=== PATIENT | male | born 1955 | race Caucasian/White ===

== ENCOUNTER 2019-08-31 09:15 | Emergency (ER) | payer OTHER, SELFPAY ==
[2019-08-31 09:16] VITALS: BP 130/77; PULSE 88; RESP 16; TEMP 36.9; O2SAT 96; BMI 35.1
--- NOTE | 2019-08-31 09:27 | RAD_ITS ---
STUDY: X-RAY - RIGHT KNEE REASON FOR EXAM: Male, 64 years old. Pain and swelling TECHNIQUE: 3 view(s) of the knee. COMPARISON: None. FINDINGS: There is demineralization of the visualized distal femur. There is demineralization of the tibia and fibula. Normal proximal tibiofibular articulation. Normal medial femorotibial compartment. Normal lateral femorotibial compartment. There is mild degenerative arthrosis of the patellofemoral articulation. There is focal superficial soft tissue edema anterior to the patella. RAD/Knee 3 Views IMPRESSION: Bony osteopenia. No visualized fracture. Superficial soft tissue edema. Electronically Signed: Maggie Augustine MD at 10:06 EST Tel , Service support ,
--- NOTE | 2019-08-31 09:29 | ED.VIS.GEN ---
History of Present Illness Informant: Patient Onset: Days - 2 Narrative: 64-year-old male with no reported past medical history presents with right knee pain. Patient dates of last 2 days has been having gradually worsening pain in his right knee. Denies any definite falls or injuries. However, he states that he does frequently bump it at work. States that last night he began to have worsening swelling. Denies any fever. Denies any nausea vomiting or diarrhea. Has been taking Tylenol with minimal relief. <Herminio Ascencio - Last Filed: 08/31/19 10:35> Context: Gradual Onset Current Severity: Moderate Maximum Severity: Moderate <Victoria Holman - Last Filed: 08/31/19 17:11> Chief Complaint: Lower Extremity Injury Past Medical History Surgical History: herniorrhaphy - R inguinal, - - metal plate in head, R temporal area. Had a colonoscopy in 2012 which was normal Smoking Status: Never smoker <Herminio Ascencio - Last Filed: 08/31/19 10:35> Past Medical History: None Lives: Spouse/ Significant Other <Victoria Holman - Last Filed: 08/31/19 17:11> - Allergies and Home Meds Allergies/Adverse Reactions: Allergies No Known Allergies Allergy (Verified 08/31/19 09:18) Primary Care Physician: Riki Pepper MD [STAFF PHYSICIAN] - 10-14 Days if not better Albert James MD [STAFF PHYSICIAN] - 3-5 Days Care Physician,No Primary [Primary Care Provider] - Review of Systems General: Denies: Chills, Fever Eyes: Denies: Visual changes - bilaterally Cardiovascular: Denies: Chest pain Respiratory: Denies: Dyspnea, Cough Gastrointestinal: Denies: Abdominal pain, Nausea, Diarrhea Musculoskeletal: Reports: Arthralgias, Swelling Skin: Denies: Rash, Abscess <Herminio Ascencio - Last Filed: 08/31/19 10:35> Neurological: Denies: Weakness, Parasthesia Hematologic: Denies: Easy bruising, Easy bleeding Allergy: Denies: Uticaria <Victoria Holman - Last Filed: 08/31/19 17:11> Physical Exam Vital Signs/Narrative: Vital Signs Temp Pulse Resp BP Pulse Ox 08/31/19 09:16 98.4 F 88 16 130/77 H 96 Inital Vital Signs reviewed: Yes General: Well nourished, Well developed Head: Normocephalic Eyes: Perrl, EOMI ENT: Moist mucous membranes Cardiovascular: Regular rate, Regular rhythm Respiratory: No distress, CTA bilaterally Abdomen: Soft, Nontender Extremities: - - Patient has what appears to be a prepatellar bursitis. Fluctuance over the patella. No warmth or erythema. Full range of motion of his right knee. No short arc range of motion pain. Distal pulses intact. Skin: Normal color, No rash <HollyHerminio kraus - Last Filed: 08/31/19 10:35> Neurological: Alert, Oriented x3 Psychological: Normal affect <Victoria Holman - Last Filed: 08/31/19 17:11> Diagnostic/Tx/Re-eval - Medical Decision Making Evaluated for right knee swelling and pain. On exam he appears to have a prepatellar bursitis. I do not suspect a septic arthritis. He has no short arc pain with range of motion. X-ray obtained. His x-ray is unremarkable. Knee was cleaned with chlorhexidine. 18-gauge needle was used to aspirate 10 cc of non-turbid fluid from patella bursa. Knee then wrapped with Hunter wrap. Patient tolerated procedure well She is given naproxen and prednisone. Given orthopedic and primary care doctor referral. Patient was then discharged home. Patient was given strict return precautions <Herminio Ascencio - Last Filed: 08/31/19 10:35> Impressions Knee X-Ray 08/31/19 09:27 IMPRESSION: Bony osteopenia. No visualized fracture. Superficial soft tissue edema. Electronically Signed: Maggie Augustine MD at 10:06 EST Tel , Service support , 08/31/19 09:27 Xray Knee [Knee 3 Views] [RAD] Stat - Medical Decision Making Patient seen and evaluated with resident. Patient presents with a couple day history of increasing right knee pain. This morning he was seen feeling more swollen. 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 Denies any specific injury. Patient sitting upright in bed no acute distress. Head neck examination unremarkable. Heart is regular rate and rhythm. Lung sounds are clear. Abdomen is soft and nontender. Right lower extremity examination reveals prepatellar swelling consistent with bursitis. Minimal erythema. No significant warmth. Patient has slow range of motion of the right knee secondary to swelling and pain. Strong distal pulses are noted. Right knee x-rays are obtained. Fluid is withdrawn from the bursal sac. It does not appear hazy. Hunter wrap was applied over the knee. He is given naproxen and prednisone. He is referred to local PCP and orthopedics for follow-up. <Victoria Holman - Last Filed: 08/31/19 17:11> ED Disposition <Herminio Ascencio - Last Filed: 08/31/19 10:35> <Victoria Holman - Last Filed: 08/31/19 17:11> - Plan for ED Patient: Disposition: Home or Assisted Living Diagnosis: Bursitis Instructions: Bursitis Prescriptions: Naproxen [Naprosyn] 500 mg PO BID PRN #20 tab Prescription Printed predniSONE tablet 60 mg PO DAILY #12 tab Prescription Printed Referrals: Care Physician,No Primary [Primary Care Provider] - Riki Pepper MD [STAFF PHYSICIAN] - 10-14 Days if not better Albert James MD [STAFF PHYSICIAN] - 3-5 Days
[2019-08-31] MEDS: Naproxen 500 MG Tablet PO (11:13)
[2019-08-31] MEDS: predniSONE 20 MG Tablet 40 MG PO (11:13)
== END 2019-08-31 11:25 | disposition home or self-care (01) ==
PROVIDERS: Emergency Provider Emergency Medicine
DX: M70.41 Prepatellar bursitis, right knee (principal)
CPT/HCPCS: 20610; 73562; 99283

== ENCOUNTER 2019-09-16 12:31 | Emergency (ER) | payer OTHER, SELFPAY ==
[2019-09-16 12:31] VITALS: BP 130/79; PULSE 74; RESP 18; TEMP 36.6; O2SAT 96; BMI 38.3
--- NOTE | 2019-09-16 15:06 | ED.VISSUMM ---
- ER Visit Summary Date of Service: 09/16/19 Chief Complaint: Right knee pain History of Present Illness: The patient is a 64 M history of prior bursitis. States he states that this is swollen in the past. In the last 2 days it swollen again. Smiling and comfortable. He does kneel on his knees from time to time. He denies any fall or trauma. No fever or chills. No prior knee surgery. No other complaints. Physical Examination: Older male no acute distress vital signs stable afebrile. H EENT exam unremarkable. Lungs are clear. Heart regular rhythm. Abdomen soft nontender. Extremities moves all 4. Neurovascular intact. He is an obvious right knee prepatellar bursitis. Mildly tender. Mildly swollen. There is no signs of septic joint. No cellulitis. No significant redness. He has normal range of motion to his knee. There is no gross bony deformity. Right foot is neurovascular intact. There is no edema or calf tenderness in the right lower leg. Test Results: None Emergency Department Course and Treatment: Procedure note: Right knee was cleaned with Shur-Clens washed and then cleaned with iodine. I withdrew about 15 cc of straw-colored bursa fluid but also had a small amount of blood consistent with a traumatic bursitis. There is no pus. It was not cloudy. I then injected 10 mg of Kenalog. Patient tolerated procedure well. He was warned to watch for any signs of infection. Treatment Plan: Ice the knee. Elevate. Follow-up with orthopedics. Jer for pain and inflammation. Disposition: Discharge Impression: Right knee prepatellar bursitis Bursa aspiration and bursa steroid injection with Kenalog by ER This note was generated with [employer] dictation software. It may contain incorrect words, spelling, and punctuation that were not noted in review of the chart prior to signing ED Disposition - Plan for ED Patient: Referrals: Care Physician,No Primary [Primary Care Provider] -
--- NOTE | 2019-09-16 15:09 | ED.DEP ---
ED Disposition - Plan for ED Patient: Disposition: Home or Assisted Living Instructions: Bursitis Referrals: Garrett Gan DO [STAFF PHYSICIAN] - 1 Week if not improving Additional Instructions: Ice and elevate your right knee to decrease inflammation of the bursa sac. Aleve for pain and inflammation. Watch for any signs of infection such as pain fever or chills or severe redness about your knee. Is seen return. Follow-up with a local orthopedic surgeon to discuss further treatment of your right knee prepatellar bursitis if it returns or gets worse.
[2019-09-16] MEDS: Triamcinolone Acetonide 40 MG/ML Vial IU (15:24)
== END 2019-09-16 15:27 | disposition home or self-care (01) ==
PROVIDERS: Emergency Provider Emergency Medicine
DX: M70.41 Prepatellar bursitis, right knee (principal)
CPT/HCPCS: 20610; 99282

== ENCOUNTER 2019-11-22 11:47 | Emergency (ER) | payer SELFPAY ==
[2019-11-22 11:48] VITALS: BP 118/64; PULSE 75; RESP 16; TEMP 36.3; O2SAT 97; BMI 36.3
--- NOTE | 2019-11-22 12:42 | ED.VIS.GEN ---
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 States is on his knees a lot. He has had this drained several times in the past. He presents because of swelling and slight discomfort. There is no history of diabetes. He is not on an anticoagulant. He denies paresthesia, anesthesia or motor weakness. Prior similar symptoms: No Recent Illness/Hospitalization: No - Past Medical History (1) Bursitis of right knee Status: Acute (2) Chest pain Status: Acute (3) GERD (gastroesophageal reflux disease) Status: Chronic Past Medical History - Allergies and Home Meds Allergies/Adverse Reactions: Allergies No Known Allergies Allergy (Verified 11/22/19 11:50) Primary Care Physician: Care Physician,No Primary [Primary Care Provider] - Prior records reviewed: Yes Surgical History: herniorrhaphy - R inguinal, - - metal plate in head, R temporal area. Had a colonoscopy in 2013 which was normal Lives: Spouse/ Significant Other Smoking Status: Never smoker Alcohol: None Drugs: None Review of Systems General: Denies: Chills, Fever, Subjective, Sweats Musculoskeletal: Reports: Swelling, Extremity Pain. Denies: Myalgias, Arthralgias, Neck pain, Back pain, -, - Skin: Denies: Rash, Wounds Neurological: Denies: Weakness, Parasthesia, Numbness Hematologic: Denies: Easy bruising, Easy bleeding Allergy: Denies: Uticaria, Swelling of the mouth, Swelling of the tongue Physical Exam Vital Signs/Narrative: Vital Signs Temp Pulse Resp BP Pulse Ox 11/22/19 11:48 97.4 F L 75 16 118/64 97 Inital Vital Signs reviewed: Yes General: Well nourished, Well developed, Obese, No Acute Distress Head: Normocephalic, Atraumatic Eyes: Perrl, EOMI ENT: Moist mucous membranes, No rhinorrhea Cardiovascular: Regular rate Respiratory: Diminished Extremities: Nontender, No edema, - - Has a prepatellar bursitis on the right. There is no erythema, warmth, induration or lymphangitis. There is no inguinal adenopathy. There is fluctuance. Skin: Normal color, No rash Neurological: Alert, Oriented x3, Cranial nerves II-XII grossly intact, Normal Strength, Normal Sensation Psychological: Normal affect, Normal Mood Diagnostic/Tx/Re-eval - Medical Decision Making Traumatic versus septic bursitis Procedures Procedure(s): He was prepped draped. Using an 18-gauge needle 26 cc of bloody serous fluid was aspirated. It does not appear turbid. ED Disposition - Plan for ED Patient: Disposition: Home or Assisted Living Diagnosis: Bursitis of right patella Instructions: Bursitis Referrals: Care Physician,No Primary [Primary Care Provider] - Additional Instructions: She do not have a primary care physician you were referred to Dr. Danilo Lechuga
[2019-11-22 12:56] VITALS: RESP 18
== END 2019-11-22 12:58 | disposition home or self-care (01) ==
LOC: ED 12:57
PROVIDERS: Emergency Provider Emergency Medicine
DX: M70.41 Prepatellar bursitis, right knee (principal); Y93.9 Activity, unspecified; R07.9 Chest pain, unspecified; K21.9 Gastro-esophageal reflux disease without esophagitis; E66.9 Obesity, unspecified
CPT/HCPCS: 20610; 99282

== ENCOUNTER 2021-09-29 09:52 | Emergency (ER) | payer OTHER, SELFPAY ==
[2021-09-29 09:54] VITALS: BP 142/92; PULSE 101; RESP 18; TEMP 36.8; O2SAT 95; BMI 39.6
--- NOTE | 2021-09-29 10:09 | RAD_ITS ---
STUDY: X-RAY CHEST REASON FOR EXAM: Male, 66 years old. Cough TECHNIQUE: Single AP portable view of the chest. COMPARISON: Comparison is made with prior study 02/03/2014. FINDINGS: There is hyperinflation of the lungs consistent with chronic obstructive lung disease (COPD). There is no demonstrated pleural abnormality. Normal size heart. Normal mediastinum and meagan. Normal visualized pulmonary arteries. Normal visualized aortic arch and descending thoracic aorta. There are diffuse degenerative changes of the visualized thoracic spine. Normal visualized ribs, clavicles, and shoulders. There is no demonstrated abnormality of the visualized soft tissue structures of the upper abdomen. RAD/Chest 1 View (Portable) IMPRESSION: Hyperinflation. Electronically Signed: Mega Jones MD at 11:33 EST , Service support ,
--- NOTE | 2021-09-29 10:13 | EDS_ITS ---
HPI History of Present Illness Chief Complaint: General Illness Narrative Narrative: for about 1 week. Patient states he had a low-grade fever but he has been taking Tylenol and this is improved.66-year-old male presenting with a cough. Patient admits to body aches and chills that are mild. He states that he really came in today because his back hurts from coughing so much. It is left lower back. Patient denies any trauma. No loss of bladder or bowel control. Patient denies any chest pain he does not have any significant shortness of breath. Patient was not vaccinated for COVID-19. He states he is unsure if he is interested in monoclonal antibody treatment. PFSH PFSH Home Medications naproxen 500 mg PO BID PRN #20 tab 08/31/19 [Rx Last Taken Unknown] prednisone 60 mg PO DAILY #12 tab 08/31/19 [Rx Last Taken Unknown] cyclobenzaprine 10 mg PO TID PRN #20 tablet 09/29/21 [Rx Last Taken Unknown] naproxen [Naprosyn] 500 mg PO BID PRN #20 tab 09/29/21 [Rx Last Taken Unknown] promethazine-DM 5 ml PO Q6H PRN #118 ml 09/29/21 [Rx Last Taken Unknown] Allergy/AdvReac Type Severity Reaction Status Date / Time No Known Allergies Allergy Verified 09/29/21 09:57 Social History Smoking Status: Never smoker ROS ROS ED Constitutional Constitutional ED: Reports chills and fever(s) Eyes Eyes: Denies blurry vision or diplopia ENT ENT ED: Reports rhinorrhea and sore throat Cardiovascular Cardiovascular: Denies chest pain or palpitations Respiratory/Chest Respiratory/Chest: Reports cough; Denies dyspnea Gastrointestinal Gastrointestinal: Denies abdominal pain, nausea or vomiting Genitourinary Genitourinary ED: Denies dysuria or hematuria Musculoskeletal Musculoskeletal: Reports back pain and myalgias; Denies arthralgias or neck pain Integumentary Denies Abrasions or rash Neurologic Neurologic: Denies headache(s) or paresthesias EXAM Physical Exam Const Vital Signs: 09/29/21 09:54 09/29/21 11:23 09/29/21 12:08 Temperature 98.2 F Temperature Source Temporal Pulse Rate 101 H 60 Respiratory Rate 18 18 Respiratory Pattern Normal Blood Pressure 142/92 H 116/67 Blood Pressure Mean 108 83 Pulse Ox 95 97 Oxygen Delivery Method Room Air Room Air 09/29/21 12:34 Temperature Temperature Source Pulse Rate 80 Respiratory Rate 18 Respiratory Pattern Blood Pressure 140/78 H Blood Pressure Mean Pulse Ox 96 Oxygen Delivery Method Positive well nourished General Appearance ED: NAD; Negative for pallor HEENT Reports moist mucous membranes Negative for trauma Eyes PERRL and EOMs intact bilaterally General Eye ED: Negative for pale conjunctiva or scleral icterus Chest Wall inspection of chest normal and palpation of chest normal Resp normal respiratory effort and clear to auscultation bilaterally Cardio regular rate and regular rhythm GI normal to inspection, nondistended, normoactive bowel sounds Back/Spine no CVA tenderness Back/Spine Narrative: Left lumbar paraspinal muscular tenderness. No midline spinal deformity, step-off Neuro oriented x3 and CN's II-XII intact bilaterally Sensorium / Orientation: alert Psych mental status grossly normal Skin General Skin Exam: Negative for jaundice or pallor MDM MDM MDM Narrative Medical decision making narrative: Patient presenting with a slight cough only has normal vital signs. He states that his heart symptoms goes he just had a low-grade fever and feels otherwise well. He is not dyspneic and is not having chest pain. He does complain of back pain and he is given Toradol and Norflex IM in the ED. This did help his back pain. I obtained a chest x-ray which on my interpretation shows no acute cardiopulmonary process and the radiologist does agree. I did not believe he needs back films I think I can treat this symptomatically. I did test him for COVID-19 with a PCR test which is pending but given his normal vital signs and the fact that he does not want to be treated with monoclonal antibodies I feel he is stable to be discharged home. Patient did come back positive for COVID-19. Patient was given information on monoclonal antibodies prior to leaving. I did put in a referral for the monoclonal antibodies just in case he changes his mind. Impression: 1. COVID-19 2. Lumbar strain Lab Data Labs: Laboratory Results - last 24 hr 09/29/21 10:45 COVID-19 (JACY) Detected Radiography Diagnostic Testing: Clinical Impression(s) from Imaging Studies Chest X-Ray 09/29/21 10:09 IMPRESSION: Hyperinflation. Electronically Signed: Mega Jones MD at 11:33 EST , Service support , Discharge Plan Triage Chief Complaint: General Illness ED Provider: Yazan Blunt Dx/Rx/DC Orders Instructions: ED Viral Syndrome (Adult) Prescriptions: New promethazine-DM 6.25-15 mg/5 mL syrup 5 ml PO Q6H PRN (Reason: cough) Qty: 118 RF: 0 cyclobenzaprine 10 mg tablet 10 mg PO TID PRN (Reason: Muscle Spasm) Qty: 20 RF: 0 naproxen [Naprosyn] 500 mg tablet 500 mg PO BID PRN (Reason: pain) Qty: 20 RF: 0 No Action prednisone 20 MG tablet 60 mg PO DAILY Qty: 12 RF: 0 naproxen 500 MG tablet 500 mg PO BID PRN Qty: 20 RF: 0 Other Ambulatory Orders: COVID Outpatient Monoclonal Antibody Referral (Routine) Timeframe: 1 Day Facility: [facility] - Location: [facility] Ordered By: Dr. Yazan Blunt Primary Care Provider: Care Physician,No Primary Referrals: Care Physician,No Primary [Primary Care Provider] - Disposition Disposition: Home, Self Care Discharge Date/Time: 09/29/21 12:35
[2021-09-29] MEDS: Ketorolac 15 MG/ML Vial IM (11:32)
[2021-09-29] MEDS: Orphenadrine 60 MG/2 ML Ampul IM (11:35)
[2021-09-29 12:08] VITALS: BP 116/67; PULSE 60; RESP 18; O2SAT 97
[2021-09-29 12:34] VITALS: BP 140/78; PULSE 80; RESP 18; O2SAT 96
== END 2021-09-29 12:35 | disposition home or self-care (01) ==
PROVIDERS: Emergency Provider Student in an Organized Health Care Education/Training Program
DX: U07.1 COVID-19 (principal); S39.012A Strain of muscle, fascia and tendon of lower back, initial encounter; X58.XXXA Exposure to other specified factors, initial encounter
CPT/HCPCS: 71045; 87635; 96372; 99282; U0005; U0003

== ENCOUNTER 2021-10-03 14:38 | Emergency (ER) | payer OTHER, SELFPAY ==
[2021-10-03 14:39] VITALS: BP 138/80; PULSE 125; RESP 18; TEMP 36.3; O2SAT 91; BMI 39.1
--- NOTE | 2021-10-03 14:57 | EKG12_ITS ---
Test Reason : Blood Pressure : / mmHG Vent. Rate : 113 BPM Atrial Rate : 113 BPM P-R Int : 130 ms QRS Dur : 082 ms QT Int : 304 ms P-R-T Axes : 047 027 052 degrees QTc Int : 416 ms Sinus tachycardia Otherwise normal ECG Confirmed by REJI WATSON, MARGOT ([id number]), social media editor MIRTHA MAURO ([id number]) on 10/05/2021 9:55:30 AM Referred By: NIK Confirmed By:MARGOT MENDOZA MD
--- NOTE | 2021-10-03 14:57 | EX.ED.DYSGE1 ---
HPI History of Present Illness Chief Complaint: Nausea/Vomiting Informant: patient Onset/Context/Timing Onset: Days Context: Gradual Onset Current Severity: Moderate Maximum Severity: Moderate Narrative Narrative: Patient presents on day 6 of Covid symptoms. Patient was here last week and diagnosed. He states he still has low-grade fever that resolved with Tylenol. He has mild cough. His primary concern today is nausea and vomiting preventing him from eating. He states he is still urinating normally. [facility] Medical History (Updated 10/03/21 @ 16:[address] Victoria Holman MD) GERD (gastroesophageal reflux disease) Home Medications cyclobenzaprine 10 mg PO TID PRN #20 tablet 09/29/21 [Rx Last Taken Unknown] promethazine-DM 5 ml PO Q6H PRN #118 ml 09/29/21 [Rx Last Taken Unknown] ondansetron 4 mg PO Q8H PRN #10 tab 10/03/21 [Rx Last Taken Unknown] Allergy/AdvReac Type Severity Reaction Status Date / Time No Known Allergies Allergy Verified 10/03/21 14:41 Social History Smoking Status: Never smoker ROS ROS ED Constitutional Constitutional ED: Reports fever(s); Denies chills Eyes Eyes: Denies change in vision ENT ENT ED: Reports other Details: Dry mucous membrane ; Denies sore throat Cardiovascular Cardiovascular: Denies chest pain Respiratory/Chest Respiratory/Chest: Reports dyspnea; Denies cough Gastrointestinal Gastrointestinal: Reports nausea and vomiting; Denies abdominal pain or diarrhea Genitourinary Genitourinary ED: Denies dysuria Musculoskeletal Musculoskeletal: Denies back pain Integumentary Denies rash Neurologic Neurologic: Denies headache(s) or weakness Allergic/Immunologic Allergic/Immunologic ED: Denies urticaria EXAM Physical Exam Const Vital Signs: 10/03/21 14:39 Temperature 97.4 F L Temperature Source Temporal Pulse Rate 125 H Respiratory Rate 18 Blood Pressure 138/80 H Blood Pressure Mean 99 Pulse Ox 91 Oxygen Delivery Method Room Air Positive well nourished and well developed General Appearance ED: well developed HEENT Reports dry mucous membranes Mouth ED: Yes dry mucous membranes Mouth: dry mucous membranes Eyes PERRL and EOMs intact bilaterally Neck supple Chest Wall inspection of chest normal and palpation of chest normal Resp normal respiratory effort and clear to auscultation bilaterally Cardio regular rate and regular rhythm GI non-tender Auscultation: hypoactive bowel sounds Palpation: soft Extremity normal to inspection Neuro oriented x3 Sensorium / Orientation: alert Skin no rashes or lesions noted MDM MDM MDM Narrative Medical decision making narrative: Patient given 500 cc IV fluid bolus. BMP and EKG obtained. Following EKG Zofran given. Lab Data Labs: Laboratory Results - last 24 hr 10/03/21 15:20 Sodium 133 L Potassium 4.7 Chloride 99 Carbon Dioxide 25.0 Anion Gap 9 BUN 24 H Creatinine 1.37 H Estim Creat Clear Calc 50.93 Est GFR (MDRD) Af Amer 67 Est GFR (MDRD) Non-Af 56 L BUN/Creatinine Ratio 17.5 Glucose 114 H Calcium 8.5 EKG Initial EKG: Attestation: I personally reviewed and interpreted this EKG as follows: Interpretation: Sinus Tachycardia (Sinus tach at 113. No acute ischemia.) Treatment and Re-Evaluation Comments:: Repeat evaluation patient feels improved. He will be given prescription for Zofran. He declines referral for monoclonal antibodies. He does have a pulse ox at home and has been watching his pulse ox. He will return for oxygen saturations below 88%. Discharge Plan Triage Chief Complaint: Nausea/Vomiting ED Provider: Victoria Holman Dx/Rx/DC Orders Clinical Impression: COVID-19, Vomiting, Dehydration Instructions: Coronavirus Disease 2019 (COVID-19): Caring for Yourself or Others, ED Vomiting (Adult) Prescriptions: New ondansetron 4 mg tablet,disintegrating 4 mg PO Q8H PRN (Reason: nausea and vomiting) Qty: 10 RF: 0 No Action promethazine-DM 6.25-15 mg/5 mL syrup 5 ml PO Q6H PRN (Reason: cough) Qty: 118 RF: 0 cyclobenzaprine 10 mg tablet 10 mg PO TID PRN (Reason: Muscle Spasm) Qty: 20 RF: 0 Primary Care Provider: Care Physician,No Primary Referrals: Alicia Chambers MD [STAFF PHYSICIAN] - As Needed Care Physician,No Primary [Primary Care Provider] - Disposition Disposition: Home, Self Care
[2021-10-03 15:41] LABS: Anion Gap 9 (5-15); BUN 24 mg/dL (7-18); BUN/Creat Ratio 17.5 RATIO (10-20); Calcium,Total 8.5 mg/dL (8.5-10.1); Chloride 99 mmol/L (98-107); Creatinine, Serum 1.37 mg/dL (0.70-1.30); EST Glomerular Filtration Rate 56 mL/min (>60); Est Glom Filt Rate - Afr Amer 67 mL/min (>60); Estimated Creatinine Clearance 50.93 ml/min; Glucose 114 mg/dL (74-106); Potassium 4.7 mmol/L (3.5-5.1); Sodium Level 133 mmol/L (136-145)
[2021-10-03] MEDS: Ondansetron 4 MG/2 ML Vial IV (15:46)
[2021-10-03 16:58] VITALS: BP 117/73; PULSE 93; RESP 18; O2SAT 93
== END 2021-10-03 17:00 | disposition home or self-care (01) ==
PROVIDERS: Emergency Provider Emergency Medicine
DX: U07.1 COVID-19 (principal); R11.2 Nausea with vomiting, unspecified; E86.0 Dehydration; K21.9 Gastro-esophageal reflux disease without esophagitis; Z79.899 Other long term (current) drug therapy
CPT/HCPCS: 80048; 93005; 96374; 99283; J7040; A4216; J2405

== ENCOUNTER 2021-10-09 13:55 | Inpatient (IN) | payer OTHER, SELFPAY ==
[2021-10-09] VITALS (8 sets, daily range): BP systolic 109–128; BP diastolic 71–86; PULSE 89–137; RESP 15–20; TEMP 36.2–37.1; O2SAT 83–96; BMI 39.1; BMI 32.9
--- NOTE | 2021-10-09 14:49 | EDS_ITS ---
HPI HPI - URI History of Present Illness Chief Complaint: Shortness of Breath Informant: patient Onset/Context/Timing Onset: Days Context: Gradual Onset Timing: Continuous Current Severity: Mild Maximum Severity: Mild Associated Symptoms Associated Symptoms: Positive for Nasal Congestion, Myalgias, Nausea, Vomiting, Shortness of Breath and Nonproductive cough; Negative for Diarrhea Narrative Narrative: 66-year-old male no significant past medical history according to him. On 1214 he was diagnosed as a Covid positive with testing. Said he had symptoms 5 to 7 days before that so he is around 19 days now. Just feeling worse she has had decreased intake and has had nausea. No vomiting or diarrhea. Intermittent fevers. He is normally not on oxygen. He denies being a smoker. He was unvaccinated. Denies any leg pain, swelling, hemoptysis nor recent admissions nor surgery. No DVT or PE history. Prior similar symptoms: No Recent Illness/Hospitalization: No ROS ROS ED ROS Narrative Cough, shortness of breath, nausea. Body aches. Review of Systems ROS Unobtainable: Denies due to encephalopathy Constitutional Constitutional ED: Reports chills, fever(s) and subjective Eyes Eyes: Denies change in vision ENT ENT ED: Denies ear pain or sore throat Cardiovascular Cardiovascular: Denies chest pain or palpitations Respiratory/Chest Respiratory/Chest: Reports cough and dyspnea Gastrointestinal Gastrointestinal: Reports nausea; Denies abdominal pain, constipation, diarrhea or vomiting Genitourinary Genitourinary ED: Denies dysuria Musculoskeletal Musculoskeletal: Reports myalgias Integumentary Denies rash Neurologic Neurologic: Denies headache(s) Psychiatric Psychiatric: Denies depression Endocrine Endocrinology: Denies polyuria Hematologic/Lymphatic Hematologic/Lymphatic: Denies easy bruising Allergic/Immunologic Allergic/Immunologic ED: Denies urticaria [facility] Medical History GERD (gastroesophageal reflux disease) Home Medications cyclobenzaprine 10 mg PO TID PRN #20 tablet 09/29/21 [Rx Last Taken Unknown] promethazine-DM 5 ml PO Q6H PRN #118 ml 09/29/21 [Rx Last Taken Unknown] ondansetron 4 mg PO Q8H PRN #10 tab 10/03/21 [Rx Last Taken Unknown] dexamethasone [Decadron] 6 mg PO DAILY 10 Days #10 tab 10/09/21 [Rx Last Taken Unknown] Allergy/AdvReac Type Severity Reaction Status Date / Time No Known Allergies Allergy Verified 10/09/21 13:57 Social History Smoking Status: Never smoker EXAM Physical Exam Narrative Exam Narrative: 66-year-old male vital signs tachycardia 137 and hypoxic at 83% on room air consistent with hypoxia. Clinically looks dehydrated with dry mucous membranes. HEENT exam dry mucous memories. Neck nontender no JVD. Lungs clear to auscultation bilaterally. Heart tachycardic no murmur. Abdomen soft nondistended normal bowel sounds no peritoneal signs. Moving all 4 extremities. Nontender no edema. Neurologically is awake and alert. On my exam he is on oxygen. Const Vital Signs: 10/09/21 13:57 10/09/21 15:13 Temperature 97.1 F L Temperature Source Temporal Pulse Rate 137 H Respiratory Rate 20 H 18 Blood Pressure 110/86 H Blood Pressure Mean 94 Pulse Ox 83 Oxygen Delivery Method Room Air Positive well nourished and well developed; Negative for obese, cachectic or contractures General Appearance ED: well developed; Negative for cachectic, contractures, cyanotic, diaphoretic or pallor Nutritional Appearance: Negative for cachectic or obese HEENT Reports dry mucous membranes normocephalic and atraumatic External Ear: external ears normal Mouth ED: Yes dry mucous membranes Mouth: dry mucous membranes Neck no lymphadenopathy, supple, no meningeal signs and no JVD General: Negative for anterior neck swelling or lymphadenopathy Resp normal respiratory effort and clear to auscultation bilaterally Auscultation: Negative for rales, rhonchi or wheezes Cardio S1 normal heart sound, S2 normal heart sound and no murmurs Rate: tachycardic; Negative for regular rate Rhythm: regular rhythm GI non-tender, non-distended and no masses Inspection: Negative for abdominal distention Auscultation: normoactive bowel sounds Palpation: soft; Negative for tender or guarding Back/Spine no CVA tenderness and normal ROM General Back: Negative for CVA tenderness Extremity normal to inspection and full ROM General Extremety ED: Negative for cyanosis or tenderness General Extremity: Negative for cyanosis Neuro oriented x3 Sensorium / Orientation: alert, oriented to person, oriented to place and oriented to time; Negative for orientation impaired, lethargic or stuporous Motor Exam: strength 5/5 throughout; Negative for general weakness or strength abnormal Psych mental status grossly normal Mood & Affect: Negative for depressed Skin General Skin Exam: Negative for jaundice or pallor Lesions: no lesions Rashes: no rashes MDM MDM MDM Narrative Medical decision making narrative: 66-year-old male has had symptoms for about 18 to 19 days and Covid positive on 27 September. Clinically looks dehydrated he is tachycardic. Hypoxic. Labs and x-ray are being obtained. Repeat exam at 4:08 PM unchanged. Discussed with patient his lab results and chest x-ray. We were considering discharging patient home and setting up home oxygen on 4 L he is only in the mid 80s and he will need to be admitted to the hospital. His is also Covid positive and also being admitted. Lab Data Attestation: I reviewed the patient's lab results. Lab results narrative: CBC shows a normal white count of 7. Hemoglobin 15. Platelets 266. Electrolytes sodium 134 gap of 8 BUN 19 creatinine 1 liver enzymes total bilirubin slightly elevated 1.3. Chest x-ray consistent with bilateral Covid pneumonitis Labs: Laboratory Results - last 24 hr 10/09/21 10/09/21 15:08 15:08 WBC 7.6 RBC 5.38 Hgb 15.7 Hct 46.5 MCV 86.4 MCH 29.2 MCHC 33.8 RDW Std Deviation 40.4 RDW Coeff of Eryn 12.8 Plt Count 266 MPV 10.3 Immature Gran % (Auto) 1.600 H Neut % (Auto) 85.6 H Lymph % (Auto) 7.6 L Estill % (Auto) 4.3 Eos % (Auto) 0.4 Baso % (Auto) 0.5 Absolute Neuts (auto) 6.5 Absolute Lymphs (auto) 0.58 L Nucleated RBC % 0 Differential Comment SCANNED Sodium 134 L Potassium 4.3 Chloride 101 Carbon Dioxide 25.0 Anion Gap 8 BUN 19 H Creatinine 1.00 Estim Creat Clear Calc 69.77 Est GFR (MDRD) Af Amer 97 Est GFR (MDRD) Non-Af 80 BUN/Creatinine Ratio 19.0 Glucose 110 H Calcium 8.9 Total Bilirubin 1.30 H AST 61 H ALT 59 Alkaline Phosphatase 85 Total Protein 6.8 Albumin 2.2 L Globulin 4.6 H Albumin/Globulin Ratio 0.5 L Radiography Diagnostic Testing: Clinical Impression(s) from Imaging Studies Chest X-Ray 10/09/21 15:20 IMPRESSION: Interval development of multifocal Covid 19 pneumonia bilaterally. Electronically Signed: Moy Rodriguez MD at 16:10 EST Tel , Service support , Discharge Plan Triage Chief Complaint: Shortness of Breath ED Provider: Yariel Hinton Dx/Rx/DC Orders Clinical Impression: COVID-19, Hypoxia Instructions: Human Coronaviruses Prescriptions: New dexamethasone [Decadron] 6 mg tablet 6 mg PO DAILY 10 Days Qty: 10 RF: 0 No Action promethazine-DM 6.25-15 mg/5 mL syrup 5 ml PO Q6H PRN (Reason: cough) Qty: 118 RF: 0 cyclobenzaprine 10 mg tablet 10 mg PO TID PRN (Reason: Muscle Spasm) Qty: 20 RF: 0 ondansetron 4 mg tablet,disintegrating 4 mg PO Q8H PRN (Reason: nausea and vomiting) Qty: 10 RF: 0 Primary Care Provider: Care Physician,No Primary Referrals: Kenneth Jensen MD [STAFF PHYSICIAN] - 1 Week if not improving Care Physician,No Primary [Primary Care Provider] - Activity Restrictions/Additional Instructions: Plenty of fluids and rest. Tylenol for any fever. Use oxygen all the time currently while you are still ill because your oxygen is running low due to the Covid inflammation in your lungs. If you are not already on it start the prescription Decadron which is a steroid which she will take once a day for the next 10 days to try to help decrease the inflammation in your lungs. If you are feeling a lot worse return to the emergency department you might need to be admitted. Disposition Disposition: Acute Care [facility]
[2021-10-09] MEDS: 0.9% Normal Saline 1,000 ML 1000 ML IV (15:15)
[2021-10-09] MEDS: Ondansetron 4 MG/2 ML Vial IV (15:15)
[2021-10-09 15:19] LABS: Absolute Lymphocyte Count 0.58 X10^3/uL (0.83-4.51); Absolute Neutrophil Count 6.5 X10^3/uL (2.0-7.7); Basophil# 0.04 X10^3/uL; Basophil% 0.5 % (0-1); Eosinophil# 0.03 X10^3/uL; Eosinophils% 0.4 % (0-5); Hematocrit 46.5 % (40-54); Hemoglobin 15.7 g/dL (13.0-16.5); Lymphocyte # 0.58 X10^3/ul (0.83-4.51); Lymphocyte % 7.6 % (19-41); Mean Corp Hgb Conc 33.8 g/dL (32-36); Mean Corpuscular Hgb 29.2 pg (27.0-32.0); Mean Corpuscular Volume 86.4 fL (80-94); Mean Platelet Vol. 10.3 fl (6.2-12.0); Monocyte# 0.33 X10^3/uL; Monocyte% 4.3 % (0-10); NRBC Flagged by Analyzer 0 % (0-5); Neutrophil # 6.49 X10^3/uL (2.7-7.7); Neutrophil % 85.6 % (47-70); POSITIVE DIFFERENTIAL YES; Platelet Count 266 K/mm3 (150-450); RBC Distribution Width CV 12.8 % (11.6-14.6); RBC Distribution Width SD 40.4 fl (35.1-43.9); Red Blood Count 5.38 M/mm3 (4.6-6.2); White Blood Count 7.6 K/mm3 (4.4-11.0)
[2021-10-09 15:20] LABS: Differential Indicated SCAN CRITERIA MET
--- NOTE | 2021-10-09 15:20 | RAD_ITS ---
STUDY: X-RAY CHEST REASON FOR EXAM: Male, 66 years old. covid shortness of breath. TECHNIQUE: One view COMPARISON: 09/29/2021 FINDINGS: Cardiomediastinal silhouette is unremarkable. Costophrenic angles are sharp. There has been interval development of multiple peripheral patchy opacities throughout the bilateral lungs. The trachea is midline. There is no pneumothorax. Multilevel thoracic spondylosis noted. RAD/Chest 1 View (Portable) IMPRESSION: Interval development of multifocal Covid 19 pneumonia bilaterally. Electronically Signed: Moy Rodriguez MD at 16:10 EST Tel , Service support ,
[2021-10-09 15:47] LABS: ALB/GLOB Ratio 0.5 RATIO (0.9-2.4); AST(SGOT) 61 U/L (15-37); Alanine Aminotransfer ALT/SGPT 59 U/L (16-61); Albumin, Serum 2.2 g/dL (3.2-5.0); Alkaline Phosphatase 85 U/L (45-117); Anion Gap 8 (5-15); BUN 19 mg/dL (7-18); Calcium,Total 8.9 mg/dL (8.5-10.1); Chloride 101 mmol/L (98-107); EST Glomerular Filtration Rate 80 mL/min (>60); Est Glom Filt Rate - Afr Amer 97 mL/min (>60); Estimated Creatinine Clearance 69.77 ml/min; Globulin 4.6 g/dL (2.2-4.2); Glucose 110 mg/dL (74-106); Potassium 4.3 mmol/L (3.5-5.1); Protein, Total 6.8 g/dL (6.4-8.2); Sodium Level 134 mmol/L (136-145)
[2021-10-09 16:03] LABS: Differential Comment SCANNED
--- NOTE | 2021-10-09 16:29 | ED.RN ---
pt pulse ox at rest 88%. ambulated about 8-10 ft. pulse ox 83 post ambulated on RA. 4 l nc applied. waited 5 minutes at rest. pulse ox 85%. HR 133. Dr. Hinton aware.,
--- NOTE | 2021-10-09 16:52 | HP.PCM.HOS_ITS ---
HPI - General General Date of Admission: 10/09/21 HPI Narrative AVILA OLIVER, is a 66 M with a pMH as outlined who presents with a complaint of shortness of breath, nasal congestion, nausea and vomiting. He tested positive for COVID on 09/27/2021, and his symptoms had started ~ 7 days before then, ~ 09/20/2021. His symptoms have been worsening at home, so he came in to the hospital. He denied any chest pain, nausea, vomiting or diarrhea. Review of systems was otherwise negative. Patient is unvaccinated. Vitals were temperature of 97.1F, OR of 127, RR of 15 and he was saturating at 87% on 4L of oxygen. CBC and BMP were essentially unremarkable and total bilirubin was mildly elevated at 1.3. Chest x-ray showed interval development of multifocal COVID-19 pneumonia bilaterally. He has been admitted to be managed for acute hypoxic respiratory failure due to COVID-19 pneumonia. [facility] Medical History GERD (gastroesophageal reflux disease) Home Medications cyclobenzaprine 10 mg PO TID PRN #20 tablet 09/29/21 [Rx Last Taken Unknown] promethazine-DM 5 ml PO Q6H PRN #118 ml 09/29/21 [Rx Last Taken Unknown] ondansetron 4 mg PO Q8H PRN #10 tab 10/03/21 [Rx Last Taken Unknown] dexamethasone [Decadron] 6 mg PO DAILY 10 Days #10 tab 10/09/21 [Rx Last Taken Unknown] Allergy/AdvReac Type Severity Reaction Status Date / Time No Known Allergies Allergy Verified 10/09/21 13:57 Social History Smoking Status: Never smoker ROS Constitutional Constitutional: Reports chills, fatigue, malaise and weakness; Denies fever(s) Eyes Eyes: Denies change in vision ENT HEENT: Reports nasal congestion and nasal discharge; Denies ear pain, headache(s) or sore throat Cardiovascular Cardiovascular: Reports dyspnea on exertion, palpitations and rapid heart rate; Denies chest pain, edema, lightheadedness, orthopnea, paroxysmal nocturnal dyspnea or syncope Respiratory/Chest Respiratory/Chest: Reports cough, dyspnea, shortness of breath at rest and shortness of breath with exertion; Denies excessive phlegm production, hemoptysis, productive cough or wheezing Gastrointestinal Gastrointestinal: Denies constipation or diarrhea Genitourinary Genitourinary: Denies burning urination or dysuria Musculoskeletal Musculoskeletal: Denies arthralgias Neurologic Neurologic: Denies confusion, dizziness, focal weakness or numbness Psychiatric Psychiatric: Denies anxiety or depression Vital Signs Vital Signs Vital Signs: 10/09/21 13:57 10/09/21 15:13 10/09/21 16:33 Temperature 97.1 F L Temperature Source Temporal Pulse Rate 137 H 127 H Respiratory Rate 20 H 18 15 Blood Pressure 110/86 H Blood Pressure Mean 94 Pulse Ox 83 87 Oxygen Delivery Method Room Air Nasal Cannula Oxygen Flow Rate (L/min) 4 Weight Weight: 250 lb Body Mass Index (BMI) 39.1 Physical Exam Const alert and oriented x3 General Appearance: cooperative HEENT normocephalic, head/scalp atraumatic and hearing grossly normal bilaterally HEENT Narrative: dry oral mucosa Eyes PERRL, EOMs intact bilaterally and conjunctivae normal Neck no lymphadenopathy and supple Resp Resp Narrative: diminished breath sounds bibasally, no wheezes or crackles. on 4L of oxygen by nasal canula. GI normal to inspection, nondistended, normoactive bowel sounds, soft to palpation, non-tender, non-distended and hepatosplenomegaly Extremity normal to inspection, full ROM and no clubbing, cyanosis or edema Peripheral Pulses: Yes pulses 2+ throughout Skin no rashes or lesions noted Neuro oriented x3, CN's II-XII intact bilaterally and moves all extremities Sensorium / Orientation: awake and alert Psych affect normal Results Lab / Micro Data Result Diagrams: 10/09/21 15:08 10/09/21 15:08 Labs: Laboratory Results - last 24 hr 10/09/21 15:08: WBC 7.6, RBC 5.38, Hgb 15.7, Hct 46.5, MCV 86.4, MCH 29.2, MCHC 33.8, RDW Std Deviation 40.4, RDW Coeff of Eryn 12.8, Plt Count 266, MPV 10.3, Immature Gran % (Auto) 1.600 H, Neut % (Auto) 85.6 H, Lymph % (Auto) 7.6 L, Traill % (Auto) 4.3, Eos % (Auto) 0.4, Baso % (Auto) 0.5, Absolute Neuts (auto) 6.5, Absolute Lymphs (auto) 0.58 L, Nucleated RBC % 0, Differential Comment SCANNED 10/09/21 15:08: Sodium 134 L, Potassium 4.3, Chloride 101, Carbon Dioxide 25.0, Anion Gap 8, BUN 19 H, Creatinine 1.00, Estim Creat Clear Calc 69.77, Est GFR (MDRD) Af Amer 97, Est GFR (MDRD) Non-Af 80, BUN/Creatinine Ratio 19.0, Glucose 110 H, Calcium 8.9, Total Bilirubin 1.30 H, AST 61 H, ALT 59, Alkaline Phosphatase 85, Total Protein 6.8, Albumin 2.2 L, Globulin 4.6 H, Albumin/Globulin Ratio 0.5 L Radiology Impression Chest X-Ray 10/09/21 15:20 IMPRESSION: Interval development of multifocal Covid 19 pneumonia bilaterally. Electronically Signed: Moy Rodriguez MD at 16:10 EST Tel , Service support , Assessment & Plan Assessment/Plan (1) COVID-19: (2) Acute respiratory failure with hypoxia: PLAN: #Acute hypoxic respiratory failure due to covid 19 pneumonia * admit to med surg with telemetry * patient out of window for remdesivir as symptoms started ~ 19 days ago * start on decadron 6mg daily * titrate oxygen to maintain sats >90% * breathing treatment with bronchodilators * DVT prophylaxis: lovenox CODE STATUS: Full code * Patient counseled extensively about different types of CODE STATUS including full code, DNR CCA and DNR CCA. Patient elects to be full code. Total geux-ce-pbrw time 16 minutes. Charges/Coding Visit Charges Inpatient E&M: 43123 Init Hosp L3 Procedures Hospitalists Procedures: 23674 Advncd Care Plan 30 Min
[2021-10-09] MEDS: dexAMETHasone 10 MG/ML Vial IV (17:14)
--- NOTE | 2021-10-09 18:18 | PCS.PANDOC ---
PANDEMIC DOCUMENTATION INITIATED: Date: 05/30/2021 Time: 190
[2021-10-09 18:31] LABS: CPK Total, Creatine Kinase 144 U/L (39-308); LDH 606 U/L (87-241)
[2021-10-09 18:34] LABS: BNP,B-Type NATRIURETIC PEPTIDE 8.7 pg/mL (0-100)
[2021-10-09 18:38] LABS: Fibrinogen 815 mg/dl (203-444)
[2021-10-09] MEDS: 0.9% Normal Saline 1,000 ML 125 ML IV (18:38)
--- NOTE | 2021-10-09 18:47 | NURSING ---
Pt used I.S and peep at this time. This nurse educated pt on importance and why to use it Q1hr 10reps. This nurse also explained importance and reason for laying prone in bed as much as possible during and sitting in chair and moving around during the day. Pt seems to understand.
[2021-10-09 19:22] LABS: Procalcitonin 0.18 ng/mL (0.00-0.09)
[2021-10-09] MEDS: Enoxaparin 30 MG/0.3 ML Syringe SC (21:41)
[2021-10-09 22:36] LABS: Bedside Glucose 119 mg/dL (70-110)
[2021-10-10] VITALS (13 sets, daily range): BP systolic 111–122; BP diastolic 60–72; PULSE 67–92; RESP 16–18; TEMP 36.6–36.9; O2SAT 91–94
[2021-10-10] MEDS: 0.9% Normal Saline 1,000 ML 125 ML IV (02:51)
[2021-10-10 08:26] LABS: Absolute Lymphocyte Count 0.61 X10^3/uL (0.83-4.51); Absolute Neutrophil Count 6.7 X10^3/uL (2.0-7.7); Basophil# 0.01 X10^3/uL; Basophil% 0.1 % (0-1); Hematocrit 41.1 % (40-54); Hemoglobin 14.2 g/dL (13.0-16.5); Lymphocyte # 0.61 X10^3/ul (0.83-4.51); Lymphocyte % 7.9 % (19-41); Mean Corp Hgb Conc 34.5 g/dL (32-36); Mean Corpuscular Volume 86.7 fL (80-94); Mean Platelet Vol. 10.4 fl (6.2-12.0); Monocyte# 0.37 X10^3/uL; Monocyte% 4.8 % (0-10); NRBC Flagged by Analyzer 0 % (0-5); Neutrophil # 6.67 X10^3/uL (2.7-7.7); Platelet Count 262 K/mm3 (150-450); RBC Distribution Width SD 41.1 fl (35.1-43.9); Red Blood Count 4.74 M/mm3 (4.6-6.2); White Blood Count 7.8 K/mm3 (4.4-11.0)
[2021-10-10 08:57] LABS: ALB/GLOB Ratio 0.4 RATIO (0.9-2.4); AST(SGOT) 46 U/L (15-37); Alanine Aminotransfer ALT/SGPT 54 U/L (16-61); Albumin, Serum 1.9 g/dL (3.2-5.0); Alkaline Phosphatase 70 U/L (45-117); Anion Gap 7 (5-15); BUN 16 mg/dL (7-18); BUN/Creat Ratio 20.1 RATIO (10-20); Calcium,Total 8.2 mg/dL (8.5-10.1); Chloride 105 mmol/L (98-107); EST Glomerular Filtration Rate 104 mL/min (>60); Est Glom Filt Rate - Afr Amer 126 mL/min (>60); Estimated Creatinine Clearance 87.22 ml/min; Globulin 4.3 g/dL (2.2-4.2); Glucose 126 mg/dL (74-106); Potassium 4.4 mmol/L (3.5-5.1); Protein, Total 6.2 g/dL (6.4-8.2); Sodium Level 137 mmol/L (136-145)
--- NOTE | 2021-10-10 10:03 | PN.HOSP_ITS ---
Subjective Subjective Patient seen and examined. He does say he feels better today. He is however up to 10 L of oxygen. He is still coughing but has no other complaints. Review of systems otherwise negative. Objective Data Objective Data Vital Signs: Vital Signs Temp Pulse Resp BP Pulse Ox 97.9 F 84 16 121/60 H 92 10/10/21 03:39 10/10/21 03:39 10/10/21 03:39 10/10/21 03:39 10/10/21 07:07 Oxygen Flow Rate (L/min) 10 Oxygen Delivery Method Nasal Cannula Weight: 210 lb 5.136 oz Body Mass Index (BMI) 32.9 Intake & Output: Intake and Output for Last 24 Hours 10/08/21 10/09/21 10/10/21 23:59 23:59 23:59 Intake Total 1000 / 1400 1700 / 1700 Output Total 775 / 775 Balance 1000 / 1025 925 / 925 Lab / Micro Data Result Diagrams: 10/10/21 08:03 10/10/21 08:03 Labs: Laboratory Results - last 24 hr 10/09/21 15:08: WBC 7.6, RBC 5.38, Hgb 15.7, Hct 46.5, MCV 86.4, MCH 29.2, MCHC 33.8, RDW Std Deviation 40.4, RDW Coeff of Eryn 12.8, Plt Count 266, MPV 10.3, Immature Gran % (Auto) 1.600 H, Neut % (Auto) 85.6 H, Lymph % (Auto) 7.6 L, Glenn % (Auto) 4.3, Eos % (Auto) 0.4, Baso % (Auto) 0.5, Absolute Neuts (auto) 6.5, Absolute Lymphs (auto) 0.58 L, Nucleated RBC % 0, Differential Comment SCANNED 10/09/21 15:08: Sodium 134 L, Potassium 4.3, Chloride 101, Carbon Dioxide 25.0, Anion Gap 8, BUN 19 H, Creatinine 1.00, Estim Creat Clear Calc 69.77, Est GFR (M DRD) Af Amer 97, Est GFR (MDRD) Non-Af 80, BUN/Creatinine Ratio 19.0, Glucose 110 H, Calcium 8.9, Total Bilirubin 1.30 H, AST 61 H, ALT 59, Alkaline Phosphatase 85, Total Protein 6.8, Albumin 2.2 L, Globulin 4.6 H, Albumin/Globulin Ratio 0.5 L 10/09/21 15:08: Fibrinogen 815 H 10/09/21 15:08: Lactate Dehydrogenase 606 H, Total Creatine Kinase 144, C-React Prot Ext Range 101.00 H 10/09/21 15:08: B-Natriuretic Peptide 8.7 10/09/21 18:26: Procalcitonin 0.18 H 10/09/21 21:38: POC Glucose 119 H 10/10/21 08:03: WBC 7.8, RBC 4.74, Hgb 14.2, Hct 41.1, MCV 86.7, MCH 30.0, MCHC 34.5, RDW Std Deviation 41.1, RDW Coeff of Eryn 13.0, Plt Count 262, MPV 10.4, Immature Gran % (Auto) 1.200 H, Neut % (Auto) 86.0 H, Lymph % (Auto) 7.9 L, Glenn % (Auto) 4.8, Eos % (Auto) 0.0, Baso % (Auto) 0.1, Absolute Neuts (auto) 6.7, Absolute Lymphs (auto) 0.61 L, Nucleated RBC % 0 10/10/21 08:03: Sodium 137, Potassium 4.4, Chloride 105, Carbon Dioxide 25.0, Anion Gap 7, BUN 16, Creatinine 0.80, Estim Creat Clear Calc 87.22, Est GFR (MDRD) Af Amer 126, Est GFR (MDRD) Non-Af 104, BUN/Creatinine Ratio 20.1 H, Glucose 126 H, Calcium 8.2 L, Total Bilirubin 0.80, AST 46 H, ALT 54, Alkaline Phosphatase 70, Total Protein 6.2 L, Albumin 1.9 L, Globulin 4.3 H, Albumin/Globulin Ratio 0.4 L Radiography Diagnostic Testing: Radiology Impression Chest X-Ray 10/09/21 15:20 IMPRESSION: Interval development of multifocal Covid 19 pneumonia bilaterally. Electronically Signed: Moy Rodriguez MD at 16:10 EST Tel , Service support , Physical Exam Const alert, oriented x3 and no apparent distress General Appearance: cooperative Exam Limitations: no limitations HEENT normocephalic, head/scalp atraumatic and hearing grossly normal bilaterally Head and Scalp: normocephalic Eyes PERRL, EOMs intact bilaterally and conjunctivae normal Neck no lymphadenopathy and supple Resp Resp Narrative: diminished breath sounds bibasally, no wheezes or crackles. on 10L of oxygen by nasal canula. Cardio regular rate, regular rhythm, S1 normal heart sound and S2 normal heart sound GI normal to inspection, nondistended, normoactive bowel sounds, soft to palpation, non-tender, non-distended and hepatosplenomegaly Extremity normal to inspection, full ROM and no clubbing, cyanosis or edema Peripheral Pulses: Yes pulses 2+ throughout Skin no rashes or lesions noted Neuro oriented x3, CN's II-XII intact bilaterally and moves all extremities Sensorium / Orientation: awake and alert Psych affect normal Assessment & Plan Assessment/Plan (1) COVID-19: (2) Acute respiratory failure with hypoxia: PLAN: #Acute hypoxic respiratory failure due to covid 19 pneumonia * now on 10L of oxygen, up from 4L on admission * patient out of window for remdesivir as symptoms started ~ 19 days ago * start on decadron 6mg daily * titrate oxygen to maintain sats >90% * breathing treatment with bronchodilators * will consult pulmonology and ID in light of increased oxygen requirements. Patient may benefit from baricitinib; will defer to ID. * check urine for strep and legionella * DVT prophylaxis: lovenox CODE STATUS: Full code * Charges/Coding Visit Charges Inpatient E&M: 94588 Subs Hosp L3
--- NOTE | 2021-10-10 10:50 | CASEMGMT ---
Addendum entered by Lilliana Rizo 10/10/21 11:20: Looked up pt insurance card on website, did not find [facility] as a provider. Earnest and Junie, however did show up. Original Note: CHLOÉ COLLAZO Assessment: Face to Face with pt for initial transition planning/care coordination assessment. CHLOÉ COLLAZO introduced self and role at [facility], pt voices understanding and consents to assessment. Pt is A/O x4 and answers all questions appropriately at this time. Pt sitting up in bed with O2 on in no distress watching tv. Care providers, pharmacy, and demographics verified/updated. Admitting Dx: acute hypoxic resp failure d/t COVID 19 PCP:Pt denies but was given a list of local healthcare providers in ER. Specialists: Pt denies. Preferred Pharmacy: [facility] Insurance: One Share Prescription Benefit: yes LW/HPOA: Pt denies having a LW/DPOA and denies need for info regarding AD. LNOK: Amber Aguilera, Living Arrangements: Pt lives with in a two story house with 3 steps to enter. Pt reports he was I in ADL's and denies concerns at home. Transportation: Pt drives self and denies concerns with transportation. DME/HHC/SNF: Pt has a walker at home, but does not use. Denies hx of HHC or SNF stays. Pt was first tested for COVID at [facility]. His is also hospitalized with same. Pt has family who can provide him with groceries and supplies while he is in quarantine. Pt states should he need home O2, he would like the same O2 company his has if it is in network with his insurance. She has [facility]. CHLOÉ COLLAZO to check on in network DME. Otherwise, pt states he has no preference. Pt states no concerns with going home at time of dc. Pt states no further concerns/needs. CM to follow. Advised pt to ask CM if any further question/concerns/needs arise, voices understanding. Pt Goal: Home Plan: Home
[2021-10-10] MEDS: 0.9% Saline Lock 10 ML Syringe IV (12:23)
[2021-10-10] MEDS: dexAMETHasone 10 MG/ML Vial 6 MG IV (12:24)
[2021-10-10] MEDS: Enoxaparin 30 MG/0.3 ML Syringe SC ×2 (12:25→20:03)
--- NOTE | 2021-10-10 13:06 | CON.PCM.ID_ITS ---
Assessment & Plan Assessment/Plan (1) COVID-19: PLAN: Sx started around 09/20. Unvaccinated. Likely can stop isolation soon. On dex. Worsening O2. Reviewed EUA and risks/benefits of baricitinib, he is going to think about it. Emphasized time-limited nature of its usefulness. Will follow, thank you (2) Hypoxia: HPI Consult Data Date of Consult: 10/10/21 HPI Narrative HPI Narrative: AVILA OLIVER, is a 66 M who presented 10/09 to ED with worsening dyspnea, O2. Sick since around 09/20, unvaccinated. C/o fever, chills, cough with minimal yellow sputum (improving). also sick and admitted to hospital. Tested (+) 09/27. Now admitted with worsening O2. Feeling better. Full ROS performed and neg except as noted above. [facility], [facility] Medical History GERD (gastroesophageal reflux disease) Home Medications cyclobenzaprine 10 mg PO TID PRN #20 tablet 09/29/21 [Rx Last Taken Unknown] promethazine-DM 5 ml PO Q6H PRN #118 ml 09/29/21 [Rx Last Taken Unknown] ondansetron 4 mg PO Q8H PRN #10 tab 10/03/21 [Rx Last Taken Unknown] dexamethasone [Decadron] 6 mg PO DAILY 10 Days #10 tab 10/09/21 [Rx Last Taken Unknown] Allergy/AdvReac Type Severity Reaction Status Date / Time No Known Allergies Allergy Verified 10/09/21 13:57 Social History Smoking Status: Never smoker Physical Exam Const alert, oriented x3 and no apparent distress General Appearance: cooperative Exam Limitations: no limitations HEENT normocephalic and head/scalp atraumatic Eyes PERRL and EOMs intact bilaterally Neck supple and No nodes Resp Auscultation: diminished lung sounds Cardio regular rate and regular rhythm GI normal to inspection, nondistended, normoactive bowel sounds Extremity no clubbing, cyanosis or edema Skin no rashes or lesions noted Neuro CN's II-XII intact bilaterally Lab / Micro Data Result Diagrams: 10/10/21 08:03 10/10/21 08:03 Labs: Laboratory Results - last 24 hr 10/09/21 15:08: WBC 7.6, RBC 5.38, Hgb 15.7, Hct 46.5, MCV 86.4, MCH 29.2, MCHC 33.8, RDW Std Deviation 40.4, RDW Coeff of Eryn 12.8, Plt Count 266, MPV 10.3, Immature Gran % (Auto) 1.600 H, Neut % (Auto) 85.6 H, Lymph % (Auto) 7.6 L, [place] % (Auto) 4.3, Eos % (Auto) 0.4, Baso % (Auto) 0.5, Absolute Neuts (auto) 6.5, Absolute Lymphs (auto) 0.58 L, Nucleated RBC % 0, Differential Comment SCANNED 10/09/21 15:08: Sodium 134 L, Potassium 4.3, Chloride 101, Carbon Dioxide 25.0, Anion Gap 8, BUN 19 H, Creatinine 1.00, Estim Creat Clear Calc 69.77, Est GFR (MDRD) Af Amer 97, Est GFR (MDRD) Non-Af 80, BUN/Creatinine Ratio 19.0, Glucose 110 H, Calcium 8.9, Total Bilirubin 1.30 H, AST 61 H, ALT 59, Alkaline Phosphatase 85, Total Protein 6.8, Albumin 2.2 L, Globulin 4.6 H, Albumin/Globulin Ratio 0.5 L 10/09/21 15:08: Fibrinogen 815 H 10/09/21 15:08: Lactate Dehydrogenase 606 H, Total Creatine Kinase 144, C-React Prot Ext Range 101.00 H 10/09/21 15:08: B-Natriuretic Peptide 8.7 10/09/21 18:26: Procalcitonin 0.18 H 10/09/21 21:38: POC Glucose 119 H 10/10/21 08:03: WBC 7.8, RBC 4.74, Hgb 14.2, Hct 41.1, MCV 86.7, MCH 30.0, MCHC 34.5, RDW Std Deviation 41.1, RDW Coeff of Eryn 13.0, Plt Count 262, MPV 10.4, Immature Gran % (Auto) 1.200 H, Neut % (Auto) 86.0 H, Lymph % (Auto) 7.9 L, [place] % (Auto) 4.8, Eos % (Auto) 0.0, Baso % (Auto) 0.1, Absolute Neuts (auto) 6.7, Absolute Lymphs (auto) 0.61 L, Nucleated RBC % 0 10/10/21 08:03: Sodium 137, Potassium 4.4, Chloride 105, Carbon Dioxide 25.0, Anion Gap 7, BUN 16, Creatinine 0.80, Estim Creat Clear Calc 87.22, Est GFR (MDRD) Af Amer 126, Est GFR (MDRD) Non-Af 104, BUN/Creatinine Ratio 20.1 H, Glucose 126 H, Calcium 8.2 L, Total Bilirubin 0.80, AST 46 H, ALT 54, Alkaline Phosphatase 70, Total Protein 6.2 L, Albumin 1.9 L, Globulin 4.3 H, Albumin/Glob ulin Ratio 0.4 L Radiology Impression Chest X-Ray 10/09/21 15:20 IMPRESSION: Interval development of multifocal Covid 19 pneumonia bilaterally. Electronically Signed: Moy Rodriguez MD at 16:10 EST Tel , Service support ,
--- NOTE | 2021-10-10 13:20 | CON.PCM.CC_ITS ---
Assessment & Plan Assessment/Plan (1) COVID-19: (2) Acute respiratory failure with hypoxia: PLAN: RECOMMENDATIONS: 1. Wean supplemental oxygen to maintain saturations at or above 90%. 2. Patient refused baricitinib. 3. Continue Decadron to complete 10 days of therapy. 4. Check D-dimer. If elevated, obtain CTA chest. 5. Continue Lovenox as ordered for now. 6. Encourage incentive spirometer use and mobilize patient as tolerated. IMPRESSIONS: 1. Acute hypoxemic respiratory failure secondary to COVID-19 pneumonia The patient was admitted to the hospital on October 09 with worsening dyspnea in the setting of COVID-19. He was not deemed to be a candidate for remdesivir given delayed presentation. Therefore, he was started on Decadron and Lovenox. Following evaluation by infectious diseases, the patient refused baricitinib. For now, I would recommend obtaining a D-dimer, and if elevated, obtain CTA chest. Continue to wean supplemental oxygen to maintain saturations at or above 90%. Encourage incentive spirometer use and mobilize patient as tolerated. This note was generated with [employer] dictation software. It may contain incorrect words, spelling, and punctuation that were not noted in checking the note before signing. HPI Consult Data Date of Consult: 10/11/21 HPI Narrative Reason for Consultation: Acute hypoxemic respiratory failure secondary to COVID- 19 pneumonia HPI Narrative: The patient is a 66-year-old male, with a history as outlined below, who presented to the emergency department on October 09 with worsening dyspnea and upper respiratory symptoms including nasal congestion and rhinorrhea. The patient also had some associated nausea and vomiting. The patient had previously tested positive for COVID-19 on September 27. The patient is currently un vaccinated. On presentation to the emergency department, the patient was noted to be afebrile but was tachycardic and initially saturating 91% on room air. Initial laboratory evaluation revealed no evidence of a leukocytosis. Chemistry profile was largely unrevealing. CRP was elevated at 101. The patient was placed on Decadron and and Lovenox. He was subsequently admitted to the medical surgical floor for further management. The patient was evaluated by infectious diseases and apparently refused baricitinib. [facility] Medical History GERD (gastroesophageal reflux disease) Home Medications cyclobenzaprine 10 mg PO TID PRN #20 tablet 09/29/21 [Rx Last Taken Unknown] promethazine-DM 5 ml PO Q6H PRN #118 ml 09/29/21 [Rx Last Taken Unknown] ondansetron 4 mg PO Q8H PRN #10 tab 10/03/21 [Rx Last Taken Unknown] dexamethasone [Decadron] 6 mg PO DAILY 10 Days #10 tab 10/09/21 [Rx Last Taken Unknown] Allergy/AdvReac Type Severity Reaction Status Date / Time No Known Allergies Allergy Verified 10/09/21 13:57 Social History Smoking Status: Never smoker ROS Constitutional Constitutional: Reports fatigue, headache(s) and malaise Eyes Eyes: Denies blurry vision or change in vision ENT HEENT: Reports nasal congestion and nasal discharge Cardiovascular Cardiovascular: Denies chest pain or dizziness Respiratory/Chest Respiratory/Chest: Reports cough and dyspnea Gastrointestinal Gastrointestinal: Denies abdominal pain, diarrhea, nausea or vomiting Genitourinary Genitourinary: Denies difficulty urinating Musculoskeletal Musculoskeletal: Denies arthralgias or back pain Integumentary Integumentary: Denies lesions, rash or skin ulcer Neurologic Neurologic: Denies abnormal gait or abnormal speech Psychiatric Psychiatric: Denies anxiety or depression Endocrine Endocrinology: Reports fatigue Hematologic/Lymphatic Hematologic/Lymphatic: Denies easy bleeding or easy bruising Physical Exam Const alert and no apparent distress Constitutional Narrative: Sitting in bedside recliner. General Appearance: cooperative Nutritional Appearance: obese HEENT normocephalic, head/scalp atraumatic and moist oral mucous membranes Eyes PERRL, EOMs intact bilaterally and conjunctivae normal Neck supple General: trachea midline Chest inspection of chest normal Resp Auscultation: diminished lung sounds Cardio regular rate and regular rhythm GI normal to inspection, nondistended, normoactive bowel sounds Extremity no clubbing, cyanosis or edema Skin no rashes or lesions noted Neuro CN's II-XII intact bilaterally, moves all extremities and no focal motor deficits Psych cooperative and affect normal Lab / Micro Data Result Diagrams: 10/10/21 08:03 10/10/21 08:03 Labs: Laboratory Results - last 24 hr 10/09/21 15:08: WBC 7.6, RBC 5.38, Hgb 15.7, Hct 46.5, MCV 86.4, MCH 29.2, MCHC 33.8, RDW Std Deviation 40.4, RDW Coeff of Eryn 12.8, Plt Count 266, MPV 10.3, Immature Gran % (Auto) 1.600 H, Neut % (Auto) 85.6 H, Lymph % (Auto) 7.6 L, [place] % (Auto) 4.3, Eos % (Auto) 0.4, Baso % (Auto) 0.5, Absolute Neuts (auto) 6.5, Absolute Lymphs (auto) 0.58 L, Nucleated RBC % 0, Differential Comment SCANNED 10/09/21 15:08: Sodium 134 L, Potassium 4.3, Chloride 101, Carbon Dioxide 25.0, Anion Gap 8, BUN 19 H, Creatinine 1.00, Estim Creat Clear Calc 69.77, Est GFR (MDRD) Af Amer 97, Est GFR (MDRD) Non-Af 80, BUN/Creatinine Ratio 19.0, Glucose 110 H, Calcium 8.9, Total Bilirubin 1.30 H, AST 61 H, ALT 59, Alkaline Phos phatase 85, Total Protein 6.8, Albumin 2.2 L, Globulin 4.6 H, Albumin/Globulin Ratio 0.5 L 10/09/21 15:08: Fibrinogen 815 H 10/09/21 15:08: Lactate Dehydrogenase 606 H, Total Creatine Kinase 144, C-React Prot Ext Range 101.00 H 10/09/21 15:08: B-Natriuretic Peptide 8.7 10/09/21 18:26: Procalcitonin 0.18 H 10/09/21 21:38: POC Glucose 119 H 10/10/21 08:03: WBC 7.8, RBC 4.74, Hgb 14.2, Hct 41.1, MCV 86.7, MCH 30.0, MCHC 34.5, RDW Std Deviation 41.1, RDW Coeff of Eryn 13.0, Plt Count 262, MPV 10.4, Immature Gran % (Auto) 1.200 H, Neut % (Auto) 86.0 H, Lymph % (Auto) 7.9 L, [place] % (Auto) 4.8, Eos % (Auto) 0.0, Baso % (Auto) 0.1, Absolute Neuts (auto) 6.7, Absolute Lymphs (auto) 0.61 L, Nucleated RBC % 0 10/10/21 08:03: Sodium 137, Potassium 4.4, Chloride 105, Carbon Dioxide 25.0, Anion Gap 7, BUN 16, Creatinine 0.80, Estim Creat Clear Calc 87.22, Est GFR (M DRD) Af Amer 126, Est GFR (MDRD) Non-Af 104, BUN/Creatinine Ratio 20.1 H, Glucose 126 H, Calcium 8.2 L, Total Bilirubin 0.80, AST 46 H, ALT 54, Alkaline Phosphatase 70, Total Protein 6.2 L, Albumin 1.9 L, Globulin 4.3 H, Albumi n/Globulin Ratio 0.4 L Radiology Impression Chest X-Ray 10/09/21 15:20 IMPRESSION: Interval development of multifocal Covid 19 pneumonia bilaterally. Electronically Signed: Moy Rodriguez MD at 16:10 EST Tel , Service support , Charges/Coding Visit Charges Inpatient E&M: 43779 Init Hosp L3
[2021-10-10 14:42] LABS: D-Dimer Quantitative (DVT/PE) 3.09 FEU/ug/m (0.27-0.49)
[2021-10-11] VITALS (14 sets, daily range): BP systolic 108–144; BP diastolic 65–82; PULSE 59–100; RESP 16–18; TEMP 36.7–37; O2SAT 92–95
--- NOTE | 2021-10-11 07:24 | PN.CC_ITS ---
Assessment & Plan Assessment/Plan (1) COVID-19: (2) Acute respiratory failure with hypoxia: PLAN: RECOMMENDATIONS: 1. Wean supplemental oxygen to maintain saturations at or above 90%. 2. Continue Decadron to complete 10 days of therapy. 3. Continue Lovenox as ordered for now. 4. Encourage incentive spirometer use and mobilize patient as tolerated. 5. Awake prone positioning was encouraged. IMPRESSIONS: 1. Acute hypoxemic respiratory failure secondary to COVID-19 pneumonia The patient was admitted to the hospital on October 09 with worsening dyspnea in the setting of COVID-19. He was not deemed to be a candidate for remdesivir given delayed presentation. Therefore, he was started on Decadron and Lovenox. Following evaluation by infectious diseases, the patient refused baricitinib. Although the patient had an elevated D-dimer, subsequent CTA chest was nondiagnostic for PE due to motion artifact and suboptimal contrast bolus. Therefore, if the patient's oxygenation status were to worsen precipitously, recommend transitioning him to therapeutic Lovenox. Continue to wean supplemental oxygen to maintain saturations at or above 90%. Encourage incentive spirometer use and mobilize patient as tolerated. This note was generated with [employer] dictation software. It may contain incorrect words, spelling, and punctuation that were not noted in checking the note before signing. Subjective Subjective The patient was seen and examined at the bedside this morning. Events from the last 24 hours have been reviewed. The patient is currently afebrile, hemodynamically stable and maintaining appropriate oxygen saturations on 10 L/min via nasal cannula. The patient is currently documented to be overall net +3 L for the hospitalization. He remains on Decadron and prophylactic Lovenox. D-dimer yesterday was elevated at 3.09. However, CTA chest obtained this morning was nondiagnostic for PE due to suboptimal contrast bolus. Objective Data Objective Data The patient's most recent lab work, culture data and imaging studies have all been personally reviewed. Coronavirus PCR was positive on September 29. Vital Signs: Vital Signs Temp Pulse Resp BP Pulse Ox 98.0 F 59 L 16 125/82 H 95 10/11/21 02:01 10/11/21 04:06 10/11/21 02:01 10/11/21 02:01 10/11/21 05:49 Oxygen Flow Rate (L/min) 10 Oxygen Delivery Method Nasal Cannula Weight: 95.4 kg Body Mass Index (BMI) 32.9 Intake & Output: Intake and Output for Last 24 Hours 10/09/21 10/10/21 10/11/21 23:59 23:59 23:59 Intake Total 1000 / 1400 3600.00 / 3600.00 200 / 200 Output Total 1225 / 1625 600 / 600 Balance 1000 / 1025 2375.00 / 1975.00 -400 / -400 Lab / Micro Data Attestation: I reviewed the patient's lab results. Result Diagrams: 10/12/21 06:45 10/12/21 06:45 Labs: Laboratory Results - last 24 hr 10/10/21 08:03: WBC 7.8, RBC 4.74, Hgb 14.2, Hct 41.1, MCV 86.7, MCH 30.0, MCHC 34.5, RDW Std Deviation 41.1, RDW Coeff of Eryn 13.0, Plt Count 262, MPV 10.4, Immature Gran % (Auto) 1.200 H, Neut % (Auto) 86.0 H, Lymph % (Auto) 7.9 L, [place] % (Auto) 4.8, Eos % (Auto) 0.0, Baso % (Auto) 0.1, Absolute Neuts (auto) 6.7, Absolute Lymphs (auto) 0.61 L, Nucleated RBC % 0 10/10/21 08:03: Sodium 137, Potassium 4.4, Chloride 105, Carbon Dioxide 25.0, Anion Gap 7, BUN 16, Creatinine 0.80, Estim Creat Clear Calc 87.22, Est GFR (MDRD) Af Amer 126, Est GFR (MDRD) Non-Af 104, BUN/Creatinine Ratio 20.1 H, Glucose 126 H, Calcium 8.2 L, Total Bilirubin 0.80, AST 46 H, ALT 54, Alkaline Phosphatase 70, Total Protein 6.2 L, Albumin 1.9 L, Globulin 4.3 H, Albumin/Globulin Ratio 0.4 L 10/10/21 13:53: D-Dimer Quant (PE/DVT) 3.09 H* Micro: Microbiology 10/10/21 13:20 Urine, Random Streptococcus pneumoniae Antigen (M - Final 10/10/21 13:20 Urine, Random Legionella Antigen - Final Physical Exam Const alert and no apparent distress General Appearance: cooperative Nutritional Appearance: obese HEENT normocephalic, head/scalp atraumatic and moist oral mucous membranes Eyes PERRL, EOMs intact bilaterally and conjunctivae normal Neck supple General: trachea midline Chest inspection of chest normal Resp Auscultation: diminished lung sounds Cardio regular rate and regular rhythm GI normal to inspection, nondistended, normoactive bowel sounds Extremity no clubbing, cyanosis or edema Skin no rashes or lesions noted Neuro CN's II-XII intact bilaterally, moves all extremities and no focal motor deficits Psych cooperative and affect normal Charges/Coding Visit Charges Inpatient E&M: 85837 Subs Hosp L2
--- NOTE | 2021-10-11 07:25 | CT_ITS ---
HISTORY: Elevated D dimer, COVID. TECHNIQUE: Helically acquired images were obtained of the chest following IV contrast as per pulmonary angiogram protocol with 2D/3D reconstructions. A radiation dose optimization technique was used for this scan. IV Contrast dosage and agent: 100 mL [id number]. Number of images including paperwork: [id number]. COMPARISON: XR 10/09/2021. FINDINGS: LARGE AIRWAYS: Patent. LUNGS: Moderate bilateral groundglass and alveolar opacities with mild septal thickening and peripheral distribution throughout the bilateral lungs. Consolidation most confluent in the lower lobes is cystic change. PLEURA: No pneumothorax or pleural effusion. PULMONARY ARTERIES: Nondiagnostic opacification, also limited by motion artifact. AORTA/GREAT VESSELS: No aortic aneurysm or dissection. HEART AND PERICARDIUM: No cardiomegaly or pericardial effusion. No signs of right heart strain. MEDIASTINUM AND PREM: Scattered small lymph nodes. BONES: Diffuse idiopathic skeletal hyperostosis. UPPER ABDOMEN: Mild hiatal hernia. Hepatic steatosis. CT/CTA Chest W/WO Contrast IMPRESSION: Nondiagnostic examination of the pulmonary arteries due to suboptimal contrast bolus and motion artifact. Cannot exclude pulmonary embolism. If symptomatology persists, either a repeat study or V/Q scan should be considered. Moderate bilateral pneumonia with features of COVID-19 infection. Individualized dose optimization techniques were used for this CT. at 0916 Reported and signed by: Quyen Childress MD Electronically Signed: Quyen Childress MD at 9:15 EST Tel , Service support ,
[2021-10-11 08:01] LABS: Absolute Neutrophil Count 7.9 X10^3/uL (2.0-7.7); Basophil# 0.02 X10^3/uL; Basophil% 0.2 % (0-1); Eosinophil# 0.15 X10^3/uL; Eosinophils% 1.6 % (0-5); Hematocrit 41.8 % (40-54); Hemoglobin 13.9 g/dL (13.0-16.5); Lymphocyte % 9.3 % (19-41); Mean Corp Hgb Conc 33.3 g/dL (32-36); Mean Corpuscular Hgb 29.4 pg (27.0-32.0); Mean Corpuscular Volume 88.6 fL (80-94); Mean Platelet Vol. 10.8 fl (6.2-12.0); Monocyte# 0.52 X10^3/uL; Monocyte% 5.4 % (0-10); NRBC Flagged by Analyzer 0 % (0-5); Neutrophil # 7.93 X10^3/uL (2.7-7.7); Neutrophil % 82.4 % (47-70); Platelet Count 283 K/mm3 (150-450); RBC Distribution Width CV 13.1 % (11.6-14.6); RBC Distribution Width SD 42.5 fl (35.1-43.9); Red Blood Count 4.72 M/mm3 (4.6-6.2); White Blood Count 9.6 K/mm3 (4.4-11.0)
[2021-10-11 08:41] LABS: ALB/GLOB Ratio 0.5 RATIO (0.9-2.4); AST(SGOT) 41 U/L (15-37); Alanine Aminotransfer ALT/SGPT 58 U/L (16-61); Albumin, Serum 1.9 g/dL (3.2-5.0); Alkaline Phosphatase 65 U/L (45-117); Anion Gap 5 (5-15); BUN 15 mg/dL (7-18); BUN/Creat Ratio 19.5 RATIO (10-20); Calcium,Total 8.5 mg/dL (8.5-10.1); Chloride 104 mmol/L (98-107); Creatinine, Serum 0.77 mg/dL (0.70-1.30); EST Glomerular Filtration Rate 108 mL/min (>60); Est Glom Filt Rate - Afr Amer 131 mL/min (>60); Estimated Creatinine Clearance 90.61 ml/min; Globulin 4.2 g/dL (2.2-4.2); Glucose 88 mg/dL (74-106); Potassium 4.3 mmol/L (3.5-5.1); Protein, Total 6.1 g/dL (6.4-8.2); Sodium Level 136 mmol/L (136-145)
[2021-10-11 09:05] LABS: D-Dimer Quantitative (DVT/PE) 2.05 FEU/ug/m (0.27-0.49)
[2021-10-11 09:34] LABS: BNP,B-Type NATRIURETIC PEPTIDE 42.6 pg/mL (0-100)
[2021-10-11] MEDS: Enoxaparin 30 MG/0.3 ML Syringe SC ×2 (09:52→21:12)
--- NOTE | 2021-10-11 10:11 | PN.HOSP_ITS ---
Subjective Subjective Patient seen and examined. He had no active complaints. D dimer was more elevated yesterday, so he had a CTA of the chest today. He is on 12L of oxygen today. Objective Data Objective Data Vital Signs: Vital Signs Temp Pulse Resp BP Pulse Ox 98.4 F 76 18 125/71 H 93 10/11/21 09:35 10/11/21 09:35 10/11/21 09:35 10/11/21 09:35 10/11/21 09:35 Oxygen Flow Rate (L/min) 12 Oxygen Delivery Method High Flow Weight: 210 lb 5.136 oz Body Mass Index (BMI) 32.9 Intake & Output: Intake and Output for Last 24 Hours 10/09/21 10/10/21 10/11/21 23:59 23:59 23:59 Intake Total 1000 / 1400 3600.00 / 3600.00 200 / 200 Output Total 1225 / 1625 600 / 600 Balance 1000 / 1025 2375.00 / 1975.00 -400 / -400 Lab / Micro Data Result Diagrams: 10/11/21 06:35 10/11/21 06:35 Labs: Laboratory Results - last 24 hr 10/10/21 13:53: D-Dimer Quant (PE/DVT) 3.09 H* 10/11/21 06:35: WBC 9.6, RBC 4.72, Hgb 13.9, Hct 41.8, MCV 88.6, MCH 29.4, MCHC 33.3, RDW Std Deviation 42.5, RDW Coeff of Eryn 13.1, Plt Count 283, MPV 10.8, Immature Gran % (Auto) 1.100 H, Neut % (Auto) 82.4 H, Lymph % (Auto) 9.3 L, [place] % (Auto) 5.4, Eos % (Auto) 1.6, Baso % (Auto) 0.2, Absolute Neuts (auto) 7.9 H, Absolute Lymphs (auto) 0.90, Nucleated RBC % 0 10/11/21 06:35: Sodium 136, Potassium 4.3, Chloride 104, Carbon Dioxide 27.0, Anion Gap 5, BUN 15, Creatinine 0.77, Estim Creat Clear Calc 90.61, Est GFR (MDRD) Af Amer 131, Est GFR (MDRD) Non-Af 108, BUN/Creatinine Ratio 19.5, Glucose 88, Calcium 8.5, Total Bilirubin 0.60, AST 41 H, ALT 58, Alkaline Reshma sphatase 65, Total Protein 6.1 L, Albumin 1.9 L, Globulin 4.2, Albumin/Globulin Ratio 0.5 L 10/11/21 06:35: D-Dimer Quant (PE/DVT) 2.05 H* 10/11/21 06:35: B-Natriuretic Peptide 42.6 Micro: Microbiology 10/10/21 13:20 Urine, Random Streptococcus pneumoniae Antigen (M - Final 10/10/21 13:20 Urine, Random Legionella Antigen - Final Radiography Diagnostic Testing: Radiology Impression Chest CTA 10/11/21 07:25 IMPRESSION: Nondiagnostic examination of the pulmonary arteries due to suboptimal contrast bolus and motion artifact. Cannot exclude pulmonary embolism. If symptomatology persists, either a repeat study or V/Q scan should be considered. Moderate bilateral pneumonia with features of COVID-19 infection. Individualized dose optimization techniques were used for this CT. at 0916 Reported and signed by: Quyen Childress MD Electronically Signed: Quyen Childress MD at 9:15 EST Tel , Service support , Physical Exam Const alert, oriented x3 and no apparent distress General Appearance: cooperative Exam Limitations: no limitations HEENT normocephalic, head/scalp atraumatic and hearing grossly normal bilaterally Head and Scalp: normocephalic Eyes PERRL, EOMs intact bilaterally and conjunctivae normal Neck no lymphadenopathy and supple Resp Resp Narrative: diminished breath sounds bibasally, no wheezes or crackles. on 12L of oxygen by nasal canula. Cardio regular rate, regular rhythm, S1 normal heart sound and S2 normal heart sound GI normal to inspection, nondistended, normoactive bowel sounds, soft to palpation, non-tender, non-distended and hepatosplenomegaly Extremity normal to inspection, full ROM and no clubbing, cyanosis or edema Skin no rashes or lesions noted Neuro oriented x3, CN's II-XII intact bilaterally and moves all extremities Sensorium / Orientation: awake and alert Psych affect normal Assessment & Plan Assessment/Plan (1) COVID-19: (2) Acute respiratory failure with hypoxia: PLAN: #Acute hypoxic respiratory failure due to covid 19 pneumonia * now up to 12L of oxygen. * patient out of window for remdesivir * on decadron 6mg daily * titrate oxygen to maintain sats >90% * breathing treatment with bronchodilators * ID and pulmonology on board; ID discussed risk/benefit of baricitinib, patient wants to think about it. * urine for strep and Legionella are negative * #Elevated D dimer * D dimer trended upwards yesterday to 3. * CTA of the chest done was nondiagnostic for PE due to the suboptimal contrast bolus and motion artifact, and moderate bilateral pneumonia with features of covid 19 infection. * DVT prophylaxis: lovenox 30mg bid CODE STATUS: Full code * Charges/Coding Visit Charges Inpatient E&M: 89941 Subs Hosp L3
[2021-10-11] MEDS: 0.9% Saline Lock 10 ML Syringe IV (12:50)
[2021-10-11] MEDS: dexAMETHasone 10 MG/ML Vial 6 MG IV (12:50)
[2021-10-12] VITALS (16 sets, daily range): BP systolic 97–138; BP diastolic 64–77; PULSE 64–116; RESP 16–20; TEMP 36.6–37.2; O2SAT 86–99
[2021-10-12 07:02] LABS: Absolute Lymphocyte Count 0.82 X10^3/uL (0.83-4.51); Absolute Neutrophil Count 5.8 X10^3/uL (2.0-7.7); Basophil# 0.01 X10^3/uL; Basophil% 0.1 % (0-1); Eosinophil# 0.17 X10^3/uL; Eosinophils% 2.3 % (0-5); Hematocrit 42.2 % (40-54); Hemoglobin 13.9 g/dL (13.0-16.5); Lymphocyte # 0.82 X10^3/ul (0.83-4.51); Lymphocyte % 10.9 % (19-41); Mean Corp Hgb Conc 32.9 g/dL (32-36); Mean Corpuscular Hgb 28.8 pg (27.0-32.0); Mean Corpuscular Volume 87.6 fL (80-94); Mean Platelet Vol. 10.3 fl (6.2-12.0); Monocyte# 0.62 X10^3/uL; Monocyte% 8.3 % (0-10); NRBC Flagged by Analyzer 0 % (0-5); Neutrophil % 77.5 % (47-70); Platelet Count 325 K/mm3 (150-450); RBC Distribution Width CV 12.9 % (11.6-14.6); RBC Distribution Width SD 41.3 fl (35.1-43.9); Red Blood Count 4.82 M/mm3 (4.6-6.2); White Blood Count 7.5 K/mm3 (4.4-11.0)
[2021-10-12 07:39] LABS: ALB/GLOB Ratio 0.4 RATIO (0.9-2.4); AST(SGOT) 46 U/L (15-37); Alanine Aminotransfer ALT/SGPT 66 U/L (16-61); Albumin, Serum 1.9 g/dL (3.2-5.0); Alkaline Phosphatase 64 U/L (45-117); Anion Gap 6 (5-15); BUN 13 mg/dL (7-18); BUN/Creat Ratio 15.3 RATIO (10-20); Calcium,Total 8.6 mg/dL (8.5-10.1); Chloride 101 mmol/L (98-107); Creatinine, Serum 0.85 mg/dL (0.70-1.30); EST Glomerular Filtration Rate 97 mL/min (>60); Est Glom Filt Rate - Afr Amer 117 mL/min (>60); Estimated Creatinine Clearance 82.08 ml/min; Globulin 4.6 g/dL (2.2-4.2); Glucose 87 mg/dL (74-106); Potassium 4.2 mmol/L (3.5-5.1); Protein, Total 6.5 g/dL (6.4-8.2); Sodium Level 133 mmol/L (136-145)
--- NOTE | 2021-10-12 08:45 | NURSING ---
Patient is sitting in bed eating breakfast. Oxygen saturations are in the low 80's on 12L. This RN enters room and placed 02 up to 15L. Asked patient to stop eating and asked him to take deep breaths, in nose and out mouth. HR tachy into the 120's at times. 02 saturations remains low in the 80's. RT called to evaluate patient and possibly place on Airvo. Dr. Taylor was in room and aware of same. Will monitor.
[2021-10-12] MEDS: dexAMETHasone 10 MG/ML Vial 6 MG IV (08:46)
[2021-10-12] MEDS: Enoxaparin 30 MG/0.3 ML Syringe SC ×2 (08:46→22:13)
[2021-10-12] MEDS: 0.9% Saline Lock 10 ML Syringe IV ×2 (08:46→22:14)
--- NOTE | 2021-10-12 09:15 | NURSING ---
RT placed patient of Airvo. 02 sats in the mid 90's.
--- NOTE | 2021-10-12 11:26 | PN.HOSP_ITS ---
Subjective Subjective Patient seen and examined. He has no complaints and feels well. His oxygen requirements have increased to 15L of oxygen. He is being transitioned to AirVo. Objective Data Objective Data Vital Signs: Vital Signs Temp Pulse Resp BP Pulse Ox 98.9 F 116 H 20 H 115/64 86 10/12/21 08:41 10/12/21 08:41 10/12/21 08:41 10/12/21 08:41 10/12/21 08:41 Oxygen Flow Rate (L/min) 15 Oxygen Delivery Method High Flow Weight: 210 lb 5.136 oz Body Mass Index (BMI) 32.9 Intake & Output: Intake and Output for Last 24 Hours 10/10/21 10/11/21 10/12/21 23:59 23:59 23:59 Intake Total 3600.00 / 3600.00 1850 / 1850 120 / 120 Output Total 1225 / 1625 1200 / 1200 Balance 2375.00 / 1975.00 650 / 650 120 / 120 Lab / Micro Data Result Diagrams: 10/12/21 06:45 10/12/21 06:45 Labs: Laboratory Results - last 24 hr 10/12/21 06:45: WBC 7.5, RBC 4.82, Hgb 13.9, Hct 42.2, MCV 87.6, MCH 28.8, MCHC 32.9, RDW Std Deviation 41.3, RDW Coeff of Eryn 12.9, Plt Count 325, MPV 10.3, Immature Gran % (Auto) 0.900, Neut % (Auto) 77.5 H, Lymph % (Auto) 10.9 L, [place] % (Auto) 8.3, Eos % (Auto) 2.3, Baso % (Auto) 0.1, Absolute Neuts (auto) 5.8, Absolute Lymphs (auto) 0.82 L, Nucleated RBC % 0 10/12/21 06:45: Sodium 133 L, Potassium 4.2, Chloride 101, Carbon Dioxide 26.0, Anion Gap 6, BUN 13, Creatinine 0.85, Estim Creat Clear Calc 82.08, Est GFR (MDRD) Af Amer 117, Est GFR (MDRD) Non-Af 97, BUN/Creatinine Ratio 15.3, Glucose 87, Calcium 8.6, Total Bilirubin 0.70, AST 46 H, ALT 66 H, Alkaline Phosphatase 64, Total Protein 6.5, Albumin 1.9 L, Globulin 4.6 H, Albumin/Globulin Ratio 0.4 L Micro: Microbiology 10/10/21 13:20 Urine, Random Streptococcus pneumoniae Antigen (M - Final 10/10/21 13:20 Urine, Random Legionella Antigen - Final Physical Exam Const alert, oriented x3 and no apparent distress General Appearance: cooperative Exam Limitations: no limitations HEENT normocephalic, head/scalp atraumatic and hearing grossly normal bilaterally Head and Scalp: normocephalic Eyes PERRL, EOMs intact bilaterally and conjunctivae normal Neck no lymphadenopathy and supple Resp Resp Narrative: diminished breath sounds bibasally, no wheezes or crackles. on 15L of oxygen by nasal canula. Cardio regular rate, regular rhythm, S1 normal heart sound and S2 normal heart sound GI normal to inspection, nondistended, normoactive bowel sounds, soft to palpation, non-tender, non-distended and hepatosplenomegaly Extremity normal to inspection, full ROM and no clubbing, cyanosis or edema Peripheral Pulses: Yes pulses 2+ throughout Skin no rashes or lesions noted Neuro oriented x3, CN's II-XII intact bilaterally and moves all extremities Sensorium / Orientation: awake and alert Psych affect normal Assessment & Plan Assessment/Plan (1) COVID-19: (2) Acute respiratory failure with hypoxia: PLAN: #Acute hypoxic respiratory failure due to covid 19 pneumonia * now up to 15L of oxygen. * patient out of window for remdesivir * on decadron 6mg daily * titrate oxygen to maintain sats >90%; will transition to AirVO due to increased oxygen requirements. * breathing treatment with bronchodilators * ID and pulmonology on board; patient still refuses baricitinib. * urine for strep and Legionella are negative * #Elevated D dimer * CTA of the chest done was nondiagnostic for PE due to the suboptimal contrast bolus and motion artifact, and moderate bilateral pneumonia with features of covid 19 infection. * DVT prophylaxis: lovenox 30mg bid CODE STATUS: Full code * Charges/Coding Visit Charges Inpatient E&M: 12826 Subs Hosp L3
[2021-10-13] VITALS (22 sets, daily range): BP systolic 91–117; BP diastolic 53–65; PULSE 69–109; RESP 18–19; TEMP 36.9–37.6; O2SAT 88–100
[2021-10-13 05:56] LABS: Absolute Lymphocyte Count 0.93 X10^3/uL (0.83-4.51); Absolute Neutrophil Count 5.2 X10^3/uL (2.0-7.7); Basophil# 0.02 X10^3/uL; Basophil% 0.3 % (0-1); Eosinophil# 0.18 X10^3/uL; Eosinophils% 2.6 % (0-5); Hematocrit 42.1 % (40-54); Hemoglobin 13.9 g/dL (13.0-16.5); Lymphocyte # 0.93 X10^3/ul (0.83-4.51); Lymphocyte % 13.3 % (19-41); Mean Corpuscular Hgb 28.8 pg (27.0-32.0); Mean Corpuscular Volume 87.3 fL (80-94); Mean Platelet Vol. 9.9 fl (6.2-12.0); Monocyte# 0.55 X10^3/uL; Monocyte% 7.9 % (0-10); NRBC Flagged by Analyzer 0 % (0-5); Neutrophil # 5.21 X10^3/uL (2.7-7.7); Neutrophil % 74.6 % (47-70); Platelet Count 323 K/mm3 (150-450); RBC Distribution Width CV 12.6 % (11.6-14.6); RBC Distribution Width SD 40.3 fl (35.1-43.9); Red Blood Count 4.82 M/mm3 (4.6-6.2)
[2021-10-13 06:56] LABS: ALB/GLOB Ratio 0.4 RATIO (0.9-2.4); AST(SGOT) 34 U/L (15-37); Alanine Aminotransfer ALT/SGPT 63 U/L (16-61); Albumin, Serum 1.9 g/dL (3.2-5.0); Alkaline Phosphatase 59 U/L (45-117); Anion Gap 5 (5-15); BUN 13 mg/dL (7-18); Calcium,Total 8.8 mg/dL (8.5-10.1); Chloride 102 mmol/L (98-107); Creatinine, Serum 0.76 mg/dL (0.70-1.30); EST Glomerular Filtration Rate 109 mL/min (>60); Est Glom Filt Rate - Afr Amer 132 mL/min (>60); Estimated Creatinine Clearance 91.81 ml/min; Globulin 4.3 g/dL (2.2-4.2); Glucose 94 mg/dL (74-106); Potassium 4.1 mmol/L (3.5-5.1); Protein, Total 6.2 g/dL (6.4-8.2); Sodium Level 134 mmol/L (136-145)
[2021-10-13] MEDS: Enoxaparin 30 MG/0.3 ML Syringe SC (08:43)
[2021-10-13] MEDS: dexAMETHasone 10 MG/ML Vial 6 MG IV (08:44)
[2021-10-13] MEDS: 0.9% Saline Lock 10 ML Syringe IV ×2 (08:44→11:47)
--- NOTE | 2021-10-13 10:45 | PN.HOSP_ITS ---
Subjective Subjective Patient seen and examined. He has no active complaints and feels well. Review of systems is otherwise negative. He is on 60L of oxygen via AirVo and 92% FiO2. Objective Data Objective Data Vital Signs: Vital Signs Temp Pulse Resp BP Pulse Ox 99.1 F 97 18 108/62 95 10/13/21 08:50 10/13/21 08:50 10/13/21 08:50 10/13/21 08:50 10/13/21 10:35 Oxygen Flow Rate (L/min) 60 Oxygen Delivery Method Airvo Weight: 210 lb 5.136 oz Body Mass Index (BMI) 32.9 Intake & Output: Intake and Output for Last 24 Hours 10/11/21 10/12/21 10/13/21 23:59 23:59 23:59 Intake Total 1850 / 1850 770 / 770 Output Total 1200 / 1200 Balance 650 / 650 770 / 770 Lab / Micro Data Result Diagrams: 10/13/21 05:35 10/13/21 05:35 Labs: Laboratory Results - last 24 hr 10/13/21 05:35: WBC 7.0, RBC 4.82, Hgb 13.9, Hct 42.1, MCV 87.3, MCH 28.8, MCHC 33.0, RDW Std Deviation 40.3, RDW Coeff of Eryn 12.6, Plt Count 323, MPV 9.9, Immature Gran % (Auto) 1.300 H, Neut % (Auto) 74.6 H, Lymph % (Auto) 13.3 L, [place] % (Auto) 7.9, Eos % (Auto) 2.6, Baso % (Auto) 0.3, Absolute Neuts (auto) 5.2, Absolute Lymphs (auto) 0.93, Nucleated RBC % 0 10/13/21 05:35: Sodium 134 L, Potassium 4.1, Chloride 102, Carbon Dioxide 27.0, Anion Gap 5, BUN 13, Creatinine 0.76, Estim Creat Clear Calc 91.81, Est GFR (MDRD) Af Amer 132, Est GFR (MDRD) Non-Af 109, BUN/Creatinine Ratio 17.0, Glucose 94, Calcium 8.8, Total Bilirubin 0.70, AST 34, ALT 63 H, Alkaline Phosphatase 59, Total Protein 6.2 L, Albumin 1.9 L, Globulin 4.3 H, Albumin/Globulin Ratio 0.4 L Micro: Microbiology 10/10/21 13:20 Urine, Random Streptococcus pneumoniae Antigen (M - Final 10/10/21 13:20 Urine, Random Legionella Antigen - Final Physical Exam Const alert, oriented x3 and no apparent distress General Appearance: cooperative Exam Limitations: no limitations HEENT normocephalic, head/scalp atraumatic and hearing grossly normal bilaterally Head and Scalp: normocephalic Eyes PERRL, EOMs intact bilaterally and conjunctivae normal Neck no lymphadenopathy and supple Resp Resp Narrative: diminished breath sounds bibasally, no wheezes or crackles. on AirVo. Cardio regular rate, regular rhythm, S1 normal heart sound and S2 normal heart sound GI normal to inspection, nondistended, normoactive bowel sounds, soft to palpation, non-tender, non-distended and hepatosplenomegaly Extremity normal to inspection, full ROM and no clubbing, cyanosis or edema Peripheral Pulses: Yes pulses 2+ throughout Skin no rashes or lesions noted Neuro oriented x3, CN's II-XII intact bilaterally and moves all extremities Sensorium / Orientation: awake and alert Psych affect normal Assessment & Plan Assessment/Plan (1) COVID-19: (2) Acute respiratory failure with hypoxia: PLAN: #Acute hypoxic respiratory failure due to covid 19 pneumonia * now on AirVo * patient out of window for remdesivir * on decadron 6mg daily * titrate oxygen to maintain sats >90%; will transition to AirVO due to incr eased oxygen requirements. * breathing treatment with bronchodilators * ID and pulmonology on board; patient still refuses baricitinib. * urine for strep and Legionella are negative * in positive balance by 4.8L. Will diurese with IV lasix to help maintain euvolemic status * #Elevated D dimer * CTA of the chest done was nondiagnostic for PE due to the suboptimal contrast bolus and motion artifact, and moderate bilateral pneumonia with features of covid 19 infection. * DVT prophylaxis: lovenox 30mg bid CODE STATUS: Full code Charges/Coding Visit Charges Inpatient E&M: 45032 Subs Hosp L3
[2021-10-13] MEDS: Furosemide 40 MG/4 ML Vial IV (11:47)
--- NOTE | 2021-10-13 12:19 | PN.CC_ITS ---
Assessment & Plan Assessment/Plan (1) COVID-19: (2) Acute respiratory failure with hypoxia: PLAN: RECOMMENDATIONS: 1. Continue to wean FiO2 to maintain oxygen saturations at or above 90%. 2. Continue Decadron to complete 10 days of therapy. 3. Given worsening oxygenation status and suboptimal CTA chest, will place the patient on therapeutic Lovenox. 4. Encourage incentive spirometer use and mobilize patient as tolerated. 5. Awake prone positioning was encouraged. 6. Continue attempts at diuresis as tolerated by hemodynamics and renal function. IMPRESSIONS: 1. Acute hypoxemic respiratory failure secondary to COVID-19 pneumonia The patient was admitted to the hospital on October 09 with worsening dyspnea in the setting of COVID-19. He was not deemed to be a candidate for remdesivir given delayed presentation. Therefore, he was started on Decadron and Lovenox. Following evaluation by infectious diseases, the patient refused baricitinib. Although the patient had an elevated D-dimer, subsequent CTA chest was nondiag nostic for PE due to motion artifact and suboptimal contrast bolus. Accordingly, given the patient's worsening oxygenation status, will place him empirically on therapeutic Lovenox. Continue gentle diuresis as tolerated by hemodynamics and renal function. Continue to wean FiO2 for saturations greater than 90%. This note was generated with [employer] dictation software. It may contain incorrect words, spelling, and punctuation that were not noted in checking the note before signing. Subjective Subjective The patient was seen and examined at the bedside this morning. Events from the last 24 hours have been reviewed. The patient is currently afebrile, hemodynamically stable and maintaining appropriate oxygen saturations on Airvo heated high flow with an FiO2 requirement of 93% and flow rate of 60 L/min. The patient is currently documented to be overall net +5.1 L for the hospitalization. The patient remains on Decadron and Lovenox. Creatinine is stable. Objective Data Objective Data The patient's most recent lab work, culture data and imaging studies have all been personally reviewed. Coronavirus PCR was positive on September 29. Vital Signs: Vital Signs Temp Pulse Resp BP Pulse Ox 98.5 F 98 18 106/58 L 93 10/13/21 10:35 10/13/21 10:35 10/13/21 10:35 10/13/21 10:35 10/13/21 10:35 Oxygen Flow Rate (L/min) 60 Oxygen Delivery Method Airvo Weight: 95.4 kg Body Mass Index (BMI) 32.9 Intake & Output: Intake and Output for Last 24 Hours 10/11/21 10/12/21 10/13/21 23:59 23:59 23:59 Intake Total 1850 / 1850 770 / 770 400 / 400 Output Total 1200 / 1200 Balance 650 / 650 770 / 770 400 / 400 Lab / Micro Data Attestation: I reviewed the patient's lab results. Result Diagrams: 10/13/21 05:35 10/13/21 05:35 Labs: Laboratory Results - last 24 hr 10/13/21 05:35: WBC 7.0, RBC 4.82, Hgb 13.9, Hct 42.1, MCV 87.3, MCH 28.8, MCHC 33.0, RDW Std Deviation 40.3, RDW Coeff of Eryn 12.6, Plt Count 323, MPV 9.9, Immature Gran % (Auto) 1.300 H, Neut % (Auto) 74.6 H, Lymph % (Auto) 13.3 L, [place] % (Auto) 7.9, Eos % (Auto) 2.6, Baso % (Auto) 0.3, Absolute Neuts (auto) 5.2, Absolute Lymphs (auto) 0.93, Nucleated RBC % 0 10/13/21 05:35: Sodium 134 L, Potassium 4.1, Chloride 102, Carbon Dioxide 27.0, Anion Gap 5, BUN 13, Creatinine 0.76, Estim Creat Clear Calc 91.81, Est GFR (MDRD) Af Amer 132, Est GFR (MDRD) Non-Af 109, BUN/Creatinine Ratio 17.0, Glucose 94, Calcium 8.8, Total Bilirubin 0.70, AST 34, ALT 63 H, Alkaline Phosphatase 59, Total Protein 6.2 L, Albumin 1.9 L, Globulin 4.3 H, Albumin/Globulin Ratio 0.4 L Micro: Microbiology 10/10/21 13:20 Urine, Random Streptococcus pneumoniae Antigen (M - Final 10/10/21 13:20 Urine, Random Legionella Antigen - Final Physical Exam Const alert and no apparent distress General Appearance: cooperative Nutritional Appearance: obese HEENT normocephalic, head/scalp atraumatic and moist oral mucous membranes Eyes PERRL, EOMs intact bilaterally and conjunctivae normal Neck supple General: trachea midline Chest inspection of chest normal Resp Effort and Inspection: able to speak in complete sentences Auscultation: diminished lung sounds Cardio regular rate and regular rhythm GI normal to inspection, nondistended, normoactive bowel sounds Extremity no clubbing, cyanosis or edema Skin no rashes or lesions noted Neuro CN's II-XII intact bilaterally, moves all extremities and no focal motor deficits Psych cooperative and affect normal Charges/Coding Visit Charges Inpatient E&M: 21396 Subs Hosp L3
[2021-10-13] MEDS: Enoxaparin 100 MG/ML Syringe 90 MG SC (17:36)
[2021-10-14] VITALS (19 sets, daily range): BP systolic 98–108; BP diastolic 62–79; PULSE 69–125; RESP 14–18; TEMP 36.3–37.3; O2SAT 58–98
[2021-10-14 05:21] LABS: Absolute Lymphocyte Count 1.49 X10^3/uL (0.83-4.51); Absolute Neutrophil Count 5.7 X10^3/uL (2.0-7.7); Basophil# 0.05 X10^3/uL; Basophil% 0.6 % (0-1); Eosinophil# 0.16 X10^3/uL; Hemoglobin 14.4 g/dL (13.0-16.5); Lymphocyte # 1.49 X10^3/ul (0.83-4.51); Lymphocyte % 18.3 % (19-41); Mean Corp Hgb Conc 32.7 g/dL (32-36); Mean Corpuscular Hgb 28.9 pg (27.0-32.0); Mean Corpuscular Volume 88.2 fL (80-94); Monocyte# 0.63 X10^3/uL; Monocyte% 7.7 % (0-10); NRBC Flagged by Analyzer 0 % (0-5); Neutrophil # 5.67 X10^3/uL (2.7-7.7); Neutrophil % 69.7 % (47-70); Platelet Count 384 K/mm3 (150-450); RBC Distribution Width CV 12.6 % (11.6-14.6); RBC Distribution Width SD 40.6 fl (35.1-43.9); Red Blood Count 4.99 M/mm3 (4.6-6.2); White Blood Count 8.1 K/mm3 (4.4-11.0)
[2021-10-14] MEDS: Enoxaparin 100 MG/ML Syringe 90 MG SC ×2 (05:52→17:37)
[2021-10-14 05:57] LABS: ALB/GLOB Ratio 0.4 RATIO (0.9-2.4); AST(SGOT) 36 U/L (15-37); Alanine Aminotransfer ALT/SGPT 75 U/L (16-61); Albumin, Serum 2.1 g/dL (3.2-5.0); Alkaline Phosphatase 57 U/L (45-117); Anion Gap 7 (5-15); BUN 14 mg/dL (7-18); BUN/Creat Ratio 14.6 RATIO (10-20); Calcium,Total 9.1 mg/dL (8.5-10.1); Chloride 98 mmol/L (98-107); Creatinine, Serum 0.96 mg/dL (0.70-1.30); EST Glomerular Filtration Rate 84 mL/min (>60); Est Glom Filt Rate - Afr Amer 101 mL/min (>60); Estimated Creatinine Clearance 72.68 ml/min; Globulin 4.8 g/dL (2.2-4.2); Glucose 89 mg/dL (74-106); Potassium 4.1 mmol/L (3.5-5.1); Protein, Total 6.9 g/dL (6.4-8.2); Sodium Level 135 mmol/L (136-145)
--- NOTE | 2021-10-14 07:21 | PCM.PN.INT ---
Assessment & Plan Assessment/Plan (1) COVID-19: (2) Acute respiratory failure with hypoxia: PLAN: RECOMMENDATIONS: 1. Continue to wean FiO2 to maintain oxygen saturations at or above 90%. 2. Continue Decadron to complete 10 days of therapy. 3. Continue therapeutic Lovenox. 4. Encourage incentive spirometer use and mobilize patient as tolerated. 5. Awake prone positioning was encouraged. 6. Continue attempts at diuresis as tolerated by hemodynamics and renal function. IMPRESSIONS: 1. Acute hypoxemic respiratory failure secondary to COVID-19 pneumonia The patient was admitted to the hospital on October 09 with worsening dyspnea in the setting of COVID-19. He was not deemed to be a candidate for remdesivir given delayed presentation. Therefore, he was started on Decadron and Lovenox. Following evaluation by infectious diseases, the patient refused baricitinib. Although the patient had an elevated D-dimer, subsequent CTA chest was nondiagnostic for PE due to motion artifact and suboptimal contrast bolus. Accordingly, given the patient's worsening oxygenation status, he was placed empirically on therapeutic dose Lovenox. Continue gentle diuresis as tolerated by hemodynamics and renal function. Continue to wean FiO2 for saturations greater than 90%. This note was generated with [employer] dictation software. It may contain incorrect words, spelling, and punctuation that were not noted in checking the note before signing. Subjective Subjective The patient was seen and examined at the bedside this morning. Events from the last 24 hours have been reviewed. The patient is currently afebrile, hemodynamically stable and maintaining appropriate oxygen saturations on Airvo heated high flow with an FiO2 requirement of 58% and flow rate of 50 L/min. The patient is documented to be overall net +3.5 L for the hospitalization. The patient remains on Decadron, scheduled IV Lasix and therapeutic Lovenox. Morning labs were unremarkable. Objective Data Objective Data The patient's most recent lab work, culture data and imaging studies have all been personally reviewed. Coronavirus PCR was positive on September 29. Vital Signs: Vital Signs Temp Pulse Resp BP Pulse Ox 99.1 F 80 18 108/70 94 10/14/21 03:40 10/14/21 06:54 10/14/21 03:40 10/14/21 03:40 10/14/21 03:40 Oxygen Flow Rate (L/min) 50 Oxygen Delivery Method Airvo Weight: 95.4 kg Body Mass Index (BMI) 32.9 Intake & Output: Intake and Output for Last 24 Hours 10/12/21 10/13/21 10/14/21 23:59 23:59 23:59 Intake Total 770 / 770 400 / 400 Output Total 1650 / 1650 Balance 770 / 770 -1250 / -1250 Lab / Micro Data Attestation: I reviewed the patient's lab results. Result Diagrams: 10/14/21 04:45 10/14/21 04:45 Labs: Laboratory Results - last 24 hr 10/14/21 04:45: WBC 8.1, RBC 4.99, Hgb 14.4, Hct 44.0, MCV 88.2, MCH 28.9, MCHC 32.7, RDW Std Deviation 40.6, RDW Coeff of Eryn 12.6, Plt Count 384, MPV 10.0, Immature Gran % (Auto) 1.700 H, Neut % (Auto) 69.7, Lymph % (Auto) 18.3 L, [place] % (Auto) 7.7, Eos % (Auto) 2.0, Baso % (Auto) 0.6, Absolute Neuts (auto) 5.7, Absolute Lymphs (auto) 1.49, Nucleated RBC % 0 10/14/21 04:45: Sodium 135 L, Potassium 4.1, Chloride 98, Carbon Dioxide 30.0, Anion Gap 7, BUN 14, Creatinine 0.96, Estim Creat Clear Calc 72.68, Est GFR (MDRD) Af Amer 101, Est GFR (MDRD) Non-Af 84, BUN/Creatinine Ratio 14.6, Glucose 89, Calcium 9.1, Total Bilirubin 0.60, AST 36, ALT 75 H, Alkaline Phosphatase 57, Total Protein 6.9, Albumin 2.1 L, Globulin 4.8 H, Albumin/Globulin Ratio 0.4 L Micro: Microbiology 10/10/21 13:20 Urine, Random Streptococcus pneumoniae Antigen (M - Final 10/10/21 13:20 Urine, Random Legionella Antigen - Final Physical Exam Const alert and no apparent distress Constitutional Narrative: Tolerating Airvo. General Appearance: cooperative Nutritional Appearance: obese HEENT normocephalic, head/scalp atraumatic and moist oral mucous membranes Eyes PERRL, EOMs intact bilaterally and conjunctivae normal Neck supple General: trachea midline Chest inspection of chest normal Resp Effort and Inspection: able to speak in complete sentences Auscultation: diminished lung sounds Cardio regular rate and regular rhythm GI normal to inspection, nondistended, normoactive bowel sounds Extremity no clubbing, cyanosis or edema Skin no rashes or lesions noted Neuro CN's II-XII intact bilaterally, moves all extremities and no focal motor deficits Psych cooperative and affect normal Charges/Coding Visit Charges Inpatient E&M: 05085 Subs Hosp L3
[2021-10-14] MEDS: dexAMETHasone 10 MG/ML Vial 6 MG IV (09:31)
[2021-10-14] MEDS: 0.9% Saline Lock 10 ML Syringe IV (09:32)
--- NOTE | 2021-10-14 12:35 | PN.HOSP_ITS ---
Subjective Subjective Patient seen and examined. He had no complaints. He remains on AirVo. he feels his breathing is improving. REview of systems is otherwise negative. Objective Data Objective Data Vital Signs: Vital Signs Temp Pulse Resp BP Pulse Ox 98.3 F 108 H 18 102/62 58 10/14/21 09:25 10/14/21 09:49 10/14/21 09:25 10/14/21 09:30 10/14/21 09:50 Oxygen Flow Rate (L/min) 50 Oxygen Delivery Method Airvo Weight: 210 lb 5.136 oz Body Mass Index (BMI) 32.9 Intake & Output: Intake and Output for Last 24 Hours 10/12/21 10/13/21 10/14/21 23:59 23:59 23:59 Intake Total 770 / 770 400 / 400 Output Total 1650 / 1650 1800 / 1800 Balance 770 / 770 -1250 / -1250 -1800 / -1800 Lab / Micro Data Result Diagrams: 10/14/21 04:45 10/14/21 04:45 Labs: Laboratory Results - last 24 hr 10/14/21 04:45: WBC 8.1, RBC 4.99, Hgb 14.4, Hct 44.0, MCV 88.2, MCH 28.9, MCHC 32.7, RDW Std Deviation 40.6, RDW Coeff of Eryn 12.6, Plt Count 384, MPV 10.0, Immature Gran % (Auto) 1.700 H, Neut % (Auto) 69.7, Lymph % (Auto) 18.3 L, [place] % (Auto) 7.7, Eos % (Auto) 2.0, Baso % (Auto) 0.6, Absolute Neuts (auto) 5.7, Absolute Lymphs (auto) 1.49, Nucleated RBC % 0 10/14/21 04:45: Sodium 135 L, Potassium 4.1, Chloride 98, Carbon Dioxide 30.0, Anion Gap 7, BUN 14, Creatinine 0.96, Estim Creat Clear Calc 72.68, Est GFR (MDRD) Af Amer 101, Est GFR (MDRD) Non-Af 84, BUN/Creatinine Ratio 14.6, Glucose 89, Calcium 9.1, Total Bilirubin 0.60, AST 36, ALT 75 H, Alkaline Phosphatase 57, Total Protein 6.9, Albumin 2.1 L, Globulin 4.8 H, Albumin/Globulin Ratio 0.4 L Micro: Microbiology 10/10/21 13:20 Urine, Random Streptococcus pneumoniae Antigen (M - Final 10/10/21 13:20 Urine, Random Legionella Antigen - Final Physical Exam Const alert, oriented x3 and no apparent distress General Appearance: cooperative Exam Limitations: no limitations HEENT normocephalic, head/scalp atraumatic and hearing grossly normal bilaterally Head and Scalp: normocephalic Eyes PERRL, EOMs intact bilaterally and conjunctivae normal Neck no lymphadenopathy and supple Resp Resp Narrative: diminished breath sounds bibasally, no wheezes or crackles. on AirVo. Cardio regular rate, regular rhythm, S1 normal heart sound and S2 normal heart sound GI normal to inspection, nondistended, normoactive bowel sounds, soft to palpation, non-tender, non-distended and hepatosplenomegaly Extremity normal to inspection, full ROM and no clubbing, cyanosis or edema Peripheral Pulses: Yes pulses 2+ throughout Skin no rashes or lesions noted Neuro oriented x3, CN's II-XII intact bilaterally and moves all extremities Sensorium / Orientation: awake and alert Psych affect normal Assessment & Plan Assessment/Plan (1) COVID-19: (2) Acute respiratory failure with hypoxia: PLAN: #Acute hypoxic respiratory failure due to covid 19 pneumonia * still on AirVo at 50L/min and FiO2 of 58% * patient out of window for remdesivir * on decadron 6mg daily * titrate oxygen to maintain sats >90%; will transition to AirVO due to increas ed oxygen requirements. * breathing treatment with bronchodilators * ID and pulmonology on board; patient refused baricitinib. * urine for strep and Legionella are negative * in cumulative positive balance by 1.74L. Will diurese with IV lasix to help maintain euvolemic status * #Elevated D dimer * CTA of the chest done was nondiagnostic for PE due to the suboptimal contrast bolus and motion artifact, and moderate bilateral pneumonia with features of covid 19 infection. * on lovenox. * DVT prophylaxis: lovenox 30mg bid CODE STATUS: Full code Charges/Coding Visit Charges Inpatient E&M: 17450 Subs Hosp L2
[2021-10-15] VITALS (21 sets, daily range): BP systolic 102–108; BP diastolic 65–85; PULSE 70–112; RESP 16–20; TEMP 36.4–37.7; O2SAT 92–95
[2021-10-15] MEDS: Enoxaparin 100 MG/ML Syringe 90 MG SC ×2 (05:31→17:00)
[2021-10-15] MEDS: 0.9% Saline Lock 10 ML Syringe IV ×3 (05:32→21:36)
--- NOTE | 2021-10-15 06:56 | PN.CC_ITS ---
Assessment & Plan Assessment/Plan (1) COVID-19: (2) Acute respiratory failure with hypoxia: PLAN: RECOMMENDATIONS: 1. Continue to wean FiO2 to maintain oxygen saturations at or above 90%. 2. Continue Decadron to complete 10 days of therapy. 3. Continue therapeutic Lovenox. 4. Encourage incentive spirometer use and mobilize patient as tolerated. 5. Awake prone positioning was encouraged. 6. Continue attempts at diuresis as tolerated by hemodynamics and renal function. IMPRESSIONS: 1. Acute hypoxemic respiratory failure secondary to COVID-19 pneumonia The patient was admitted to the hospital on October 09 with worsening dyspnea in the setting of COVID-19. He was not deemed to be a candidate for remdesivir given delayed presentation. Therefore, he was started on Decadron and Lovenox. Following evaluation by infectious diseases, the patient refused baricitinib. Although the patient had an elevated D-dimer, subsequent CTA chest was nondiagnostic for PE due to motion artifact and suboptimal contrast bolus. Accordingly, given the patient's worsening oxygenation status, he was placed empirically on therapeutic dose Lovenox. Continue gentle diuresis as tolerated by hemodynamics and renal function. Continue to wean FiO2 for saturations greater than 90%. This note was generated with [employer] dictation software. It may contain incorrect words, spelling, and punctuation that were not noted in checking the note before signing. Subjective Subjective The patient was seen and examined at the bedside this morning. Events from the last 24 hours have been reviewed. The patient is currently afebrile, hemodynamically stable and maintaining appropriate oxygen saturations on Airvo heated high flow with an FiO2 requirement of 60% and flow rate of 50 L/min. The patient is documented to be overall net +1.5 L for the hospitalization. The pat ient remains on Decadron, scheduled IV Lasix and therapeutic Lovenox. He is without any specific complaints this morning. Objective Data Objective Data The patient's most recent lab work, culture data and imaging studies have all been personally reviewed. Coronavirus PCR was positive on September 29. Vital Signs: Vital Signs Temp Pulse Resp BP Pulse Ox 97.6 F L 92 16 108/75 95 10/15/21 04:00 10/15/21 04:08 10/15/21 04:00 10/15/21 04:00 10/15/21 04:00 Oxygen Flow Rate (L/min) 50 Oxygen Delivery Method Airvo Weight: 95.4 kg Body Mass Index (BMI) 32.9 Intake & Output: Intake and Output for Last 24 Hours 10/13/21 10/14/21 10/15/21 23:59 23:59 23:59 Intake Total 400 / 400 320 / 320 Output Total 1650 / 1650 1800 / 1800 550 / 550 Balance -1250 / -1250 -1800 / -1680 -230 / -230 Lab / Micro Data Attestation: I reviewed the patient's lab results. Result Diagrams: 10/14/21 04:45 10/14/21 04:45 Micro: Microbiology 10/10/21 13:20 Urine, Random Streptococcus pneumoniae Antigen (M - Final 10/10/21 13:20 Urine, Random Legionella Antigen - Final Physical Exam Const alert and no apparent distress Constitutional Narrative: Tolerating Airvo. General Appearance: cooperative Nutritional Appearance: obese HEENT normocephalic, head/scalp atraumatic and moist oral mucous membranes Eyes PERRL, EOMs intact bilaterally and conjunctivae normal Neck supple General: trachea midline Chest inspection of chest normal Resp Effort and Inspection: able to speak in complete sentences Auscultation: diminished lung sounds Cardio regular rate and regular rhythm GI normal to inspection, nondistended, normoactive bowel sounds Extremity no clubbing, cyanosis or edema Skin no rashes or lesions noted Neuro CN's II-XII intact bilaterally, moves all extremities and no focal motor deficits Psych cooperative and affect normal Charges/Coding Visit Charges Inpatient E&M: 88368 Subs Hosp L2
[2021-10-15] MEDS: Furosemide 40 MG/4 ML Vial IV (09:07)
[2021-10-15] MEDS: dexAMETHasone 10 MG/ML Vial 6 MG IV (09:07)
[2021-10-15 09:41] LABS: Absolute Lymphocyte Count 1.43 X10^3/uL (0.83-4.51); Absolute Neutrophil Count 4.6 X10^3/uL (2.0-7.7); Basophil# 0.03 X10^3/uL; Basophil% 0.4 % (0-1); Eosinophil# 0.14 X10^3/uL; Hematocrit 42.3 % (40-54); Hemoglobin 14.5 g/dL (13.0-16.5); Lymphocyte # 1.43 X10^3/ul (0.83-4.51); Lymphocyte % 20.9 % (19-41); Mean Corp Hgb Conc 34.3 g/dL (32-36); Mean Corpuscular Hgb 29.8 pg (27.0-32.0); Mean Platelet Vol. 10.2 fl (6.2-12.0); Monocyte# 0.54 X10^3/uL; Monocyte% 7.9 % (0-10); NRBC Flagged by Analyzer 0 % (0-5); Neutrophil # 4.63 X10^3/uL (2.7-7.7); Neutrophil % 67.6 % (47-70); Platelet Count 420 K/mm3 (150-450); RBC Distribution Width CV 12.7 % (11.6-14.6); RBC Distribution Width SD 40.2 fl (35.1-43.9); Red Blood Count 4.86 M/mm3 (4.6-6.2); White Blood Count 6.9 K/mm3 (4.4-11.0)
[2021-10-15 10:01] LABS: Anion Gap 8 (5-15); BUN 18 mg/dL (7-18); BUN/Creat Ratio 20.5 RATIO (10-20); Calcium,Total 9.4 mg/dL (8.5-10.1); Chloride 101 mmol/L (98-107); Creatinine, Serum 0.88 mg/dL (0.70-1.30); EST Glomerular Filtration Rate 93 mL/min (>60); Est Glom Filt Rate - Afr Amer 113 mL/min (>60); Estimated Creatinine Clearance 79.29 ml/min; Glucose 140 mg/dL (74-106); Potassium 3.9 mmol/L (3.5-5.1); Sodium Level 136 mmol/L (136-145)
--- NOTE | 2021-10-15 13:43 | PN.HOSP_ITS ---
Subjective Subjective Patient seen and examined. He feels well and has no active complaints. Review of systems otherwise negative. He was on airflow this morning but was weaned off of AirVo to 11 L of oxygen by nasal cannula. Objective Data Objective Data Vital Signs: Vital Signs Temp Pulse Resp BP Pulse Ox 98.1 F 85 18 104/85 H 92 10/15/21 09:05 10/15/21 10:22 10/15/21 09:05 10/15/21 09:05 10/15/21 13:07 Oxygen Flow Rate (L/min) 11 Oxygen Delivery Method High Flow Weight: 210 lb 5.136 oz Body Mass Index (BMI) 32.9 Intake & Output: Intake and Output for Last 24 Hours 10/13/21 10/14/21 10/15/21 23:59 23:59 23:59 Intake Total 400 / 400 320 / 320 Output Total 1650 / 1650 1800 / 1800 550 / 550 Balance -1250 / -1250 -1800 / -1680 -230 / -230 Lab / Micro Data Result Diagrams: 10/15/21 09:10 10/15/21 09:10 Labs: Laboratory Results - last 24 hr 10/15/21 09:10: WBC 6.9, RBC 4.86, Hgb 14.5, Hct 42.3, MCV 87.0, MCH 29.8, MCHC 34.3, RDW Std Deviation 40.2, RDW Coeff of Eryn 12.7, Plt Count 420, MPV 10.2, Immature Gran % (Auto) 1.200 H, Neut % (Auto) 67.6, Lymph % (Auto) 20.9, [place] % (Auto) 7.9, Eos % (Auto) 2.0, Baso % (Auto) 0.4, Absolute Neuts (auto) 4.6, Absolute Lymphs (auto) 1.43, Nucleated RBC % 0 10/15/21 09:10: Sodium 136, Potassium 3.9, Chloride 101, Carbon Dioxide 27.0, Anion Gap 8, BUN 18, Creatinine 0.88, Estim Creat Clear Calc 79.29, Est GFR (MDR D) Af Amer 113, Est GFR (MDRD) Non-Af 93, BUN/Creatinine Ratio 20.5 H, Glucose 140 H, Calcium 9.4 Micro: Microbiology 10/10/21 13:20 Urine, Random Streptococcus pneumoniae Antigen (M - Final 10/10/21 13:20 Urine, Random Legionella Antigen - Final Physical Exam Const alert, oriented x3 and no apparent distress General Appearance: cooperative Exam Limitations: no limitations HEENT normocephalic, head/scalp atraumatic and hearing grossly normal bilaterally Head and Scalp: normocephalic Eyes PERRL, EOMs intact bilaterally and conjunctivae normal Neck no lymphadenopathy and supple Resp Resp Narrative: diminished breath sounds bibasally, no wheezes or crackles. weaned off AirVo onto oxygen by nasal canula Cardio regular rate, regular rhythm, S1 normal heart sound and S2 normal heart sound GI normal to inspection, nondistended, normoactive bowel sounds, soft to palpation, non-tender, non-distended and hepatosplenomegaly Extremity normal to inspection, full ROM and no clubbing, cyanosis or edema Peripheral Pulses: Yes pulses 2+ throughout Skin no rashes or lesions noted Neuro oriented x3, CN's II-XII intact bilaterally and moves all extremities Sensorium / Orientation: awake and alert Psych affect normal Assessment & Plan Assessment/Plan (1) COVID-19: (2) Acute respiratory failure with hypoxia: PLAN: #Acute hypoxic respiratory failure due to covid 19 pneumonia * off AirVo onto oxygen by nasal canula 11L * patient out of window for remdesivir * on decadron 6mg daily * titrate oxygen to maintain sats >90%; will transition to AirVO due to increased oxygen requirements. * breathing treatment with bronchodilators * ID and pulmonology on board; patient refused baricitinib. * urine for strep and Legionella are negative * in cumulative positive balance by 1.5L. Diurese with IV lasix prn to help maintain euvolemic status * #Elevated D dimer * CTA of the chest done was nondiagnostic for PE due to the suboptimal contrast bolus and motion artifact, and moderate bilateral pneumonia with features of covid 19 infection. * on lovenox. * DVT prophylaxis: lovenox 30mg bid CODE STATUS: Full code Charges/Coding Visit Charges Inpatient E&M: 63529 Subs Hosp L2
[2021-10-16] VITALS (16 sets, daily range): BP systolic 95–117; BP diastolic 67–77; PULSE 63–109; RESP 18–20; TEMP 36.7–37; O2SAT 87–97
[2021-10-16] MEDS: Enoxaparin 100 MG/ML Syringe 90 MG SC ×2 (06:01→17:23)
[2021-10-16 06:58] LABS: Absolute Lymphocyte Count 1.82 X10^3/uL (0.83-4.51); Basophil# 0.04 X10^3/uL; Basophil% 0.5 % (0-1); Eosinophil# 0.14 X10^3/uL; Eosinophils% 1.8 % (0-5); Hematocrit 43.5 % (40-54); Hemoglobin 14.2 g/dL (13.0-16.5); Lymphocyte # 1.82 X10^3/ul (0.83-4.51); Lymphocyte % 23.1 % (19-41); Mean Corp Hgb Conc 32.6 g/dL (32-36); Mean Corpuscular Hgb 29.2 pg (27.0-32.0); Mean Corpuscular Volume 89.3 fL (80-94); Mean Platelet Vol. 10.3 fl (6.2-12.0); Monocyte# 0.77 X10^3/uL; Monocyte% 9.8 % (0-10); NRBC Flagged by Analyzer 0 % (0-5); Neutrophil # 5.01 X10^3/uL (2.7-7.7); Neutrophil % 63.5 % (47-70); Platelet Count 424 K/mm3 (150-450); RBC Distribution Width CV 12.7 % (11.6-14.6); RBC Distribution Width SD 41.5 fl (35.1-43.9); Red Blood Count 4.87 M/mm3 (4.6-6.2); White Blood Count 7.9 K/mm3 (4.4-11.0)
[2021-10-16 07:18] LABS: Anion Gap 6 (5-15); BUN 21 mg/dL (7-18); Calcium,Total 9.1 mg/dL (8.5-10.1); Chloride 97 mmol/L (98-107); EST Glomerular Filtration Rate 80 mL/min (>60); Est Glom Filt Rate - Afr Amer 97 mL/min (>60); Estimated Creatinine Clearance 69.77 ml/min; Glucose 84 mg/dL (74-106); Potassium 4.4 mmol/L (3.5-5.1); Sodium Level 135 mmol/L (136-145)
[2021-10-16] MEDS: 0.9% Saline Lock 10 ML Syringe IV ×2 (08:41→23:31)
[2021-10-16] MEDS: dexAMETHasone 10 MG/ML Vial 6 MG IV (08:41)
[2021-10-16] MEDS: Furosemide 40 MG/4 ML Vial IV (08:41)
--- NOTE | 2021-10-16 09:34 | PN.CC_ITS ---
Assessment & Plan Assessment/Plan (1) COVID-19: (2) Acute respiratory failure with hypoxia: PLAN: RECOMMENDATIONS: 1. Continue to supplemental oxygen to maintain saturations at or above 90%. 2. Continue Decadron to complete 10 days of therapy. 3. Continue therapeutic Lovenox. 4. Encourage incentive spirometer use and mobilize patient as tolerated. 5. Continue attempts at diuresis as tolerated by hemodynamics and renal function. 6. Perform walking oximetry study prior to consideration for discharge home. 7. In light of the patient's improving oxygenation status, will sign off. Please call with any additional questions. IMPRESSIONS: 1. Acute hypoxemic respiratory failure secondary to COVID-19 pneumonia The patient was admitted to the hospital on October 09 with worsening dyspnea in the setting of COVID-19. He was not deemed to be a candidate for remdesivir given delayed presentation. Therefore, he was started on Decadron and Lovenox. Following evaluation by infectious diseases, the patient refused baricitinib. Although the patient had an elevated D-dimer, subsequent CTA chest was nondiagnostic for PE due to motion artifact and suboptimal contrast bolus. Accordingly, he was placed empirically on therapeutic dose Lovenox. Continue gentle diuresis as tolerated by hemodynamics and renal function. Overall, the patient's oxygenation status is improving. Continue to wean supplemental oxygen as tolerated for saturations greater than 90%. This note was generated with [employer] dictation software. It may contain incorrect words, spelling, and punctuation that were not noted in checking the note before signing. Subjective Subjective The patient was seen and examined at the bedside this morning. Events from the last 24 hours have been reviewed. The patient is currently afebrile, hemodynamically stable and maintaining appropriate oxygen saturations on 7 L/min via nasal cannula. The patient is currently documented to be overall net +1.4 L for the hospitalization. The patient remains on Decadron, scheduled Lasix and therapeutic Lovenox. Renal function is stable. Objective Data Objective Data The patient's most recent lab work, culture data and imaging studies have all been personally reviewed. Coronavirus PCR was positive on September 29. Vital Signs: Vital Signs Temp Pulse Resp BP Pulse Ox 98.1 F 96 20 H 106/70 96 10/16/21 08:34 10/16/21 08:34 10/16/21 08:34 10/16/21 08:34 10/16/21 08:34 Oxygen Flow Rate (L/min) 7 Oxygen Delivery Method Nasal Cannula Weight: 95.4 kg Body Mass Index (BMI) 32.9 Intake & Output: Intake and Output for Last 24 Hours 10/14/21 10/15/21 10/16/21 23:59 23:59 23:59 Intake Total 820 / 820 Output Total 1800 / 1800 850 / 850 250 / 250 Balance -1800 / -1680 -30 / -30 -250 / -250 Lab / Micro Data Attestation: I reviewed the patient's lab results. Result Diagrams: 10/16/21 05:38 10/16/21 05:38 Labs: Laboratory Results - last 24 hr 10/15/21 09:10: WBC 6.9, RBC 4.86, Hgb 14.5, Hct 42.3, MCV 87.0, MCH 29.8, MCHC 34.3, RDW Std Deviation 40.2, RDW Coeff of Eryn 12.7, Plt Count 420, MPV 10.2, Immature Gran % (Auto) 1.200 H, Neut % (Auto) 67.6, Lymph % (Auto) 20.9, [place] % (Auto) 7.9, Eos % (Auto) 2.0, Baso % (Auto) 0.4, Absolute Neuts (auto) 4.6, Absolute Lymphs (auto) 1.43, Nucleated RBC % 0 10/15/21 09:10: Sodium 136, Potassium 3.9, Chloride 101, Carbon Dioxide 27.0, Anion Gap 8, BUN 18, Creatinine 0.88, Estim Creat Clear Calc 79.29, Est GFR (MDRD) Af Amer 113, Est GFR (MDRD) Non-Af 93, BUN/Creatinine Ratio 20.5 H, Glucose 140 H, Calcium 9.4 10/16/21 05:38: WBC 7.9, RBC 4.87, Hgb 14.2, Hct 43.5, MCV 89.3, MCH 29.2, MCHC 32.6, RDW Std Deviation 41.5, RDW Coeff of Eryn 12.7, Plt Count 424, MPV 10.3, Immature Gran % (Auto) 1.300 H, Neut % (Auto) 63.5, Lymph % (Auto) 23.1, [place] % (Auto) 9.8, Eos % (Auto) 1.8, Baso % (Auto) 0.5, Absolute Neuts (auto) 5.0, Absolute Lymphs (auto) 1.82, Nucleated RBC % 0 10/16/21 05:38: Sodium 135 L, Potassium 4.4, Chloride 97 L, Carbon Dioxide 32.0, Anion Gap 6, BUN 21 H, Creatinine 1.00, Estim Creat Clear Calc 69.77, Est GFR (MDRD) Af Amer 97, Est GFR (MDRD) Non-Af 80, BUN/Creatinine Ratio 21.0 H, Glucose 84, Calcium 9.1 Micro: Microbiology 10/10/21 13:20 Urine, Random Streptococcus pneumoniae Antigen (M - Final 10/10/21 13:20 Urine, Random Legionella Antigen - Final Physical Exam Const alert and no apparent distress General Appearance: cooperative Nutritional Appearance: obese HEENT normocephalic, head/scalp atraumatic and moist oral mucous membranes Eyes PERRL, EOMs intact bilaterally and conjunctivae normal Neck supple General: trachea midline Chest inspection of chest normal Resp Effort and Inspection: able to speak in complete sentences Auscultation: diminished lung sounds Cardio regular rate and regular rhythm GI normal to inspection, nondistended, normoactive bowel sounds Extremity no clubbing, cyanosis or edema Skin no rashes or lesions noted Neuro CN's II-XII intact bilaterally, moves all extremities and no focal motor deficits Psych cooperative and affect normal Charges/Coding Visit Charges Inpatient E&M: 39387 Subs Hosp L2
--- NOTE | 2021-10-16 10:30 | PN.HOSP_ITS ---
Subjective Subjective Patient seen an examined. He has no active complaints and is feeling much better. Review of systems is otherwise negative. He is on 8L of oxygen by nasal canula now. Objective Data Objective Data Vital Signs: Vital Signs Temp Pulse Resp BP Pulse Ox 98.1 F 96 20 H 106/70 97 10/16/21 08:34 10/16/21 08:34 10/16/21 08:34 10/16/21 08:34 10/16/21 09:41 Oxygen Flow Rate (L/min) 8 Oxygen Delivery Method Nasal Cannula Weight: 210 lb 5.136 oz Body Mass Index (BMI) 32.9 Intake & Output: Intake and Output for Last 24 Hours 10/14/21 10/15/21 10/16/21 23:59 23:59 23:59 Intake Total 820 / 820 Output Total 1800 / 1800 850 / 850 250 / 250 Balance -1800 / -1680 -30 / -30 -250 / -250 Lab / Micro Data Result Diagrams: 10/16/21 05:38 10/16/21 05:38 Labs: Laboratory Results - last 24 hr 10/16/21 05:38: WBC 7.9, RBC 4.87, Hgb 14.2, Hct 43.5, MCV 89.3, MCH 29.2, MCHC 32.6, RDW Std Deviation 41.5, RDW Coeff of Eryn 12.7, Plt Count 424, MPV 10.3, Immature Gran % (Auto) 1.300 H, Neut % (Auto) 63.5, Lymph % (Auto) 23.1, [place] % (Auto) 9.8, Eos % (Auto) 1.8, Baso % (Auto) 0.5, Absolute Neuts (auto) 5.0, Absolute Lymphs (auto) 1.82, Nucleated RBC % 0 10/16/21 05:38: Sodium 135 L, Potassium 4.4, Chloride 97 L, Carbon Dioxide 32.0, Anion Gap 6, BUN 21 H, Creatinine 1.00, Estim Creat Clear Calc 69.77, Est GFR (MDRD) Af Amer 97, Est GFR (MDRD) Non-Af 80, BUN/Creatinine Ratio 21.0 H, Glucose 84, Calcium 9.1 Micro: Microbiology 10/10/21 13:20 Urine, Random Streptococcus pneumoniae Antigen (M - Final 10/10/21 13:20 Urine, Random Legionella Antigen - Final Physical Exam Const alert, oriented x3 and no apparent distress General Appearance: cooperative Exam Limitations: no limitations HEENT normocephalic, head/scalp atraumatic, hearing grossly normal bilaterally and moist oral mucous membranes Head and Scalp: normocephalic Eyes PERRL, EOMs intact bilaterally and conjunctivae normal Neck no lymphadenopathy and supple Resp Resp Narrative: diminished breath sounds bibasally, no wheezes or crackles. on 8L of oxygen by nasal canula Cardio regular rate, regular rhythm, S1 normal heart sound and S2 normal heart sound GI normal to inspection, nondistended, normoactive bowel sounds, soft to palpation, non-tender, non-distended and hepatosplenomegaly Extremity normal to inspection, full ROM and no clubbing, cyanosis or edema Peripheral Pulses: Yes pulses 2+ throughout Skin no rashes or lesions noted Neuro oriented x3, CN's II-XII intact bilaterally and moves all extremities Sensorium / Orientation: awake and alert Psych affect normal Assessment & Plan Assessment/Plan (1) COVID-19: (2) Acute respiratory failure with hypoxia: PLAN: #Acute hypoxic respiratory failure due to covid 19 pneumonia * on 8L of oxygen by nasal canula * patient out of window for remdesivir * on decadron 6mg daily * titrate oxygen to maintain sats >90% * breathing treatment with bronchodilators * ID and pulmonology on board; patient refused baricitinib. * urine for strep and Legionella are negative * in cumulative positive balance by 1.465L. Diurese with IV lasix prn to help maintain euvolemic status * #Elevated D dimer * CTA of the chest done was nondiagnostic for PE due to the suboptimal contrast bolus and motion artifact, and moderate bilateral pneumonia with features of covid 19 infection. * on lovenox. * DVT prophylaxis: lovenox 30mg bid CODE STATUS: Full code Charges/Coding Visit Charges Inpatient E&M: 58051 Subs Hosp L2
[2021-10-17] VITALS (17 sets, daily range): BP systolic 102–118; BP diastolic 66–75; PULSE 67–112; RESP 18–20; TEMP 36.3–36.9; O2SAT 88–94
[2021-10-17] MEDS: Enoxaparin 100 MG/ML Syringe 90 MG SC ×2 (06:16→18:45)
[2021-10-17 06:54] LABS: Absolute Lymphocyte Count 1.96 X10^3/uL (0.83-4.51); Absolute Neutrophil Count 5.3 X10^3/uL (2.0-7.7); Basophil# 0.05 X10^3/uL; Basophil% 0.6 % (0-1); Eosinophil# 0.16 X10^3/uL; Eosinophils% 1.9 % (0-5); Hematocrit 43.5 % (40-54); Hemoglobin 14.5 g/dL (13.0-16.5); Lymphocyte # 1.96 X10^3/ul (0.83-4.51); Lymphocyte % 23.5 % (19-41); Mean Corp Hgb Conc 33.3 g/dL (32-36); Mean Corpuscular Hgb 29.3 pg (27.0-32.0); Mean Corpuscular Volume 87.9 fL (80-94); Mean Platelet Vol. 10.4 fl (6.2-12.0); Monocyte# 0.81 X10^3/uL; Monocyte% 9.7 % (0-10); NRBC Flagged by Analyzer 0 % (0-5); Neutrophil # 5.27 X10^3/uL (2.7-7.7); Neutrophil % 63.3 % (47-70); Platelet Count 434 K/mm3 (150-450); RBC Distribution Width CV 12.6 % (11.6-14.6); RBC Distribution Width SD 40.7 fl (35.1-43.9); Red Blood Count 4.95 M/mm3 (4.6-6.2); White Blood Count 8.3 K/mm3 (4.4-11.0)
[2021-10-17 07:09] LABS: Anion Gap 5 (5-15); BUN 20 mg/dL (7-18); BUN/Creat Ratio 22.9 RATIO (10-20); Calcium,Total 9.5 mg/dL (8.5-10.1); Chloride 99 mmol/L (98-107); Creatinine, Serum 0.87 mg/dL (0.70-1.30); EST Glomerular Filtration Rate 93 mL/min (>60); Est Glom Filt Rate - Afr Amer 113 mL/min (>60); Glucose 84 mg/dL (74-106); Potassium 4.4 mmol/L (3.5-5.1); Sodium Level 135 mmol/L (136-145)
--- NOTE | 2021-10-17 09:50 | NURSING ---
SPO2 STAYED AT 89% W/AMBULATION ON 5L, BUT, HIS HEART RATE WAS IN THE 130S, HIGH 149 BRIEFLY AFTER RESTING. AFTER RESTING FOR A COUPLE MINUTES, SPO2 89-91% AND HR LOW 100S. WILL NOTIFY DR ALFORD
[2021-10-17] MEDS: 0.9% Saline Lock 10 ML Syringe IV (10:15)
[2021-10-17] MEDS: Furosemide 40 MG/4 ML Vial IV (10:15)
[2021-10-17] MEDS: dexAMETHasone 10 MG/ML Vial 6 MG IV (10:16)
--- NOTE | 2021-10-17 17:03 | PN.HOSP_ITS ---
Subjective Subjective Doing well, feels good better than when he came in. He did have an ambulatory pulse ox today of 89% on 5 L however he did have an elevated heart rate at that time Objective Data Objective Data Vital Signs: Vital Signs Temp Pulse Resp BP Pulse Ox 98.5 F 105 H 18 110/75 91 10/17/21 13:29 10/17/21 13:29 10/17/21 13:29 10/17/21 13:29 10/17/21 13:31 Oxygen Flow Rate (L/min) [ 5 AMBULATING with Oxygen #1] Oxygen Flow Rate (L/min) [At 5 REST with Oxygen] Oxygen Flow Rate (L/min) 5 Oxygen Delivery Method Nasal Cannula Weight: 210 lb 5.136 oz Body Mass Index (BMI) 32.9 Intake & Output: Intake and Output for Last 24 Hours 10/16/21 10/17/21 10/18/21 03:59 03:59 03:59 Intake Total 700 / 700 1950 / 1950 300 / 300 Output Total 850 / 850 650 / 650 Balance -150 / -150 1300 / 1300 300 / 300 Medical Nutrition Assessment Dietitian: Malnutrition Criteria Met Start: 10/17/21 11:11 Freq: Status: Active Protocol: Document 10/17/21 11:11 (Rec: 10/17/21 11:11 [id number]) Nutrition Malnutrition Evidence of Malnutrition Exists Yes Malnutrition (moderate): Acute Illness/Injury Evidenced By Suboptimal Energy Intake ( Moderate),Weight Loss (Severe) Intake Problem Inadequate Oral Intake Etiology r/t acute illness, impaired dentition Signs/Symptoms as evidenced by reported decreased appetite, 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 Active Problem Clinical Problem Acute Disease or Injury Related Malnutrition Etiology moderate, acute malnutrition r /t inadequate energy intake w/ acute illness and impaired dentition Signs/Symptoms as evidenced by unintentional wt loss of 34.7#/14% x 2 months, estimated PO intake meeting <75% of estimated energy needs >2 weeks Status Active Problem Recommendation Dietitian Recommendations/Changes continue regular diet as tolerated; pt refusing ensure at this time- will d/c Lab / Micro Data Result Diagrams: 10/17/21 05:46 10/17/21 05:46 Labs: Laboratory Results - last 24 hr 10/17/21 05:46: WBC 8.3, RBC 4.95, Hgb 14.5, Hct 43.5, MCV 87.9, MCH 29.3, MCHC 33.3, RDW Std Deviation 40.7, RDW Coeff of Eryn 12.6, Plt Count 434, MPV 10.4, Immature Gran % (Auto) 1.000 H, Neut % (Auto) 63.3, Lymph % (Auto) 23.5, [place] % (Auto) 9.7, Eos % (Auto) 1.9, Baso % (Auto) 0.6, Absolute Neuts (auto) 5.3, A bsolute Lymphs (auto) 1.96, Nucleated RBC % 0 10/17/21 05:46: Sodium 135 L, Potassium 4.4, Chloride 99, Carbon Dioxide 31.0, Anion Gap 5, BUN 20 H, Creatinine 0.87, Estim Creat Clear Calc 80.20, Est GFR (MDRD) Af Amer 113, Est GFR (MDRD) Non-Af 93, BUN/Creatinine Ratio 22.9 H, Glucose 84, Calcium 9.5 Micro: Microbiology 10/10/21 13:20 Urine, Random Streptococcus pneumoniae Antigen (M - Final 10/10/21 13:20 Urine, Random Legionella Antigen - Final Physical Exam Const alert, oriented x3 and no apparent distress General Appearance: cooperative HEENT normocephalic and moist oral mucous membranes Eyes PERRL, EOMs intact bilaterally and conjunctivae normal Neck supple and no JVD Resp normal respiratory effort, no retractions and no use of accessory muscles Auscultation: diminished lung sounds; Negative for crackles, rales, rhonchi or wheezes Cardio regular rate, regular rhythm, S1 normal heart sound, S2 normal heart sound and no murmurs GI soft to palpation, non-tender and non-distended; Negative for hepatosplenomegaly Extremity no clubbing, cyanosis or edema Skin no rashes or lesions noted Neuro no focal motor deficits and no sensory deficits noted Psych affect normal Appearance: appropriate Assessment & Plan Assessment/Plan (1) COVID-19: (2) Acute respiratory failure with hypoxia: PLAN: #Acute hypoxic respiratory failure due to covid 19 pneumonia * Oxygen requirement is improving * patient out of window for remdesivir * on decadron 6mg daily * titrate oxygen to maintain sats >90% * breathing treatment with bronchodilators * ID and pulmonology on board; patient refused baricitinib. * urine for strep and Legionella are negative * Continue with daily diuresis and monitoring renal function #Elevated D dimer * CTA of the chest done was nondiagnostic for PE due to the suboptimal contrast bolus and motion artifact, and moderate bilateral pneumonia with features of covid 19 infection. * on lovenox. DVT: Lovenox Charges/Coding Visit Charges Inpatient E&M: 48394 Subs Hosp L2
[2021-10-18] VITALS (11 sets, daily range): BP systolic 109–123; BP diastolic 71–84; PULSE 61–102; RESP 18; TEMP 36.5–37.1; O2SAT 85–96
[2021-10-18] MEDS: Enoxaparin 100 MG/ML Syringe 90 MG SC ×2 (06:35→18:00)
--- NOTE | 2021-10-18 06:37 | NURSING ---
went to obtain walking pulse ox this morning, pt was 85% on 5L at rest. pt was just up to bathroom per pt statement.
[2021-10-18 06:41] LABS: Absolute Lymphocyte Count 1.89 X10^3/uL (0.83-4.51); Basophil# 0.07 X10^3/uL; Basophil% 0.7 % (0-1); Hematocrit 43.6 % (40-54); Hemoglobin 14.6 g/dL (13.0-16.5); Lymphocyte # 1.89 X10^3/ul (0.83-4.51); Lymphocyte % 18.5 % (19-41); Mean Corp Hgb Conc 33.5 g/dL (32-36); Mean Corpuscular Hgb 29.6 pg (27.0-32.0); Mean Corpuscular Volume 88.3 fL (80-94); Monocyte% 9.8 % (0-10); NRBC Flagged by Analyzer 0 % (0-5); Neutrophil # 7.03 X10^3/uL (2.7-7.7); Neutrophil % 68.9 % (47-70); Platelet Count 411 K/mm3 (150-450); RBC Distribution Width CV 12.7 % (11.6-14.6); RBC Distribution Width SD 41.1 fl (35.1-43.9); Red Blood Count 4.94 M/mm3 (4.6-6.2); White Blood Count 10.2 K/mm3 (4.4-11.0)
[2021-10-18 07:01] LABS: Anion Gap 7 (5-15); BUN 21 mg/dL (7-18); BUN/Creat Ratio 24.3 RATIO (10-20); Chloride 98 mmol/L (98-107); Creatinine, Serum 0.86 mg/dL (0.70-1.30); EST Glomerular Filtration Rate 95 mL/min (>60); Est Glom Filt Rate - Afr Amer 114 mL/min (>60); Estimated Creatinine Clearance 81.13 ml/min; Glucose 89 mg/dL (74-106); Potassium 4.2 mmol/L (3.5-5.1); Sodium Level 135 mmol/L (136-145)
[2021-10-18] MEDS: dexAMETHasone 10 MG/ML Vial 6 MG IV (09:57)
--- NOTE | 2021-10-18 11:57 | PN.HOSP_ITS ---
Subjective Subjective Doing well, states that his breathing is better. He wants to go home however he still becomes significantly tachycardic when he is upright and ambulating. We will discontinue his Lasix today and monitor Objective Data Objective Data Vital Signs: Vital Signs Temp Pulse Resp BP Pulse Ox 97.7 F L 102 H 18 109/73 93 10/18/21 07:00 10/18/21 11:35 10/18/21 07:00 10/18/21 07:00 10/18/21 08:46 Oxygen Flow Rate (L/min) [ 5 AMBULATING with Oxygen #1] Oxygen Flow Rate (L/min) [At 5 REST with Oxygen] Oxygen Flow Rate (L/min) 5 Oxygen Delivery Method Nasal Cannula Weight: 210 lb 5.136 oz Body Mass Index (BMI) 32.9 Intake & Output: Intake and Output for Last 24 Hours 10/17/21 10/18/21 10/19/21 03:59 03:59 03:59 Intake Total 1950 / 1950 300 / 300 Output Total 650 / 650 Balance 1300 / 1300 300 / 300 Medical Nutrition Assessment Dietitian: Malnutrition Criteria Met Start: 10/17/21 11:11 Freq: Status: Active Protocol: Document 10/17/21 11:11 AG (Rec: 10/17/21 11:11 [id number]) Nutrition Malnutrition Evidence of Malnutrition Exists Yes Malnutrition (moderate): Acute Illness/Injury Evidenced By Suboptimal Energy Intake ( Moderate),Weight Loss (Severe) Intake Problem Inadequate Oral Intake Etiology r/t acute illness, impaired dentition Signs/Symptoms as evidenced by reported decreased appetite, 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 Active Problem Clinical Problem Acute Disease or Injury Related Malnutrition Etiology moderate, acute malnutrition r /t inadequate energy intake w/ acute illness and impaired dentition Signs/Symptoms as evidenced by unintentional wt loss of 34.7#/14% x 2 months, estimated PO intake meeting <75% of estimated energy needs >2 weeks Status Active Problem Recommendation Dietitian Recommendations/Changes continue regular diet as tolerated; pt refusing ensure at this time- will d/c Lab / Micro Data Result Diagrams: 10/18/21 06:10 10/18/21 06:10 Labs: Laboratory Results - last 24 hr 10/18/21 06:10: WBC 10.2, RBC 4.94, Hgb 14.6, Hct 43.6, MCV 88.3, MCH 29.6, MCHC 33.5, RDW Std Deviation 41.1, RDW Coeff of Eryn 12.7, Plt Count 411, MPV 10.0, Immature Gran % (Auto) 1.100 H, Neut % (Auto) 68.9, Lymph % (Auto) 18.5 L, [place] % (Auto) 9.8, Eos % (Auto) 1.0, Baso % (Auto) 0.7, Absolute Neuts (auto) 7.0, Absolute Lymphs (auto) 1.89, Nucleated RBC % 0 10/18/21 06:10: Sodium 135 L, Potassium 4.2, Chloride 98, Carbon Dioxide 30.0, Anion Gap 7, BUN 21 H, Creatinine 0.86, Estim Creat Clear Calc 81.13, Est GFR (MDRD) Af Amer 114, Est GFR (MDRD) Non-Af 95, BUN/Creatinine Ratio 24.3 H, Glucose 89, Calcium 9.0 Micro: Microbiology 10/10/21 13:20 Urine, Random Streptococcus pneumoniae Antigen (M - Final 10/10/21 13:20 Urine, Random Legionella Antigen - Final Physical Exam Const alert, oriented x3 and no apparent distress General Appearance: cooperative HEENT normocephalic and moist oral mucous membranes Eyes PERRL, EOMs intact bilaterally and conjunctivae normal Neck supple and no JVD Resp normal respiratory effort, no retractions and no use of accessory muscles Auscultation: diminished lung sounds; Negative for crackles, rales, rhonchi or wheezes Cardio regular rhythm, S1 normal heart sound, S2 normal heart sound and no murmurs Rate: tachycardic GI soft to palpation, non-tender and non-distended; Negative for hepatosplenomegaly Extremity no clubbing, cyanosis or edema Skin no rashes or lesions noted Neuro no focal motor deficits and no sensory deficits noted Psych affect normal Appearance: appropriate Assessment & Plan Assessment/Plan (1) COVID-19: (2) Acute respiratory failure with hypoxia: PLAN: #Acute hypoxic respiratory failure due to covid 19 pneumonia * Oxygen requirement is improving * patient out of window for remdesivir * on decadron 6mg daily * titrate oxygen to maintain sats >90% * breathing treatment with bronchodilators * ID and pulmonology on board; patient refused baricitinib. * urine for strep and Legionella are negative * Will diuresis today secondary to his tachycardia which is sinus tach #Elevated D dimer * CTA of the chest done was nondiagnostic for PE due to the suboptimal contrast bolus and motion artifact, and moderate bilateral pneumonia with features of covid 19 infection. * on lovenox. DVT: Lovenox Charges/Coding Visit Charges Inpatient E&M: 41520 Subs Hosp L2
[2021-10-19] VITALS (13 sets, daily range): BP systolic 107–116; BP diastolic 69–80; PULSE 62–112; RESP 18; TEMP 36.2–37; O2SAT 4–95
[2021-10-19] MEDS: Enoxaparin 100 MG/ML Syringe 90 MG SC ×2 (05:19→18:00)
[2021-10-19 07:17] LABS: Absolute Lymphocyte Count 2.05 X10^3/uL (0.83-4.51); Absolute Neutrophil Count 6.3 X10^3/uL (2.0-7.7); Basophil# 0.07 X10^3/uL; Basophil% 0.7 % (0-1); Eosinophil# 0.17 X10^3/uL; Eosinophils% 1.8 % (0-5); Hematocrit 41.8 % (40-54); Hemoglobin 13.6 g/dL (13.0-16.5); Lymphocyte # 2.05 X10^3/ul (0.83-4.51); Lymphocyte % 21.3 % (19-41); Mean Corp Hgb Conc 32.5 g/dL (32-36); Mean Corpuscular Hgb 29.1 pg (27.0-32.0); Mean Corpuscular Volume 89.3 fL (80-94); Mean Platelet Vol. 10.8 fl (6.2-12.0); Monocyte# 0.87 X10^3/uL; Monocyte% 9.1 % (0-10); NRBC Flagged by Analyzer 0 % (0-5); Neutrophil # 6.33 X10^3/uL (2.7-7.7); Neutrophil % 65.9 % (47-70); Platelet Count 382 K/mm3 (150-450); RBC Distribution Width CV 12.6 % (11.6-14.6); RBC Distribution Width SD 41.6 fl (35.1-43.9); Red Blood Count 4.68 M/mm3 (4.6-6.2); White Blood Count 9.6 K/mm3 (4.4-11.0)
[2021-10-19 07:38] LABS: Anion Gap 6 (5-15); BUN 22 mg/dL (7-18); BUN/Creat Ratio 24.9 RATIO (10-20); Calcium,Total 8.7 mg/dL (8.5-10.1); Chloride 102 mmol/L (98-107); Creatinine, Serum 0.88 mg/dL (0.70-1.30); EST Glomerular Filtration Rate 92 mL/min (>60); Est Glom Filt Rate - Afr Amer 112 mL/min (>60); Estimated Creatinine Clearance 79.29 ml/min; Glucose 85 mg/dL (74-106); Potassium 4.1 mmol/L (3.5-5.1); Sodium Level 137 mmol/L (136-145)
[2021-10-19] MEDS: Polyethylene Glycol 3350 17 GM PACKET PO (09:52)
--- NOTE | 2021-10-19 11:54 | PN.HOSP_ITS ---
Subjective Subjective Continues to feel like he is improving currently maintaining his oxygen saturations on 4 L however he needed 6 L with ambulation to reach 90% and this is also combined with his intermittent sinus tachycardia. Objective Data Objective Data Vital Signs: Vital Signs Temp Pulse Resp BP Pulse Ox 97.2 F L 108 H 18 115/80 91 10/19/21 09:56 10/19/21 10:24 10/19/21 09:56 10/19/21 09:56 10/19/21 10:00 Oxygen Flow Rate (L/min) [ 6 AMBULATING with Oxygen #2] Oxygen Flow Rate (L/min) [ 4 AMBULATING with Oxygen #1] Oxygen Flow Rate (L/min) [At 4 REST with Oxygen] Oxygen Flow Rate (L/min) 4 Oxygen Delivery Method Nasal Cannula Weight: 210 lb 5.136 oz Body Mass Index (BMI) 32.9 Intake & Output: Intake and Output for Last 24 Hours 10/18/21 10/19/21 10/20/21 03:59 03:59 03:59 Intake Total 300 / 300 Balance 300 / 300 Medical Nutrition Assessment Dietitian: Malnutrition Criteria Met Start: 10/17/21 11:11 Freq: Status: Active Protocol: Document 10/17/21 11:11 (Rec: 10/17/21 11:11 [id number]) Nutrition Malnutrition Evidence of Malnutrition Exists Yes Malnutrition (moderate): Acute Illness/Injury Evidenced By Suboptimal Energy Intake ( Moderate),Weight Loss (Severe) Intake Problem Inadequate Oral Intake Etiology r/t acute illness, impaired dentition Signs/Symptoms as evidenced by reported decreased appetite, unintentional wt loss HELP DESK INTERN of 34.7#/14% x 2 months Status Active Problem Clinical Problem Acute Disease or Injury Related Malnutrition Etiology moderate, acute malnutrition r /t inadequate energy intake w/ acute illness and impaired dentition Signs/Symptoms as evidenced by unintentional wt loss of 34.7#/14% x 2 months, estimated PO intake meeting <75% of estimated energy needs >2 weeks Status Active Problem Recommendation Dietitian Recommendations/Changes continue regular diet as tolerated; pt refusing ensure at this time- will d/c Lab / Micro Data Result Diagrams: 10/19/21 06:01 10/19/21 06:01 Labs: Laboratory Results - last 24 hr 10/19/21 06:01: WBC 9.6, RBC 4.68, Hgb 13.6, Hct 41.8, MCV 89.3, MCH 29.1, MCHC 32.5, RDW Std Deviation 41.6, RDW Coeff of Eryn 12.6, Plt Count 382, MPV 10.8, Immature Gran % (Auto) 1.200 H, Neut % (Auto) 65.9, Lymph % (Auto) 21.3, [place] % (Auto) 9.1, Eos % (Auto) 1.8, Baso % (Auto) 0.7, Absolute Neuts (auto) 6.3, Absolute Lymphs (auto) 2.05, Nucleated RBC % 0 10/19/21 06:01: Sodium 137, Potassium 4.1, Chloride 102, Carbon Dioxide 29.0, Anion Gap 6, BUN 22 H, Creatinine 0.88, Estim Creat Clear Calc 79.29, Est GFR (MDRD) Af Amer 112, Est GFR (MDRD) Non-Af 92, BUN/Creatinine Ratio 24.9 H, Glucose 85, Calcium 8.7 Micro: Microbiology 10/10/21 13:20 Urine, Random Streptococcus pneumoniae Antigen (M - Final 10/10/21 13:20 Urine, Random Legionella Antigen - Final Physical Exam Const alert, oriented x3 and no apparent distress General Appearance: cooperative HEENT normocephalic and moist oral mucous membranes Eyes PERRL, EOMs intact bilaterally and conjunctivae normal Neck supple and no JVD Resp normal respiratory effort, no retractions and no use of accessory muscles Auscultation: diminished lung sounds; Negative for crackles, rales, rhonchi or wheezes Cardio regular rate, regular rhythm, S1 normal heart sound, S2 normal heart sound and no murmurs Rate: tachycardic GI soft to palpation, non-tender and non-distended; Negative for hepatosplenomegaly Extremity no clubbing, cyanosis or edema Skin no rashes or lesions noted Neuro no focal motor deficits and no sensory deficits noted Psych affect normal Appearance: appropriate Assessment & Plan Assessment/Plan (1) COVID-19: (2) Acute respiratory failure with hypoxia: PLAN: #Acute hypoxic respiratory failure due to covid 19 pneumonia * Oxygen requirement is improving * patient out of window for remdesivir * Completed Decadron * titrate oxygen to maintain sats >90% * breathing treatment with bronchodilators * ID and pulmonology on board; patient refused baricitinib. * urine for strep and Legionella are negative * Diuresis is on hold secondary to his sinus tachycardia, he needed 6 L to maintain 90% on ambulation #Elevated D dimer * CTA of the chest done was nondiagnostic for PE due to the suboptimal contrast bolus and motion artifact, and moderate bilateral pneumonia with features of covid 19 infection. * on lovenox. * When we are ready to discharge will likely need to discharge on Eliquis for 3 to 6 months given the suboptimal nondiagnostic CTA for his PE evaluation especially since his D-dimer was significantly elevated at 3.09 on admission DVT: Lovenox Charges/Coding Visit Charges Inpatient E&M: 51903 Subs Hosp L2
[2021-10-20] VITALS (10 sets, daily range): BP systolic 102–113; BP diastolic 57–74; PULSE 74–102; RESP 18; TEMP 36.6–37.2; O2SAT 87–94
[2021-10-20] MEDS: Enoxaparin 100 MG/ML Syringe 90 MG SC (06:33)
[2021-10-20 07:17] LABS: Absolute Neutrophil Count 5.1 X10^3/uL (2.0-7.7); Basophil# 0.05 X10^3/uL; Basophil% 0.6 % (0-1); Eosinophil# 0.17 X10^3/uL; Eosinophils% 2.1 % (0-5); Hematocrit 41.3 % (40-54); Hemoglobin 13.7 g/dL (13.0-16.5); Lymphocyte % 21.3 % (19-41); Mean Corp Hgb Conc 33.2 g/dL (32-36); Mean Corpuscular Hgb 29.4 pg (27.0-32.0); Mean Corpuscular Volume 88.6 fL (80-94); Mean Platelet Vol. 10.3 fl (6.2-12.0); Monocyte# 0.83 X10^3/uL; Monocyte% 10.4 % (0-10); NRBC Flagged by Analyzer 0 % (0-5); Neutrophil # 5.07 X10^3/uL (2.7-7.7); Neutrophil % 63.7 % (47-70); Platelet Count 367 K/mm3 (150-450); RBC Distribution Width CV 12.9 % (11.6-14.6); RBC Distribution Width SD 41.9 fl (35.1-43.9); Red Blood Count 4.66 M/mm3 (4.6-6.2)
--- NOTE | 2021-10-20 07:42 | NURSING ---
walking pulse ox completed this AM. see attached. pts HR stayed around 116-125 during course of ambulation. pt denied dizziness, CP or SOB during this time
[2021-10-20 07:45] LABS: Anion Gap 6 (5-15); BUN 21 mg/dL (7-18); Chloride 104 mmol/L (98-107); Creatinine, Serum 0.96 mg/dL (0.70-1.30); EST Glomerular Filtration Rate 84 mL/min (>60); Est Glom Filt Rate - Afr Amer 102 mL/min (>60); Estimated Creatinine Clearance 72.68 ml/min; Glucose 87 mg/dL (74-106); Potassium 4.3 mmol/L (3.5-5.1); Sodium Level 139 mmol/L (136-145)
[2021-10-20] MEDS: Polyethylene Glycol 3350 17 GM PACKET PO (09:41)
--- NOTE | 2021-10-20 11:03 | DCINST_ITS ---
Discharge Instructions Diet Discharge Diet: No restrictions Activity Discharge Activity: Return to Normal Activity Dressing / Incision Call your doctor if you observe: Fever of 101 or Higher, Shortness of breath, Dizziness, Fainting spells, Swelling in the ankles, Chest pain and Increased palpitations (irregular heartbeat) Follow Up Care Test Results: Test results from this visit will be discussed in further detail at your follow-up appointment, if applicable. Discharge Plan Admission Admit Date/Time: 10/09/21 17:00 Attending Provider: Moisse Olivarez Primary Care Provider: Care Physician,No Primary Consulting Providers: Dio Antunez ; Everett Card ; Wesley Barber ; Sidra Joe AIRCRAFT ELECTRICAL SYSTEMS SPECIALIST Instructions Patient Instructions: Human Coronaviruses Additional Instructions / Restrictions: Plenty of fluids and rest. Tylenol for any fever. Use oxygen all the time currently while you are still ill because your oxygen is running low due to the Covid inflammation in your lungs. If you are not already on it start the prescription Decadron which is a steroid which she will take once a day for the next 10 days to try to help decrease the inflammation in your lungs. If you are feeling a lot worse return to the emergency department you might need to be admitted. Discharge Orders/Prescriptions Prescriptions: New Eliquis 5 mg tablet 5 mg PO BID Qty: 28 RF: 0 Continued promethazine-DM 6.25-15 mg/5 mL syrup 5 ml PO Q6H PRN (Reason: cough) Qty: 118 RF: 0 cyclobenzaprine 10 mg tablet 10 mg PO TID PRN (Reason: Muscle Spasm) Qty: 20 RF: 0 ondansetron 4 mg tablet,disintegrating 4 mg PO Q8H PRN (Reason: nausea and vomiting) Qty: 10 RF: 0 Referrals / Follow Up: Kenneth Jensen MD [STAFF PHYSICIAN] - 1 Week if not improving Care Physician,No Primary [Primary Care Provider] - Disposition Disposition (needs filled in before D/C Order can be placed): Home, Self Care
--- NOTE | 2021-10-20 14:07 | CASEMGMT ---
CHLOÉ COLLAZO NOTE: Ambulatory pulse ox has been completed. Pt qualifies for Home O2: 2 l/m @ rest and 6 l/m w/exertion. CHLOÉ COLLAZO spoke w/ who states the concentrator they have @ home that they purchased only goes up to 5 l/m and they do have a couple portable tanks as well. She was made aware pt is requiring 6 l/m. CHLOÉ COLLAZO placed call to Memorado @ [employer] to inquire about oxygen coverage. She states the type of program pt is enrolled in excludes oxygen and pt is not eligible for sharing. Pt and both made aware. They are both anxious for pt to discharge home today and inquiring if they can pay for larger tank so pt can d/c today. They are aware cost would be approx $200/month supply for concentrator and portable O2 tanks. They are both agreeable to this. Dr Olivarez made aware and script obtained, which has been faxed to [facility]. Portable O2 tank to be provided to pt from [facility] supply. Krysta @ [facility] made aware. inquiring if pt can get any new meds from [facility] pharmacy before going home and would like them delivered to pt's room. Eliquis script has been e-scribed to [facility]. TC to Angelita @ [facility] Retail pharmacy and she was notified would like to have script transferred to [facility] pharmacy. Eliquis 30-day savings card will be applied. Pt denies having any other discharge needs or concerns. Theresa GARCIA RN, CM
--- NOTE | 2021-10-20 19:26 | PCM.DC.SUM ---
Providers Date of Admission: 10/09/21 Primary Care Physician: Dominga Primary Care Phys Consultations 10/10/21 09:29 Consult: Infectious Disease Routine Consulting Provider: Dio Antunez Reason for Consult: respiratory failure due to covid EMERGENT Consult: No Notified: Yes Date Notified: 10/10/21 Time Notified: 11:08 Method of Notification: Text Consult: Patrol Community Service Officer / Pulmonary Medicine Routine Consulting Provider: Pulmonary Medicine angella Newcomb Reason for Consult: acute respiratory failure due to covid 19 pneumonia EMERGENT Consult: No Notified: Yes Date Notified: 10/10/21 Time Notified: 09:30 Method of Notification: Text Reason For Visit: ACUTE HYPOXIC RESPIRATORY FAILURE DUE TO COVID 19 Diagnosis Discharge Diagnosis (1) COVID-19: Status: Acute Code(s): U07.1 - COVID-19 (2) Acute respiratory failure with hypoxia: Status: Acute Code(s): J96.01 - Acute respiratory failure with hypoxia Medications at Discharge Home Medications cyclobenzaprine 10 mg PO TID PRN #20 tablet 09/29/21 promethazine-DM 5 ml PO Q6H PRN #118 ml 09/29/21 ondansetron 4 mg PO Q8H PRN #10 tab 10/03/21 apixaban [Eliquis] 5 mg PO BID #28 tab 10/20/21 Hospital Course Operations None Procedures None Summary of Care Provided Minutes Spent on Discharge: 45 Hospital Course: Per HPI: AVILA OLIVER, is a 66 M with a pMH as outlined who presents with a complaint of shortness of breath, nasal congestion, nausea and vomiting. He tested positive for COVID on 09/27/2021, and his symptoms had started ~ 7 days before then, ~ 09/20/2021. His symptoms have been worsening at home, so he came in to the hospital. He denied any chest pain, nausea, vomiting or diarrhea. Review of systems was otherwise negative. Patient is unvaccinated. Vitals were temperature of 97.1F, HI of 127, RR of 15 and he was saturating at 87% on 4L of oxygen. CBC and BMP were essentially unremarkable and total bilirubin was mildly elevated at 1.3. Chest x-ray showed interval development of multifocal COVID-19 pneumonia bilaterally. He has been admitted to be managed for acute hypoxic respiratory failure due to COVID-19 pneumonia. Hospital Course: #Acute hypoxic respiratory failure due to covid 19 pneumonia Oxygen requirement is improving patient out of window for remdesivir Completed Decadron titrate oxygen to maintain sats >90% breathing treatment with bronchodilators ID and pulmonology on board; patient refused baricitinib. urine for strep and Legionella are negative Diuresis is on hold secondary to his sinus tachycardia, he needed 6 L to maintain 90% on ambulation 10/20/2021: He is requiring 6 L nasal cannula to ambulate at 91%, he is anxious to go home as is his therefore I did discuss with him the risks and benefits of discharge today and the expressed understanding and would still like to go home today. I discussed with him to wear his oxygen at 6 L while asleep as well. He did complete his course of Decadron while here in the hospital so he will not need any on discharge. Hopefully while being at home his sinus tachycardia will resolve as his oxygenation issues improved. He is only requiring around 2 to 3 L nasal cannula rest. #Elevated D dimer CTA of the chest done was nondiagnostic for PE due to the suboptimal contrast bolus and motion artifact, and moderate bilateral pneumonia with features of covid 19 infection. on lovenox. When we are ready to discharge will likely need to discharge on Eliquis for 3 to 6 months given the suboptimal nondiagnostic CTA for his PE evaluation especially since his D-dimer was significantly elevated at 3.09 on admission 10/20/2021: Given the severity of the elevation of his D-dimer even though the CTA was negative he has been on therapeutic Lovenox and will continue with Eliquis for a few weeks Physical Exam Narrative Const alert, oriented x3 and no apparent distress General Appearance: cooperative HEENT normocephalic and moist oral mucous membranes Eyes PERRL, EOMs intact bilaterally and conjunctivae normal Neck supple and no JVD Resp normal respiratory effort, no retractions and no use of accessory muscles Auscultation: diminished lung sounds; Negative for crackles, rales, rhonchi or wheezes Cardio regular rate, regular rhythm, S1 normal heart sound, S2 normal heart sound and no murmurs Rate: tachycardic GI soft to palpation, non-tender and non-distended; Negative for hepatosplenomegaly Extremity no clubbing, cyanosis or edema Skin no rashes or lesions noted Neuro no focal motor deficits and no sensory deficits noted Psych affect normal Appearance: appropriate Weight / BMI Weight Weight: 210 lb 5.136 oz Body Mass Index (BMI) 32.9 ABG / Lab / Microbiology Data Result Diagrams: 10/20/21 06:40 10/20/21 06:40 Laboratory: Laboratory Results - last 24 hr 10/20/21 06:40: WBC 8.0, RBC 4.66, Hgb 13.7, Hct 41.3, MCV 88.6, MCH 29.4, MCHC 33.2, RDW Std Deviation 41.9, RDW Coeff of Eryn 12.9, Plt Count 367, MPV 10.3, Immature Gran % (Auto) 1.900 H, Neut % (Auto) 63.7, Lymph % (Auto) 21.3, [place] % (Auto) 10.4 H, Eos % (Auto) 2.1, Baso % (Auto) 0.6, Absolute Neuts (auto) 5.1, Absolute Lymphs (auto) 1.70, Nucleated RBC % 0 10/20/21 06:40: Sodium 139, Potassium 4.3, Chloride 104, Carbon Dioxide 29.0, Anion Gap 6, BUN 21 H, Creatinine 0.96, Estim Creat Clear Calc 72.68, Est GFR (MDRD) Af Amer 102, Est GFR (MDRD) Non-Af 84, BUN/Creatinine Ratio 22.0 H, Glucose 87, Calcium 9.0 Microbiology: Microbiology 10/10/21 13:20 Urine, Random Streptococcus pneumoniae Antigen (M - Final 10/10/21 13:20 Urine, Random Legionella Antigen - Final D/C Instructions Discharge Diet: No restrictions Call your doctor if you observe: Fever of 101 or Higher, Shortness of breath, Dizziness, Fainting spells, Swelling in the ankles, Chest pain and Increased palpitations (irregular heartbeat) Meaningful Use Info Meaningful Use Diagnoses (Choose all that apply): None applicable Discharge Plan Admission Admit Date/Time: 10/09/21 17:00 Attending Provider: Moises Olivarez Primary Care Provider: Care Physician,No Primary Consulting Providers: Dio Antunez ; Everett Card ; Wesley Barber ; Sidra Joe SURVEY RESEARCHER Instructions Patient Instructions: Human Coronaviruses Additional Instructions / Restrictions: Plenty of fluids and rest. Tylenol for any fever. Use oxygen all the time currently while you are still ill because your oxygen is running low due to the Covid inflammation in your lungs. If you are not already on it start the prescription Decadron which is a steroid which she will take once a day for the next 10 days to try to help decrease the inflammation in your lungs. If you are feeling a lot worse return to the emergency department you might need to be admitted. Discharge Orders/Prescriptions Prescriptions: New Eliquis 5 mg tablet 5 mg PO BID Qty: 28 RF: 0 Continued promethazine-DM 6.25-15 mg/5 mL syrup 5 ml PO Q6H PRN (Reason: cough) Qty: 118 RF: 0 cyclobenzaprine 10 mg tablet 10 mg PO TID PRN (Reason: Muscle Spasm) Qty: 20 RF: 0 ondansetron 4 mg tablet,disintegrating 4 mg PO Q8H PRN (Reason: nausea and vomiting) Qty: 10 RF: 0 Referrals / Follow Up: Kenneth Jensen MD [STAFF PHYSICIAN] - 1 Week if not improving Care Physician,No Primary [Primary Care Provider] - Disposition Disposition (needs filled in before D/C Order can be placed): Home, Self Care Charges/Coding Visit Charges Inpatient E&M: 10461 Disch Hosp
== END 2021-10-20 14:50 | disposition home or self-care (01) | DRG 871 ==
LOC: ED 16:33 → MS3 17:07
PROVIDERS: Internal Medicine Critical Care Medicine; Internal Medicine Infectious Disease; Admitting Provider Student in an Organized Health Care Education/Training Program; Emergency Provider Emergency Medicine; Visit Provider Family Medicine
DX: A41.89 Other specified sepsis (principal); U07.1 COVID-19; J96.01 Acute respiratory failure with hypoxia; J12.82 Pneumonia due to coronavirus disease 2019; E44.0 Moderate protein-calorie malnutrition; K21.9 Gastro-esophageal reflux disease without esophagitis; Z68.32 Body mass index [BMI] 32.0-32.9, adult
CPT/HCPCS: 36415; 71045; 71275; 80048; 80053; 82550; 82962; 83615; 83880; 84145; 85025; 85379; 85384; 86140; 87449; 94660; 94762; 97110; 97116; 97162; 97166; 97530; 97535; 97803; 99284; J7030; Q9967; A4216; J1940; J2405

== ENCOUNTER → 2022-07-14 | Outpatient (CLI) | payer MEDICARE, OTHER, SELFPAY ==
--- NOTE | 2022-07-14 13:12 | MRI_ITS ---
STUDY: MRI LUMBAR SPINE WITHOUT CONTRAST REASON FOR EXAM: Male, 67 years old. SPINAL STENOSIS, SPONDYLOSIS, DISC DEGENERATION TECHNIQUE: Standardized fat and water weighted pulse sequences were obtained in the sagittal and axial planes. COMPARISON: None FINDINGS: Normal lumbar lordosis. There is no substantial scoliosis. Normal conus medullaris that terminates at the T12 level. No marrow edema or fracture or compression deformity is seen. Endplate spurring and mild MODIC endplate degenerative signal is present at all levels. Benign fatty hemangiomas are present in several vertebral bodies. T12-L1: Normal disc height, hydration and morphology. Normal bilateral facet joints. Normal central canal and bilateral lateral recesses. Normal bilateral intervertebral neural foramina. L1-2: Diffuse disc desiccation. Normal disc height and morphology. Normal bilateral facet joints. Normal central canal and bilateral lateral recesses. Normal bilateral intervertebral neural foramina. L2-3: Diffuse disc desiccation with mild disc space narrowing and minimal annular bulging. Mild facet joint hypertrophy. Normal central canal and bilateral lateral recesses. Normal bilateral intervertebral neural foramina. L3-4: Diffuse disc desiccation with mild posterior disc space narrowing resulting in a midline to left paracentral disc protrusion which causes left lateral recess stenosis and compression of descending nerve root. Mild central canal stenosis is also present. Normal right lateral recess. Mild facet joint and ligament of flava hypertrophy. Mild bilateral foraminal stenosis. Slight retrolisthesis of L3 on L4 of 2 to 3 mm. L4-5: Diffuse disc desiccation with minimal posterior disc space narrowing but no bulging or herniation of the disc. Mild facet joint hypertrophy, left greater than right. Moderate right foraminal stenosis with nerve root compression. Mild right foraminal stenosis. Normal central canal and bilateral lateral recesses. Mild to moderate MODIC endplate degenerative signal. L5-S1: There is a healed fracture deformity in the spinous process of L5. Normal disc height, hydration and morphology. Mild facet joint hypertrophy and degeneration. Normal central canal and bilateral lateral recesses. Normal bilateral intervertebral neural foramina. Normal visualized sacral ala. Normal visualized paraspinous soft tissue structures. MRI/Spine Lumbar (Routine) IMPRESSION: 1. Multilevel degenerative changes, as described above. 2. Mild central canal stenosis and left lateral recess stenosis with nerve root compression at L3-L4 Electronically Signed: Jesse Wylie MD at 14:55 EDT ,
== END | disposition home or self-care (01) ==
PROVIDERS: Referring Provider Orthopaedic Surgery; Visit Provider Orthopaedic Surgery
DX: M48.061 Spinal stenosis, lumbar region without neurogenic claudication (principal); M47.816 Spondylosis without myelopathy or radiculopathy, lumbar region; M51.36 Other intervertebral disc degeneration, lumbar region
CPT/HCPCS: 72148

== ENCOUNTER → 2022-10-17 | Outpatient (CLI) | payer MEDICARE, OTHER, SELFPAY ==
--- NOTE | 2022-10-17 16:19 | RAD_ITS ---
EXAM: XR CHEST, 2 VIEWS CLINICAL INDICATION: COUGH TECHNIQUE: Frontal and lateral views of the chest. This report was created using [employer] report generation technology. COMPARISON: 10/09/2021 FINDINGS: LUNGS AND PLEURAL SPACES: Unremarkable. No consolidation or edema. No pneumothorax. No effusion. HEART: Unremarkable. Cardiac silhouette not enlarged. MEDIASTINUM: Central airways and mediastinal contour are unremarkable. BONES/JOINTS: Unremarkable. SOFT TISSUES: Unremarkable. RAD/Chest PA and Lateral IMPRESSION: No radiographic evidence of acute cardiopulmonary disease. Electronically Signed: Renzo Chacon MD at 16:58 EST ,
== END | disposition home or self-care (01) ==
PROVIDERS: PCP Nurse Practitioner Family; Referring Provider Nurse Practitioner Family; Visit Provider Nurse Practitioner Family
DX: R05.9 Cough, unspecified (principal)
CPT/HCPCS: 71046

== ENCOUNTER 2023-09-23 18:30 | Emergency (ER) | payer MEDICARE, OTHER, SELFPAY ==
[2023-09-23 18:31] VITALS: BP 164/98; PULSE 83; RESP 16; TEMP 37; O2SAT 97; BMI 40.0
--- NOTE | 2023-09-23 18:36 | EKG12_ITS ---
Test Reason : CP Blood Pressure : / mmHG Vent. Rate : 082 BPM Atrial Rate : 082 BPM P-R Int : 146 ms QRS Dur : 082 ms QT Int : 360 ms P-R-T Axes : 059 041 061 degrees QTc Int : 420 ms Normal sinus rhythm Normal ECG Confirmed by MORIAH WATSON, BECCA ([id number]), copy editor TEREZA THORNE ([id number]) on 10/01/2023 6:48:57 AM Referred By: Confirmed By:LAUREL MAJOR MD
--- NOTE | 2023-09-23 18:36 | ED.VIS.CHEST ---
HPI History of Present Illness Chief Complaint: Chest Pain Informant: patient Onset/Context/Timing Onset: Today Activity at onset: sudden and light activity Timing: Continuous Quality: Positive for Aching Location: Left Chest Worsened By: Nothing Relieved By: Nothing Associated Symptoms: Positive for Cough; Negative for Nausea, Vomiting, Diaphoresis, Dyspnea, Fever, Lightheadedness, Acid Reflux or Palpitations Narrative Narrative: Patient presents with chest pain that began approximately 30 to 45 minutes prior to arrival. Patient states he was playing and [employer] lights when the pain began. Patient states it was only with light activity. Patient states the pain is over the left side of his chest. Patient describes it as aching. Patient states nothing makes it better and nothing makes it worse. Patient states he has had a recent cough. Patient denies any fevers or chills. Patient denies any nausea or vomiting. Patient denies any shortness of breath or diaphoresis. CVD Risk Factors: Negative for Hypertension, Diabetes, Hypercholesterolemia, Family History 1' </=55 or Smoking PE Risk Factors: Negative for Recent Travel/Surgery, Recent Immobilization, Prior DVT or PE, Cancer or OCP + Smoking + >/=35 PFSH PFSH Medical History (Updated 09/23/23 @ 21:[address] Danilo Metz DO) GERD (gastroesophageal reflux disease) Home Medications cyclobenzaprine 10 mg tablet 10 mg PO TID PRN Muscle Spasm #20 TABLETS 09/29/21 [Rx Last Taken Unknown] promethazine-DM 6.25 mg-15 mg/5 mL oral syrup 5 ml PO Q6H PRN cough #118 mL 09/29/21 [Rx Last Taken Unknown] ondansetron 4 mg disintegrating tablet 4 mg PO Q8H PRN nausea and vomiting #10 tabs 10/03/21 [Rx Last Taken Unknown] apixaban 5 mg tablet (Eliquis) 5 mg PO BID #28 tabs 10/20/21 [Rx Last Taken Unknown] Allergy/AdvReac Type Severity Reaction Status Date / Time No Known Allergies Allergy Verified 09/23/23 18:31 Surgical History (Updated 09/23/23 @ 18:[address] Danilo Metz DO) Hx of cataract surgery Social History Smoking Status: Never smoker ROS ROS ED Constitutional Constitutional ED: Denies chills or fever(s) Eyes Eyes: Denies blurry vision or change in vision ENT ENT ED: Denies rhinorrhea or sore throat Cardiovascular Cardiovascular: Reports as per HPI and chest pain; Denies palpitations Respiratory/Chest Respiratory/Chest: Denies cough or dyspnea Gastrointestinal Gastrointestinal: Denies nausea or vomiting Genitourinary Genitourinary ED: Denies dysuria or hematuria Musculoskeletal Musculoskeletal: Reports back pain; Denies neck pain Integumentary Denies abscess or rash Neurologic Neurologic: Denies headache(s) or weakness Allergic/Immunologic Allergic/Immunologic ED: Denies mouth swelling or urticaria EXAM Physical Exam Const Vital Signs: 09/23/23 18:31 09/23/23 18:33 09/23/23 18:36 Temperature 98.6 F Temperature Source Temporal Pulse Rate 83 Respiratory Rate 16 Respiratory Effort Normal Non-Labored Blood Pressure 164/98 H Blood Pressure Mean 120 Pulse Ox 97 Oxygen Delivery Method Room Air Room Air Positive well nourished, well developed and obese General Appearance ED: well developed and NAD Nutritional Appearance: obese HEENT Reports moist mucous membranes Neck supple and no JVD Chest Wall inspection of chest normal and palpation of chest normal Resp normal respiratory effort and clear to auscultation bilaterally Cardio regular rate and regular rhythm GI soft to palpation, non-tender and non-distended Neuro oriented x3, CN's II-XII intact bilaterally and no sensory deficits noted Sensorium / Orientation: awake and alert Motor Exam: strength 5/5 throughout Psych mental status grossly normal Heart Score History: Slightly/Non-Suspicious ECG: Normal Age: >/= 65 years Risk Factors: No Risk Factors Troponin: </= Normal Limit Score: 2 MDM MDM MDM Narrative Medical decision making narrative: Differential diagnosis includes cardiac dysrhythmia, cardiac ischemia, pneumonia, pneumothorax, electrolyte abnormality, bronchitis, pleurisy, pulmonary embolism, and anxiety. EKG will be obtained to assess for cardiac dysrhythmia and cardiac ischemia. Chest x-ray will be obtained to assess for pneumonia and pneumothorax. CBC will be obtained to assess for anemia and leukocytosis. Basic metabolic profile will be obtained to assess for renal function and electrolyte abnormality. High-sensitivity troponin will be obtained to assess for cardiac ischemia. 2-hour repeat high-sensitivity troponin will be obtained to assess for ongoing cardiac ischemia. D-dimer will be obtained to assess for pulmonary embolism. Lab Data Attestation: I reviewed the patient's lab results. Lab results narrative: CBC was reviewed and was within normal limits. Basic metabolic profile was reviewed and was within normal limits. D-dimer was reviewed and was at less than 0.27. High-sensitivity troponin was reviewed and was normal at 6. 2-hour repeat high-sensitivity troponin was reviewed and was normal at 7. Labs: Laboratory Results - last 24 hr 09/23/23 09/23/23 18:38 20:49 WBC 6.7 RBC 4.86 Hgb 14.3 Hct 43.4 MCV 89.3 MCH 29.4 MCHC 32.9 RDW Std Deviation 43.1 RDW Coeff of Eryn 13.2 Plt Count 213 MPV 11.6 Immature Gran % (Auto) 0.300 Neut % (Auto) 58.1 Lymph % (Auto) 30.3 [place] % (Auto) 7.9 Eos % (Auto) 2.7 Baso % (Auto) 0.7 Absolute Neuts (auto) 3.9 Absolute Lymphs (auto) 2.04 Nucleated RBC % 0 D-Dimer Quant (PE/DVT) < 0.27 L Sodium 140 Potassium 3.8 Chloride 109 H Carbon Dioxide 27.0 Anion Gap 4 L BUN 16 Creatinine 1.21 Estim Creat Clear Calc 54.19 Est GFR (MDRD) Af Amer 77 Est GFR (MDRD) Non-Af 64 BUN/Creatinine Ratio 13.2 Glucose 101 Calcium 9.0 Troponin I High Sens 6 7 Radiography Diagnostic Testing: Clinical Impression(s) from Imaging Studies Chest X-Ray 09/23/23 18:45 IMPRESSION: No radiographic evidence of acute cardiopulmonary disease. Electronically Signed: Curtis Frank MD at 19:24 EST Reading Location ID and State: [facility] / [place] , Service support , Portable 1 view chest x-ray was obtained. On my independent interpretation, lung alaniz are clear. There is normal cardiac silhouette. Bony thorax is normal. There is no acute process noted. Radiologist also interpreted the x-ray and agrees. EKG Initial EKG: Attestation: I personally reviewed and interpreted this EKG as follows: Interpretation: Sinus Rhythm (82) and No Acute Injury Pattern Comments: EKG was obtained. On my independent interpretation, it showed a normal sinus rhythm with a rate of 82. [place] interval, QRS interval, and QTc intervals were all normal. [place] was normal. There are no acute ST or T wave changes. Prior EKG tracings: available for review Prior: Unchanged (10/03/2021) Treatment and Re-Evaluation :: Patient was given aspirin. Patient is feeling better on reevaluation. Patient was advised of his findings. Patient has a HEART score of 2. Patient was advised that this is low risk for acute cardiac event. Patient was instructed to follow-up with his primary care physician in 5 to 7 days. Patient was instructed return if worse in any way. Patient understood and was agreeable with the plan. All questions were answered. Discharge Plan Triage Chief Complaint: Chest Pain ED Provider: Danilo Metz Dx/Rx/DC Orders Clinical Impression: Elevated blood pressure reading, Chest pain Instructions: ED Chest Pain, Uncertain Cause Prescriptions: No Action promethazine-DM 6.25-15 mg/5 mL syrup 5 ml PO Q6H PRN (Reason: cough) Qty: 118 0RF cyclobenzaprine 10 mg tablet 10 mg PO TID PRN (Reason: Muscle Spasm) Qty: 20 0RF ondansetron 4 mg tablet,disintegrating 4 mg PO Q8H PRN (Reason: nausea and vomiting) Qty: 10 0RF Eliquis 5 mg tablet 5 mg PO BID Qty: 28 0RF Primary Care Provider: Tete Vicente Referrals: Tete Vicente, UPHOLSTERY MECHANIC-C [Primary Care Provider] - 5-7 Days Disposition Disposition: Home, Self Care
[2023-09-23] MEDS: Aspirin 81 MG TAB.CHEW 324 MG PO (18:44)
--- NOTE | 2023-09-23 18:45 | RAD_ITS ---
EXAM: XR CHEST, 1 VIEW CLINICAL INDICATION: chest pain TECHNIQUE: Frontal view of the chest. COMPARISON: 10.17.22 FINDINGS: LUNGS AND PLEURAL SPACES: Unremarkable. No consolidation or edema. No pneumothorax. No effusion. HEART: Unremarkable. Cardiac silhouette not enlarged. MEDIASTINUM: Central airways and mediastinal contour are unremarkable. BONES/JOINTS: Unremarkable. No acute fracture. SOFT TISSUES: Unremarkable. RAD/Chest 1 View (Portable) IMPRESSION: No radiographic evidence of acute cardiopulmonary disease. Electronically Signed: Curtis Frank MD at 19:24 EST ,
[2023-09-23 18:51] LABS: Absolute Lymphocyte Count 2.04 X10^3/uL (0.83-4.51); Absolute Neutrophil Count 3.9 X10^3/uL (2.0-7.7); Basophil# 0.05 X10^3/uL; Basophil% 0.7 % (0-1); Eosinophil# 0.18 X10^3/uL; Eosinophils% 2.7 % (0-5); Hematocrit 43.4 % (40-54); Hemoglobin 14.3 g/dL (13.0-16.5); Lymphocyte # 2.04 X10^3/ul (0.83-4.51); Lymphocyte % 30.3 % (19-41); Mean Corp Hgb Conc 32.9 g/dL (32-36); Mean Corpuscular Hgb 29.4 pg (27.0-32.0); Mean Corpuscular Volume 89.3 fL (80-94); Mean Platelet Vol. 11.6 fl (6.2-12.0); Monocyte# 0.53 X10^3/uL; Monocyte% 7.9 % (0-10); NRBC Flagged by Analyzer 0 % (0-5); Neutrophil # 3.91 X10^3/uL (2.7-7.7); Neutrophil % 58.1 % (47-70); Platelet Count 213 K/mm3 (150-450); RBC Distribution Width CV 13.2 % (11.6-14.6); RBC Distribution Width SD 43.1 fl (35.1-43.9); Red Blood Count 4.86 M/mm3 (4.6-6.2); White Blood Count 6.7 K/mm3 (4.4-11.0)
[2023-09-23 19:08] LABS: Anion Gap 4 (5-15); BUN 16 mg/dL (7-18); BUN/Creat Ratio 13.2 RATIO (10-20); Chloride 109 mmol/L (98-107); Creatinine, Serum 1.21 mg/dL (0.70-1.30); EST Glomerular Filtration Rate 64 mL/min (>60); Est Glom Filt Rate - Afr Amer 77 mL/min (>60); Estimated Creatinine Clearance 54.19 ml/min; Glucose 101 mg/dL (74-106); Potassium 3.8 mmol/L (3.5-5.1); Sodium Level 140 mmol/L (136-145); Troponin-I HS (w/2H Reflex) 6 pg/mL (3.0-78.0)
[2023-09-23 19:36] LABS: D-Dimer Quantitative (DVT/PE) < 0.27 FEU/ug/m (0.27-0.49)
[2023-09-23 19:47] VITALS: BP 108/71; PULSE 72; RESP 17; O2SAT 97
[2023-09-23 20:49] LABS: Reflex Troponin-HS? (from REC) Y
[2023-09-23 21:25] LABS: Troponin-I HS 7 pg/mL (3.0-78.0)
== END 2023-09-23 21:47 | disposition home or self-care (01) ==
PROVIDERS: Emergency Provider Emergency Medicine; PCP Nurse Practitioner Family; Visit Provider Emergency Medicine
DX: R03.0 Elevated blood-pressure reading, without diagnosis of hypertension (principal); R07.9 Chest pain, unspecified; E66.9 Obesity, unspecified
CPT/HCPCS: 71045; 80048; 84484; 85025; 85379; 93005; 99285; A4216

== ENCOUNTER → 2023-10-02 | Outpatient (CLI) | payer MEDICARE, OTHER, SELFPAY ==
--- NOTE | 2023-10-02 12:42 | PFT ---
INTRODUCTION: The patient is a 68-year-old male who presents for pulmonary function studies secondary to a diagnosis of cough. Respiratory therapy reported good patient effort. Bronchodilators were used during testing. INTERPRETATION: Forced expiration spirometry demonstrates no evidence of a large airways obstructive ventilatory defect. There was a significant response to aerosolized bronchodilators. Body plethysmography was performed and revealed lung volumes to be within normal limits. Diffusing capacity by single breath CO was also within normal limits. IMPRESSION: Stigmata of small airways disease with significant bronchodilator response noted.
== END | disposition home or self-care (01) ==
LOC: PSN 09:09
PROVIDERS: PCP Nurse Practitioner Family; Referring Provider Nurse Practitioner Family; Visit Provider Nurse Practitioner Family
DX: R05.9 Cough, unspecified (principal)
CPT/HCPCS: 94060; 94726; 94729

== ENCOUNTER 2024-11-22 13:42 | Emergency (ER) | payer MEDICARE, SELFPAY ==
[2024-11-22 13:43] VITALS: BP 147/93; PULSE 112; RESP 18; TEMP 36.8; O2SAT 93; BMI 40.6
--- NOTE | 2024-11-22 13:44 | RAD_ITS ---
PROCEDURE: RIBS UNI MIN 3V W/PA CHEST REASON FOR EXAM: Pain TECHNIQUE: Frontal and bilateral oblique views of the bilateral ribs. COMPARISON: None. FINDINGS: No displaced rib fractures are identified. No suspicious lytic or blastic rib lesions. RAD/Ribs Uni Min 3V w/PA Chest IMPRESSION: NO EVIDENCE OF ACUTE RIB FRACTURE OR PNEUMOTHORAX. Reading Location: [facility]
--- NOTE | 2024-11-22 15:38 | EX.ED.DYSGE1 ---
HPI History of Present Illness Chief Complaint: Chest Other Narrative Narrative: 69-year-old male past medical history of chronic cough presents with right-sided rib pain from an injury that he sustained yesterday. He relates history that his fell yesterday, and when he was going to help her up, he coughed and had immediate pain in the right side of his ribs. Pain is now worse with movement and breathing. Sometimes it doubles him over. Additionally, today started having muscle spasms in his right leg. He denies any fevers or chills, no difficulty breathing. He still has continued cough for which she is still being worked up. He is not taking any analgesics currently. [facility] Medical History GERD (gastroesophageal reflux disease) Home Medications ?Medication ?Instructions ?Recorded ?Last Taken ?Type cyclobenzaprine 10 mg tablet 10 mg PO TID PRN Muscle Spasm #20 09/29/21 Unknown Rx TABLETS promethazine-DM 6.25 mg-15 mg/5 mL 5 ml PO Q6H PRN cough #118 mL 09/29/21 Unknown Rx oral syrup ondansetron 4 mg disintegrating 4 mg PO Q8H PRN nausea and 10/03/21 Unknown Rx tablet vomiting #10 tabs apixaban 5 mg tablet (Eliquis) 5 mg PO BID #28 tabs 10/20/21 Unknown Rx cyclobenzaprine 10 mg tablet 10 mg PO TID PRN Muscle Spasm #20 11/22/24 Unknown Rx TABLETS hydrocodone-acetaminophen 5-325mg 1 tab PO Q6H PRN PRN Pain 3 days 11/22/24 Unknown Rx 5mg-325mg #10 TABLETS Allergy/AdvReac Type Severity Reaction Status Date / Time No Known Allergies Allergy Verified 11/22/24 13:44 Surgical History Hx of cataract surgery Social History Smoking Status: Never smoker ROS ROS ED ROS Narrative Focused review of systems positive for right sided chest wall pain worse with movement and breathing. Right thigh muscle spasms. No fevers or chills. Chronic cough. No nausea or vomiting. EXAM Physical Exam Narrative Exam Narrative: Afebrile. Vital signs noted. Nontoxic-appearing. HEENT examination grossly unremarkable. Cardiovascular examination reveals a regular rate and rhythm. Lungs are clear to auscultation bilaterally. There is no chest wall crepitance, but there is mild tenderness palpation over the right anterior ribs as well as in the intercostal muscle area. Abdomen is soft and nontender with positive bowel sounds. Full range of motion of right lower extremity. Neurological examination nonfocal and nonlateralizing. Const Vital Signs: 11/22/24 13:43 Temperature 98.2 F Temperature Source Oral Pulse Rate 112 H Respiratory Rate 18 Blood Pressure 147/93 H Blood Pressure Mean 111 Pulse Ox 93 Oxygen Delivery Method Room Air MDM MDM MDM Narrative Medical decision making narrative: Differential diagnosis includes but not limited to rib fracture versus intercostal strain versus chest wall strain. I have low suspicion for pneumonia or pneumothorax. He may also have a rib fracture from coughing. His pulse ox is 93% on room air without evidence of hypoxia. I reviewed his EMR and he has GERD listed and reportedly takes Eliquis. Rib x-rays were ordered with PA chest per protocol. On my independent interpretation of his x-rays, there is no evidence of pneumothorax, infiltrate, or rib fracture. I reviewed the radiology report which confirms my independent interpretation. At this point in time, for his muscle pain and suspected chest wall strain, he was given 1 [place] tablet here and prescription written for 10 tablets. He was also placed on cyclobenzaprine which she had been given a prescription for previously. I feel he be discharged safely home with follow-up. Return instructions were reviewed. Disposition is discharged home in stable condition. History & Record Review Discussion w/independent historian: Patient Additional record(s) reviewed:: Prior outpatient record Radiography Diagnostic Testing: Clinical Impression(s) from Imaging Studies Ribs w/Chest X-Ray 11/22/24 13:44 IMPRESSION: NO EVIDENCE OF ACUTE RIB FRACTURE OR PNEUMOTHORAX. Reading Location: [facility] Discharge Plan Triage Chief Complaint: Chest Other ED Provider: Enrique Chen Dx/Rx/DC Orders Clinical Impression: Strain of chest wall, Muscle spasm Instructions: ED Muscle Spasm, ED Chest Wall Strain Prescriptions: New hydrocodone-acetaminophen 5-325 mg tablet 1 tab PO Q6H PRN PRN (Reason: Pain) 3 Days Qty: 10 0RF cyclobenzaprine 10 mg tablet 10 mg PO TID PRN (Reason: Muscle Spasm) Qty: 20 0RF No Action promethazine-DM 6.25-15 mg/5 mL syrup 5 ml PO Q6H PRN (Reason: cough) Qty: 118 0RF cyclobenzaprine 10 mg tablet 10 mg PO TID PRN (Reason: Muscle Spasm) Qty: 20 0RF ondansetron 4 mg tablet,disintegrating 4 mg PO Q8H PRN (Reason: nausea and vomiting) Qty: 10 0RF Eliquis 5 mg tablet 5 mg PO BID Qty: 28 0RF Primary Care Provider: Tete Vicente Referrals: Tete Vicente, PHARMACOLOGIST-C [Primary Care Provider] - 3-5 Days if not improving Activity Restrictions/Additional Instructions: Follow-up with your primary care provider in the next 3 to 5 days. Return with fever, increased difficulty breathing, new or worsening symptoms. Apply ice to affected area 10 to 15 minutes 2-3 times daily. Print Language: Japanese Disposition Disposition: Home, Self Care
[2024-11-22] MEDS: HYDROcodone Bitartrate/Apap 5/325 Tablet PO (15:59)
[2024-11-22 16:01] VITALS: BP 159/93; PULSE 99; RESP 18; TEMP 36.6; O2SAT 93
== END 2024-11-22 16:04 | disposition home or self-care (01) ==
LOC: ED 15:47
PROVIDERS: Emergency Provider Emergency Medicine; PCP Nurse Practitioner Family; Visit Provider Emergency Medicine
DX: S29.011A Strain of muscle and tendon of front wall of thorax, initial encounter (principal); M62.838 Other muscle spasm; X58.XXXA Exposure to other specified factors, initial encounter; R05.3 Chronic cough; K21.9 Gastro-esophageal reflux disease without esophagitis; Z79.01 Long term (current) use of anticoagulants
CPT/HCPCS: 71101; 99282